=== PATIENT | male | born 1935 | race Caucasian/White ===

== ENCOUNTER 2017-11-13 18:32 | Inpatient (IN) | payer OTHER ==
--- NOTE | 2017-11-13 19:05 | PDOC ---
Rapid Medical Evaluation Time Seen by Provider: 11/13/17 18:46 Medical Evaluation: Allergies Allergy/AdvReac Type Severity Reaction Status Date / Time No Known Allergies Allergy Verified 11/13/17 18:46 11/13/17 18:46 Pt c/o: rt toe cellulitis. sent by pcp for iv abx, hx diabetes Pt on brief exam: + erythema to rt 2nd toe Pt ordered for : iv, septic w/u Pt to proceed to the ED Discharge Disposition - Diagnosis Cellulitis - Referrals - Patient Instructions - Post Discharge Activity
[2017-11-13 20:05] LABS: BASO % 0.9 % (0-2.0); EOS % 2.3 % (0-4.5); HEMATOCRIT 35.2 % (35.4-49); HEMOGLOBIN 12.1 GM/dL (11.7-16.9); LYMPH % 24.5 % (8-40); MCHC 34.3 g/dl (32.0-35.9); MEAN CELL VOLUME 87.4 fl (80-96); MEAN PLT VOLUME 8.4 fl (7.5-11.1); MONO % 10.5 % (3.8-10.2); NEUT % 61.8 % (42.8-82.8); PLATELET COUNT 215 K/MM3 (134-434); RBC 4.03 M/mm3 (4.00-5.60); RDW 14.1 % (11.9-15.9); WHITE BLOOD COUNT 5.9 K/mm3 (4.0-10.0)
[2017-11-13 20:28] LABS: INR 1.43 (0.82-1.09); PROTHROMBIN TIME (PATIENT) 16.2 SEC (9.98-11.88)
--- NOTE | 2017-11-13 20:30 | PDOC ---
History of Present Illness - General Chief Complaint: Wound Infection Stated Complaint: PCP ADMIT/CELLULITIS Time Seen by Provider: 11/13/17 18:46 History Source: Patient, Family, Primary Care Provider Exam Limitations: No Limitations - History of Present Illness Initial Comments: 11/13/17 20:21 Patient is an 20-year-old male with history of left knee replacement, diabetes, hypertension, BPH, cellulitis, CAD, status post CABG, referred here for treatment of cellulitis to the right second toe by Dr. Zepeda, podiatry. Patient was sent for admission for IV antibiotics. He has had this redness on his second left toe and has been treated with antibiotics for 1 month with no improvement. She has no complaints of nausea, vomiting, fever, chills, diarrhea. PMD: Dr. Dowling PMHX: as above PSHX: left knee replacement PSOCHX: Negative cig, drugs, EtOH ALL: NKDA GENERAL/CONSTITUTIONAL: [No fever or chills. No weakness. No weight change.] HEAD, EYES, EARS, NOSE AND THROAT: [No change in vision. No ear pain or discharge. No sore throat.] CARDIOVASCULAR: [No chest pain or shortness of breath.] RESPIRATORY: [No cough, wheezing, or hemoptysis.] GASTROINTESTINAL: [No nausea, vomiting, diarrhea or constipation. No rectal bleeding.] GENITOURINARY: [No dysuria, frequency, or change in urination.] MUSCULOSKELETAL: [No joint or muscle swelling or pain. No neck or back pain.] SKIN AND BREASTS: (+) cellulitis, (-) easy bruising.] NEUROLOGIC: [No headache, vertigo, loss of consciousness, or loss of sensation.] PSYCHIATRIC: [No depression or anxiety.] ENDOCRINE: [No increased thirst. No abnormal weight change.] HEMATOLOGIC/LYMPHATIC: [No anemia, easy bleeding, or history of blood clots.] ALLERGIC/IMMUNOLOGIC: [No hives or skin allergy. No latex allergy.] GENERAL: [The patient is awake, alert, and fully oriented, in no acute distress. ] HEAD: [Normal with no signs of trauma.] EYES: [Pupils equal, round and reactive to light, extraocular movements intact, sclera anicteric, conjunctiva clear.] ENT: [Ears normal, nares patent, oropharynx clear without exudates. Moist mucous membranes.] NECK: [Normal range of motion, supple without lymphadenopathy, JVD, or masses.] LUNGS: [Breath sounds equal, clear to auscultation bilaterally. No wheezes, and no crackles.] HEART: [Regular rate and rhythm, normal S1 and S2 without murmur, rub.] ABDOMEN: [Soft, nontender, normoactive bowel sounds. No guarding, no rebound. No masses.] EXTREMITIES: [Normal range of motion, no edema. No clubbing or cyanosis. No cords, erythema, or tenderness.] NEUROLOGICAL: [Cranial nerves II through XII grossly intact. Normal speech, normal gait.] PSYCH: [Normal mood, normal affect.] SKIN: [Warm, Dry, normal turgor, (+) tenderness, erythema to the left 2nd toe Past History - Past Medical History Allergies/Adverse Reactions: Allergies Allergy/AdvReac Type Severity Reaction Status Date / Time No Known Allergies Allergy Verified 11/13/17 18:46 Home Medications: Ambulatory Orders Furosemide [Lasix -] 100 mg PO DAILY 12/28/14 Metoprolol Succinate [Toprol Xl -] 25 mg PO DAILY 12/28/14 Potassium Chloride 20 meq PO DAILY 12/28/14 Tamsulosin HCl 0.4 mg PO DAILY 12/28/14 Aspirin 81 mg PO DAILY 11/13/17 Atorvastatin Ca [Lipitor] 60 mg PO DAILY 11/13/17 Carbidopa/Levodopa *Cr* 50/200 [Sinemet *Cr* 50/200 -] 1 tab PO DAILY 11/13/17 Cyanocobalamin (Vitamin B-12) [Vitamin B-12] 1,000 mcg PO DAILY 11/13/17 Metformin HCl 500 mg PO TID 11/13/17 Torsemide 60 mg PO DAILY 11/13/17 Anemia: No Asthma: No Cancer: No Cardiac Disorders: Yes (CAD) CVA: No COPD: No CHF: No Dementia: No Diabetes: No GI Disorders: No Disorders: Yes (BPH) HTN: Yes Hypercholesterolemia: Yes Liver Disease: No Seizures: No Thyroid Disease: No - Surgical History Cardiac Surgery: Yes (CABG 01/2010) - Immunization History Immunization Up to Date: Yes - Suicide/Smoking/Psychosocial Hx Smoking History: Never smoked Hx Alcohol Use: No Drug/Substance Use Hx: No Substance Use Type: None Hx Substance Use Treatment: No *Physical Exam - Vital Signs Last Vital Signs Temp Pulse Resp BP Pulse Ox 97.5 F L 95 H 18 120/65 98 11/13/17 18:46 11/13/17 18:46 11/13/17 18:46 11/13/17 18:46 11/13/17 18:46 ED Treatment Course - LABORATORY CBC & Chemistry Diagram: 11/13/17 15:45 11/13/17 15:45 - ADDITIONAL ORDERS Additional order review: 11/13/17 15:45 RBC 4.03 MCV 87.4 MCHC 34.3 RDW 14.1 MPV 8.4 Neutrophils % 61.8 Lymphocytes % 24.5 Monocytes % 10.5 H Eosinophils % 2.3 Basophils % 0.9 - RADIOLOGY Radiology Studies Ordered: Category Date Time Status FOOT-RIGHT [RAD] Stat Radiology 11/13/17 19:57 Ordered Medical Decision Making - Medical Decision Making 11/13/17 20:31 Patient is an 20-year-old male with history of left knee replacement, diabetes, hypertension, BPH, cellulitis, CAD, status post CABG, referred here for treatment of cellulitis to the right second toe by Dr. Zepeda, podiatry after treatment with antibx for 1 month. Patient has failed po antibx labs, xray toe IV antibx admit 11/13/17 23:24 xray foot left 2nd toe neg for osteo cxr cardiomegaly, sternotomy wire labs reviewed lactic 3.1 given IVF 30cc/hr zosyn and Vancomycin given repeat lactic ekg SR rate 76, PVC, rbbb, d/w with hosptialist will admit *DC/Admit/Observation/Transfer Diagnosis at time of Disposition: Failure of outpatient treatment Cellulitis Qualifiers: Site of cellulitis: extremity Site of cellulitis of extremity: toe Laterality: right Qualified Code(s): L03.031 - Cellulitis of right toe - Discharge Dispostion Condition at time of disposition: Stable Decision to Admit order Date/Time: 11/13/17 23:35 to medicine - Referrals Referrals: Rafiq Edwards MD [Primary Care Provider] - - Patient Instructions - Post Discharge Activity
[2017-11-13 20:32] LABS: ALBUMIN 2.9 g/dl (3.4-5.0); ANION GAP 8 (8-16); BILIRUBIN,TOTAL 0.4 mg/dL (0.2-1.0); BLOOD UREA NITROGEN 19 mg/dL (7-18); CALCIUM 7.8 mg/dL (8.5-10.1); CHLORIDE 104 mmol/L (98-107); CO2 29 mmol/L (21-32); CREATININE 1.3 mg/dL (0.7-1.3); GLUCOSE,RANDOM 105 mg/dL (74-106); POTASSIUM 3.5 mmol/L (3.5-5.1); SGOT/AST 13 U/L (15-37); SGPT/ALT < 6 U/L (12-78); SODIUM 141 mmol/L (136-145)
[2017-11-13 20:33] LABS: ALK PHOS 61 U/L (45-117)
[2017-11-13] MEDS ORDERED: PIPERACIL/TAZOB 3.375 GM 3.375 GM/50 ML PREMIX IVPB ONE (21:09)
[2017-11-13] MEDS ORDERED: VANCOMYCIN 1,000 MG in DEXTROSE 5%-WATER - 250 ML IVPB ONE (21:09)
[2017-11-13] MEDS ORDERED: SODIUM CHLORIDE 0.9% 1000 ML INFUS.BAG IV SCH (21:15)
--- NOTE | 2017-11-13 21:21 | PDOC ---
*Physical Exam - Vital Signs Last Vital Signs Temp Pulse Resp BP Pulse Ox 97.5 F L 95 H 18 120/65 98 11/13/17 18:46 11/13/17 18:46 11/13/17 18:46 11/13/17 18:46 11/13/17 18:46 ED Treatment Course - LABORATORY CBC & Chemistry Diagram: 11/13/17 15:45 11/13/17 15:45 - ADDITIONAL ORDERS Additional order review: Laboratory Results 11/13/17 11/13/17 11/13/17 19:50 15:45 15:45 PT with INR 16.20 H INR 1.43 H Sodium 141 Potassium 3.5 D Chloride 104 Carbon Dioxide 29 Anion Gap 8 BUN 19 H D Creatinine 1.3 Creat Clearance w eGFR 53.12 Random Glucose 105 Lactic Acid 3.1 H* Calcium 7.8 L Total Bilirubin 0.4 AST 13 L D ALT < 6 L D Alkaline Phosphatase 61 Total Protein 6.0 L Albumin 2.9 L D 11/13/17 15:45 RBC 4.03 MCV 87.4 MCHC 34.3 RDW 14.1 MPV 8.4 Neutrophils % 61.8 Lymphocytes % 24.5 Monocytes % 10.5 H Eosinophils % 2.3 Basophils % 0.9 Medical Decision Making - Medical Decision Making 11/13/17 21:21 The patient was seen and evaluated in conjunction with ROBERTO Yeboah under my direct supervision, ancillary studies were reviewed. I independently interviewed and evaluated the patient and I agree with the plan as outlined by ROBERTO Fitzgerald. *DC/Admit/Observation/Transfer Diagnosis at time of Disposition: Cellulitis Qualifiers: Site of cellulitis: extremity Site of cellulitis of extremity: toe Laterality: right Qualified Code(s): L03.031 - Cellulitis of right toe - Referrals Referrals: Rafiq Edwards MD [Primary Care Provider] - - Patient Instructions - Post Discharge Activity
[2017-11-13] MEDS ORDERED: VANCOMYCIN 1 GRAM (PRE-DOCKED) 1,000 MG/250 ML BAG IVPB ONE (21:27)
[2017-11-13] MEDS ORDERED: PIPERACILLIN/TAZOB 3.375 GM 3.375 GM/50 ML BAG IVPB ONE (21:27)
[2017-11-13 21:39] LABS: URINE APPEARANCE CLEAR; URINE BILIRUBIN NEGATIVE (NEGATIVE); URINE BLOOD NEGATIVE (NEGATIVE); URINE COLOR LTYELLOW; URINE GLUCOSE (UA) NEGATIVE (NEGATIVE); URINE KETONE TRACE (NEGATIVE); URINE LEUK ESTERASE NEGATIVE (NEGATIVE); URINE NITRITE NEGATIVE (NEGATIVE); URINE PROTEIN NEGATIVE (NEGATIVE); URINE UROBILINOGEN NEGATIVE mg/dL (0.2-1.0)
--- NOTE | 2017-11-13 23:29 | PN ---
Teaching Attending Note Name of Resident: Andre Gould ATTENDING PHYSICIAN STATEMENT I saw and evaluated the patient. Chart, data, imaging reviewed. I reviewed the resident's note and discussed the case with the resident. I agree with the resident's findings and plan as documented. 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 Patient was receiving a 10 day course of unknown PO antibiotics for cellulitis of medial right foot. Left second toe erythema began about 3 days ago, associated with some pain, difficulty with ambulation. OBJECTIVE: Last Vital Signs Temp Pulse Resp BP Pulse Ox 97.2 F L 80 20 106/72 97 11/13/17 21:53 11/13/17 22:56 11/13/17 22:56 11/13/17 22:56 11/13/17 22:56 general- aaox3, comfortable, nad heent- no scleral pallor or injection neck-supple cv-s1+s2+ RRR chest- cta b/l, no rales, rhonchi, or wheezing abdomen- soft, nt, BS+ ext- left second toe erythematous, mildly warm to touch, nontender, no ulcers seen on feet. Abnormal Lab Results 11/13/17 11/13/17 11/13/17 15:45 15:45 15:45 Hct 35.2 L D Monocytes % 10.5 H PT with INR INR BUN 19 H D Lactic Acid 3.1 H* Calcium 7.8 L AST 13 L D ALT < 6 L D Total Protein 6.0 L Albumin 2.9 L D Urine Ketones 11/13/17 11/13/17 19:50 21:30 Hct Monocytes % PT with INR 16.20 H INR 1.43 H BUN Lactic Acid Calcium AST ALT Total Protein Albumin Urine Ketones Trace H ASSESSMENT AND PLAN: #Left second toe cellulitis with lactic acidosis and no systemic symptoms. Should evaluate for possible underlying OM, although less likely. Received vancomycin and pip/tazo in ER. -blood cultures x2 -IVF hydration -ESR, CRP -repeat lactate -xray of left foot to evaluate for periosteal elevation -pain control -ID evaluation -vancomycin and pip/tazo -continue home medications for chronic medical problems -heparin sc for DVT ppx
--- NOTE | 2017-11-13 23:38 | PDOC ---
*Physical Exam - Vital Signs Last Vital Signs Temp Pulse Resp BP Pulse Ox 97.2 F L 80 20 106/72 97 11/13/17 21:53 11/13/17 22:56 11/13/17 22:56 11/13/17 22:56 11/13/17 22:56 ED Treatment Course - LABORATORY CBC & Chemistry Diagram: 11/13/17 15:45 11/13/17 15:45 - ADDITIONAL ORDERS Additional order review: Laboratory Results 11/13/17 11/13/17 11/13/17 22:54 21:30 19:50 PT with INR 16.20 H INR 1.43 H Sodium Potassium Chloride Carbon Dioxide Anion Gap BUN Creatinine Creat Clearance w eGFR Random Glucose Lactic Acid 2.0 Calcium Total Bilirubin AST ALT Alkaline Phosphatase Total Protein Albumin Urine Color Ltyellow Urine Appearance Clear Urine pH 5.0 Ur Specific [place] 1.013 Urine Protein Negative Urine Glucose (UA) Negative Urine Ketones Trace H Urine Blood Negative Urine Nitrite Negative Urine Bilirubin Negative Urine Urobilinogen Negative Ur Leukocyte Esterase Negative Blood Type Antibody Screen 11/13/17 11/13/17 11/13/17 15:45 15:45 15:45 PT with INR INR Sodium 141 Potassium 3.5 D Chloride 104 Carbon Dioxide 29 Anion Gap 8 BUN 19 H D Creatinine 1.3 Creat Clearance w eGFR 53.12 Random Glucose 105 Lactic Acid 3.1 H* Calcium 7.8 L Total Bilirubin 0.4 AST 13 L D ALT < 6 L D Alkaline Phosphatase 61 Total Protein 6.0 L Albumin 2.9 L D Urine Color Urine Appearance Urine pH Ur Specific [place] Urine Protein Urine Glucose (UA) Urine Ketones Urine Blood Urine Nitrite Urine Bilirubin Urine Urobilinogen Ur Leukocyte Esterase Blood Type B POSITIVE Antibody Screen Negative 11/13/17 15:45 RBC 4.03 MCV 87.4 MCHC 34.3 RDW 14.1 MPV 8.4 Neutrophils % 61.8 Lymphocytes % 24.5 Monocytes % 10.5 H Eosinophils % 2.3 Basophils % 0.9 - RADIOLOGY Radiology Studies Ordered: Category Date Time Status FOOT-LEFT [RAD] Stat Radiology 11/13/17 22:19 Taken - Medications Given in the ED: ED Medications Discontinued Medications Generic Name Dose Route Start Last Admin Trade Name Freq PRN Reason Stop Dose Admin Vancomycin HCl 1,000 mg/ 250 mls @ 250 mls/hr 11/13/17 21:09 11/13/17 21:45 Dextrose IVPB 11/13/17 22:08 250 mls/hr ONCE ONE Administration Protocol Piperacillin/Tazobactam/Dextrose 3.375 gm 11/13/17 21:09 11/13/17 21:30 Zosyn 3.375gm Ivpb (Premix) IVPB 11/13/17 21:10 3.375 gm ONCE ONE Administration *DC/Admit/Observation/Transfer Diagnosis at time of Disposition: Failure of outpatient treatment Cellulitis Qualifiers: Site of cellulitis: extremity Site of cellulitis of extremity: toe Laterality: right Qualified Code(s): L03.031 - Cellulitis of right toe - Discharge Dispostion Condition at time of disposition: Stable Admit: Yes - Referrals Referrals: Rafiq Edwards MD [Primary Care Provider] - - Patient Instructions - Post Discharge Activity
[2017-11-13] MEDS ORDERED: POTASSIUM CHLORIDE TABS 20 MEQ TABLET.ER (FP) PO ONE (23:45)
--- NOTE | 2017-11-13 23:54 | HP ---
CHIEF COMPLAINT: Left foot swelling PCP: Dr. Mercado HISTORY OF PRESENT ILLNESS: The patient is an 82 yo m w/ PMH DM, HTN, CAD s/p CABG x5 sent by his audit analyst (Dr. Zepeda) to the ED for further evaluation of swelling in his left toe. Patient states that approx 2 weeks ago, he developed swelling and pain in his RIGHT foot. He went to his audit analyst, who prescribed him an unknown antibiotic for 10 days. The patient completed 7 days of this antibiotic with resolution of the pain and swelling. Today, the patient's audit analyst noticed swelling and erythema of his LEFT second toe and sent him to the ED for evaluation. Patient states that the swelling, erythema and pain in his LEFT 2nd toe developed suddenly approx. 3 days ago and got progressively worse, eventually interfering with his walking. Patient and patient's check his feet daily and states that there was no wounds prior to presentation. Patient denies trauma to the area. Patient denies fevers, chills, chest pain, abdominal pain. ER course was notable for: (1) Lactic acidosis 3.1 (2) potassium 3.5 (3) Recent Travel: none PAST MEDICAL HISTORY: DM HTN CAD PAST SURGICAL HISTORY: Left Total knee replacement Social History: Smoking: denies Alcohol: denies Drugs: denies Family History: non-contributory Allergies No Known Allergies Allergy (Verified 11/13/17 18:46) HOME MEDICATIONS: Home Medications Medication Instructions Recorded Furosemide [Lasix -] 100 mg PO DAILY 12/28/14 Metoprolol Succinate [Toprol Xl -] 25 mg PO DAILY 12/28/14 Potassium Chloride 20 meq PO DAILY 12/28/14 Tamsulosin HCl 0.4 mg PO DAILY 12/28/14 Aspirin 81 mg PO DAILY 11/13/17 Atorvastatin Ca [Lipitor] 60 mg PO DAILY 11/13/17 Carbidopa/Levodopa *Cr* 50/200 1 tab PO DAILY 11/13/17 [Sinemet *Cr* 50/200 -] Cyanocobalamin (Vitamin B-12) 1,000 mcg PO DAILY 11/13/17 [Vitamin B-12] Metformin HCl 500 mg PO TID 11/13/17 Torsemide 60 mg PO DAILY 11/13/17 REVIEW OF SYSTEMS CONSTITUTIONAL: Absent: fever, chills, diaphoresis, generalized weakness, malaise, loss of appetite, weight change HEENT: Absent: rhinorrhea, nasal congestion, throat pain, throat swelling, difficulty swallowing, mouth swelling, ear pain, eye pain, visual changes CARDIOVASCULAR: Absent: chest pain, syncope, palpitations, irregular heart rate, lightheadedness , peripheral edema RESPIRATORY: Absent: cough, shortness of breath, dyspnea with exertion, orthopnea, wheezing, stridor, hemoptysis GASTROINTESTINAL: Absent: abdominal pain, abdominal distension, nausea, vomiting, diarrhea, constipation, melena, hematochezia GENITOURINARY: Absent: dysuria, frequency, urgency, hesitancy, hematuria, flank pain, genital pain MUSCULOSKELETAL: Absent: myalgia, arthralgia, back pain, neck pain SKIN: Absent: rash, itching, pallor HEMATOLOGIC/IMMUNOLOGIC: Absent: easy bleeding, easy bruising, lymphadenopathy, frequent infections ENDOCRINE: Absent: unexplained weight gain, unexplained weight loss, heat intolerance, cold intolerance NEUROLOGIC: Absent: headache, focal weakness or paresthesias, dizziness, unsteady gait, seizure, mental status changes, bladder or bowel incontinence PSYCHIATRIC: Absent: anxiety, depression, suicidal or homicidal ideation, hallucinations. PHYSICAL EXAMINATION Vital Signs - 24 hr 11/13/17 11/13/17 11/13/17 18:46 21:53 22:56 Temperature 97.5 F L 97.2 F L Pulse Rate 95 H Pulse Rate [ 70 80 Apical] Respiratory 18 20 20 Rate Blood Pressure 120/65 Blood Pressure 84/57 106/72 [Right Arm] O2 Sat by Pulse 98 97 97 Oximetry (%) GENERAL: Awake, alert, and fully oriented, in no acute distress. HEAD: Normal with no signs of trauma. EYES: Pupils equal, round and reactive to light, extraocular movements intact, sclera anicteric, conjunctiva clear. No lid lag. EARS, NOSE, THROAT: Ears normal, nares patent, oropharynx clear without exudates. Moist mucous membranes. NECK: Normal range of motion, supple without lymphadenopathy, JVD, or masses. LUNGS: Breath sounds equal, clear to auscultation bilaterally. No wheezes, and no crackles. No accessory muscle use. HEART: Regular rate and rhythm, normal S1 and S2 without murmur, rub or gallop. ABDOMEN: Soft, nontender, not distended, normoactive bowel sounds, no guarding, no rebound, no masses. No hepatomegaly or splenomegaly. LOWER EXTREMITIES: 2+ pulses, warm, well-perfused. No calf tenderness. No peripheral edema. NEUROLOGICAL: Cranial nerves II-X intact. Normal speech. Normal gait. PSYCHIATRIC: Cooperative. Good eye contact. Appropriate mood and affect. SKIN: Warm, dry, normal turgor, no rashes or lesions noted, normal capillary refill. There is an area of erythema and swelling on the left second toe. area is warm and tender to palpation or manipulation of the toe. Laboratory Results - last 24 hr 11/13/17 11/13/17 11/13/17 15:45 15:45 15:45 WBC 5.9 RBC 4.03 Hgb 12.1 D Hct 35.2 L D MCV 87.4 MCH 30.0 MCHC 34.3 RDW 14.1 Plt Count 215 D MPV 8.4 Neutrophils % 61.8 Lymphocytes % 24.5 Monocytes % 10.5 H Eosinophils % 2.3 Basophils % 0.9 PT with INR INR Sodium 141 Potassium 3.5 D Chloride 104 Carbon Dioxide 29 Anion Gap 8 BUN 19 H D Creatinine 1.3 Creat Clearance w eGFR 53.12 Random Glucose 105 Lactic Acid 3.1 H* Calcium 7.8 L Total Bilirubin 0.4 AST 13 L D ALT < 6 L D Alkaline Phosphatase 61 Total Protein 6.0 L Albumin 2.9 L D Urine Color Urine Appearance Urine pH Ur Specific [place] Urine Protein Urine Glucose (UA) Urine Ketones Urine Blood Urine Nitrite Urine Bilirubin Urine Urobilinogen Ur Leukocyte Esterase Blood Type Antibody Screen 11/13/17 11/13/17 11/13/17 15:45 19:50 21:30 WBC RBC Hgb Hct MCV MCH MCHC RDW Plt Count MPV Neutrophils % Lymphocytes % Monocytes % Eosinophils % Basophils % PT with INR 16.20 H INR 1.43 H Sodium Potassium Chloride Carbon Dioxide Anion Gap BUN Creatinine Creat Clearance w eGFR Random Glucose Lactic Acid Calcium Total Bilirubin AST ALT Alkaline Phosphatase Total Protein Albumin Urine Color Ltyellow Urine Appearance Clear Urine pH 5.0 Ur Specific [place] 1.013 Urine Protein Negative Urine Glucose (UA) Negative Urine Ketones Trace H Urine Blood Negative Urine Nitrite Negative Urine Bilirubin Negative Urine Urobilinogen Negative Ur Leukocyte Esterase Negative Blood Type B POSITIVE Antibody Screen Negative 11/13/17 22:54 WBC RBC Hgb Hct MCV MCH MCHC RDW Plt Count MPV Neutrophils % Lymphocytes % Monocytes % Eosinophils % Basophils % PT with INR INR Sodium Potassium Chloride Carbon Dioxide Anion Gap BUN Creatinine Creat Clearance w eGFR Random Glucose Lactic Acid 2.0 Calcium Total Bilirubin AST ALT Alkaline Phosphatase Total Protein Albumin Urine Color Urine Appearance Urine pH Ur Specific [place] Urine Protein Urine Glucose (UA) Urine Ketones Urine Blood Urine Nitrite Urine Bilirubin Urine Urobilinogen Ur Leukocyte Esterase Blood Type Antibody Screen ASSESSMENT/PLAN: The patient is an 82 yo m w/ PMH DM , HTN who is being admitted for evaluation of left second toe cellulitis. #Left second toe cellulitis r/o osteomyelitis -s/p vanc/zosyn in ED, will continue -ID consult -f/u XR of left foot -ESR, CRP w/ AM labs -lactic acidosis to 3.1, resolved on repeat -blood and urine culture pending #Mild hypokalemia -3.5 -patient on supplementation as outpatient -40meq now -resume home replacement -trend in AM #diabetes -BGM ACHS -ISS ACHS -HbA1C #HTN -resume home meds #FEN -no fluids indicated -monitor lytes -diabetic diet #Prophylaxis -Hep SQ TID #dispo -admit to med surg Visit type - Emergency Visit Emergency Visit: Yes ED Registration Date: 11/14/17 Care time: The patient presented to the Emergency Department on the above date and was hospitalized for further evaluation of their emergent condition. - New Patient This patient is new to me today: Yes Date on this admission: 11/14/17 - Critical Care Critical Care patient: No Hospitalist Screening - Colonoscopy Questionnaire Colonoscopy Questionnaire: Colonoscopy Questionnaire - Patient: 50 - 75 years old and never had a screening colonoscopy: Unknown History of colon or rectal polyps, or CA: Unknown History of IBD, Crohn's disease or UC: Unknown History of abdominal radiation therapy as a child: Unknown - Relative: 1 with colon or rectal CA, or polyps at age 60 or younger: Unknown Colon or rectal CA diagnosed at age 45 or younger: Unknown Multiple relatives with colon or rectal CA: Unknown - Outcome: Screening Result: Negative Screen
[2017-11-14] MEDS ORDERED: POTASSIUM CHLORIDE TABS 20 MEQ TABLET.ER (FP) PO ONE (00:40)
[2017-11-14 01:45] VITALS: BMI 40.5
[2017-11-14] MEDS ORDERED: PIPERACILLIN/TAZOB 3.375 GM/50 ML PRE-DOCKED IVPB ONE (05:00)
[2017-11-14] MEDS: HEPARIN NA (PORCINE) 5,000 UNITS/ML 1ML VIAL SQ SCH ×3 (05:30→22:10)
[2017-11-14] MEDS: INSULIN SLIDING SCALE (NOVOLOG) 1 VIAL SQ SCH ×4 (06:07→22:10)
[2017-11-14 07:36] LABS: BASO % 0.7 % (0-2.0); EOS % 2.5 % (0-4.5); HEMATOCRIT 34.1 % (35.4-49); HEMOGLOBIN 11.7 GM/dL (11.7-16.9); LYMPH % 23.9 % (8-40); MCH 29.9 pg (25.7-33.7); MCHC 34.3 g/dl (32.0-35.9); MEAN CELL VOLUME 87.2 fl (80-96); MONO % 9.5 % (3.8-10.2); NEUT % 63.4 % (42.8-82.8); PLATELET COUNT 187 K/MM3 (134-434); RBC 3.91 M/mm3 (4.00-5.60); RDW 13.9 % (11.9-15.9); WHITE BLOOD COUNT 6.3 K/mm3 (4.0-10.0)
[2017-11-14 07:46] LABS: INR 1.49 (0.82-1.09); PROTHROMBIN TIME (PATIENT) 16.8 SEC (9.98-11.88)
[2017-11-14 08:15] LABS: CHLORIDE 107 mmol/L (98-107); POTASSIUM 3.6 mmol/L (3.5-5.1); SODIUM 142 mmol/L (136-145)
[2017-11-14 08:21] LABS: ALBUMIN 2.7 g/dl (3.4-5.0); ALK PHOS 47 U/L (45-117); ANION GAP 6 (8-16); BILIRUBIN,TOTAL 0.6 mg/dL (0.2-1.0); BLOOD UREA NITROGEN 14 mg/dL (7-18); CALCIUM 7.5 mg/dL (8.5-10.1); CO2 29 mmol/L (21-32); CREATININE 0.9 mg/dL (0.7-1.3); GLUCOSE,RANDOM 90 mg/dL (74-106); MAGNESIUM 1.8 mg/dL (1.8-2.4); PHOSPHOROUS 2.2 mg/dL (2.5-4.9); SGOT/AST 12 U/L (15-37); SGPT/ALT 10 U/L (12-78); TOT PROT 5.3 g/dl (6.4-8.2)
[2017-11-14] MEDS ORDERED: POTASSIUM PHOSPHATE 30 MM in SODIUM CHLORIDE 500 ML IVPB ONE (08:45)
[2017-11-14] MEDS ORDERED: PT OWN MED DRAWER 7, Y5N ONE ×4 (09:49→23:08)
[2017-11-14] MEDS: TAMSULOSIN HCL 0.4 MG CAP.ER.24H (FP) PO SCH (09:58)
[2017-11-14] MEDS: ASPIRIN 81 MG CHEWABLE TABLETS PO SCH (09:58)
[2017-11-14] MEDS: POTASSIUM CHLORIDE TABS 20 MEQ TABLET.ER (FP) PO SCH (09:59)
[2017-11-14] MEDS: metoPROLOL SUCCINATE 25 MG TAB.SR.24H (FP) PO SCH (10:00)
[2017-11-14] MEDS ORDERED: TORSEMIDE 20 MG TABLET (FP) PO SCH (10:00)
[2017-11-14] MEDS ORDERED: PIPERACILLIN/TAZOB 3.375 GM 3.375 GM in DEXTROSE 5%-WATER - 50 ML IVPB SCH (10:00)
--- NOTE | 2017-11-14 10:03 | EKG ---
Test Reason : Blood Pressure : / mmHG Vent. 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
--- NOTE | 2017-11-14 13:22 | PN ---
Progress Note (short form) - Note Progress Note: ID Consult dictated Cellulitis L 2nd toe ? Soft tissue abscess, dorsum 2nd toe Diabetes mellitus Await c/s Surgical evaluation Empiric vancomycin/ zosyn
--- NOTE | 2017-11-14 14:44 | PN ---
Teaching Attending Note Name of Resident: Lorene Larson ATTENDING PHYSICIAN STATEMENT Time of evaluation: 10:20 AM I saw and evaluated the patient. I reviewed the resident's note and discussed the case with the resident. I agree with the resident's findings and plan as documented. SUBJECTIVE: Patient seen and examined. still with left toe and foot pain, no other complaints, no new fevers, chills. OBJECTIVE: Vital Signs Period Temp Pulse Resp BP Sys/Franco Pulse Ox Last 24 Hr 97.2 F-98.0 F 70-95 18-20 84-120/55-74 97-99 Intake & Output 11/11/17 11/12/17 11/13/17 11/14/17 23:59 23:59 23:59 23:59 Intake Total 2300 700 Output Total 300 250 Balance 2000 450 Weight 237 lb 243 lb 8 oz General: sitting in bed in no acute distress Extremiteis: left second toe 1 cm circular red warm tendern swelling over dorsum , Also 2 cm circular swelling with tenderness but no warmth or erythema over dorsum left foot, positive DP plulses. No swelling or erythema RLE Home Medication List Medication Instructions Recorded Confirmed Type Furosemide [Lasix -] 100 mg PO DAILY 12/28/14 11/13/17 History Metoprolol Succinate [Toprol Xl -] 25 mg PO DAILY 12/28/14 11/13/17 History Potassium Chloride 20 meq PO DAILY 12/28/14 11/13/17 History Tamsulosin HCl 0.4 mg PO DAILY 12/28/14 11/13/17 History Aspirin 81 mg PO DAILY 11/13/17 11/13/17 History Atorvastatin Ca [Lipitor] 60 mg PO DAILY 11/13/17 11/13/17 History Carbidopa/Levodopa *Cr* 50/200 1 tab PO DAILY 11/13/17 11/13/17 History [Sinemet *Cr* 50/200 -] Cyanocobalamin (Vitamin B-12) 1,000 mcg PO DAILY 11/13/17 11/13/17 History [Vitamin B-12] Metformin HCl 500 mg PO TID 11/13/17 11/13/17 History Torsemide 60 mg PO DAILY 11/13/17 11/13/17 History Active Medications Generic Name Dose Route Start Last Admin Trade Name Freq PRN Reason Stop Dose Admin Aspirin 81 mg 11/14/17 10:00 11/14/17 09:58 Asa - PO 81 mg DAILY JESS Administration Atorvastatin Calcium 60 mg 11/14/17 22:00 Lipitor - PO HS JESS Carbidopa/Levodopa 1 combo 11/14/17 10:00 11/14/17 11:44 Sinemet *Cr* 50/200 - PO 1 combo DAILY JESS Administration Heparin Sodium (Porcine) 5,000 unit 11/14/17 06:00 11/14/17 13:47 Heparin - SQ 5,000 unit TID JESS Administration Potassium Phosphate 30 mm/ 510 mls @ 62.5 mls/hr 11/14/17 08:45 11/14/17 10: 01 Sodium Chloride IVPB 11/14/17 16:54 62.5 mls/hr ONCE ONE Administration Vancomycin HCl 1,000 mg/ 250 mls @ 250 mls/hr 11/14/17 14:30 Dextrose IVPB Q12H [facility] Protocol Piperacillin Sod/Tazobactam 50 mls @ 100 mls/hr 11/14/17 18:00 Sod 3.375 gm/ Dextrose IVPB Q8H-IV [facility] Protocol Insulin Aspart 1 vial 11/14/17 07:00 11/14/17 11:38 Novolog Vial Sliding Scale - SQ Not Given ACHS [facility] Protocol Metoprolol Succinate 25 mg 11/14/17 10:00 11/14/17 10:00 Toprol Xl - PO 25 mg DAILY JESS Administration Potassium Chloride 20 meq 11/14/17 10:00 11/14/17 09:59 K-Dur - PO 20 meq DAILY JESS Administration Tamsulosin HCl 0.4 mg 11/14/17 08:30 11/14/17 09:58 Flomax - PO 0.4 mg DAILY@0830 JESS Administration Torsemide 60 mg 11/14/17 10:00 11/14/17 09:58 Demadex - PO 60 mg DAILY JESS Administration Laboratory Results - last 24 hr 11/13/17 11/13/17 11/13/17 15:45 15:45 15:45 WBC 5.9 RBC 4.03 Hgb 12.1 D Hct 35.2 L D MCV 87.4 MCH 30.0 MCHC 34.3 RDW 14.1 Plt Count 215 D MPV 8.4 Neutrophils % 61.8 Lymphocytes % 24.5 Monocytes % 10.5 H Eosinophils % 2.3 Basophils % 0.9 ESR PT with INR INR Sodium 141 Potassium 3.5 D Chloride 104 Carbon Dioxide 29 Anion Gap 8 BUN 19 H D Creatinine 1.3 Creat Clearance w eGFR 53.12 POC Glucometer Random Glucose 105 Hemoglobin A1c % Lactic Acid 3.1 H* Calcium 7.8 L Phosphorus Magnesium Total Bilirubin 0.4 AST 13 L D ALT < 6 L D Alkaline Phosphatase 61 C-Reactive Protein Total Protein 6.0 L Albumin 2.9 L D Urine Color Urine Appearance Urine pH Ur Specific [place] Urine Protein Urine Glucose (UA) Urine Ketones Urine Blood Urine Nitrite Urine Bilirubin Urine Urobilinogen Ur Leukocyte Esterase Blood Type Antibody Screen 11/13/17 11/13/17 11/13/17 15:45 19:50 21:30 WBC RBC Hgb Hct MCV MCH MCHC RDW Plt Count MPV Neutrophils % Lymphocytes % Monocytes % Eosinophils % Basophils % ESR PT with INR 16.20 H INR 1.43 H Sodium Potassium Chloride Carbon Dioxide Anion Gap BUN Creatinine Creat Clearance w eGFR POC Glucometer Random Glucose Hemoglobin A1c % Lactic Acid Calcium Phosphorus Magnesium Total Bilirubin AST ALT Alkaline Phosphatase C-Reactive Protein Total Protein Albumin Urine Color Ltyellow Urine Appearance Clear Urine pH 5.0 Ur Specific [place] 1.013 Urine Protein Negative Urine Glucose (UA) Negative Urine Ketones Trace H Urine Blood Negative Urine Nitrite Negative Urine Bilirubin Negative Urine Urobilinogen Negative Ur Leukocyte Esterase Negative Blood Type B POSITIVE Antibody Screen Negative 11/13/17 11/14/17 11/14/17 22:54 05:25 06:40 WBC RBC Hgb Hct MCV MCH MCHC RDW Plt Count MPV Neutrophils % Lymphocytes % Monocytes % Eosinophils % Basophils % ESR PT with INR INR Sodium 142 Potassium 3.6 Chloride 107 Carbon Dioxide 29 Anion Gap 6 L BUN 14 D Creatinine 0.9 D Creat Clearance w eGFR > 60 POC Glucometer 90 Random Glucose 90 Hemoglobin A1c % Lactic Acid 2.0 Calcium 7.5 L Phosphorus 2.2 L Magnesium 1.8 Total Bilirubin 0.6 D AST 12 L ALT 10 L D Alkaline Phosphatase 47 D C-Reactive Protein 0.9 H Total Protein 5.3 L Albumin 2.7 L Urine Color Urine Appearance Urine pH Ur Specific [place] Urine Protein Urine Glucose (UA) Urine Ketones Urine Blood Urine Nitrite Urine Bilirubin Urine Urobilinogen Ur Leukocyte Esterase Blood Type Antibody Screen 03/02/18 03/02/18 03/02/18 06:40 06:40 06:40 WBC 6.3 RBC 3.91 L Hgb 11.7 Hct 34.1 L MCV 87.2 MCH 29.9 MCHC 34.3 RDW 13.9 Plt Count 187 MPV 8.0 Neutrophils % 63.4 Lymphocytes % 23.9 Monocytes % 9.5 Eosinophils % 2.5 Basophils % 0.7 ESR 24 H PT with INR INR Sodium Potassium Chloride Carbon Dioxide Anion Gap BUN Creatinine Creat Clearance w eGFR POC Glucometer Random Glucose Hemoglobin A1c % 6.2 H Lactic Acid Calcium Phosphorus Magnesium Total Bilirubin AST ALT Alkaline Phosphatase C-Reactive Protein Total Protein Albumin Urine Color Urine Appearance Urine pH Ur Specific [place] Urine Protein Urine Glucose (UA) Urine Ketones Urine Blood Urine Nitrite Urine Bilirubin Urine Urobilinogen Ur Leukocyte Esterase Blood Type Antibody Screen 18 11/14/17 06:40 11:37 WBC RBC Hgb Hct MCV MCH MCHC RDW Plt Count MPV Neutrophils % Lymphocytes % Monocytes % Eosinophils % Basophils % ESR PT with INR 16.80 H INR 1.49 H Sodium Potassium Chloride Carbon Dioxide Anion Gap BUN Creatinine Creat Clearance w eGFR POC Glucometer 107 Random Glucose Hemoglobin A1c % Lactic Acid Calcium Phosphorus Magnesium Total Bilirubin AST ALT Alkaline Phosphatase C-Reactive Protein Total Protein Albumin Urine Color Urine Appearance Urine pH Ur Specific [place] Urine Protein Urine Glucose (UA) Urine Ketones Urine Blood Urine Nitrite Urine Bilirubin Urine Urobilinogen Ur Leukocyte Esterase Blood Type Antibody Screen ASSESSMENT AND PLAN: 82 yom with HTN, DM, CAD s/p CABG/5 stents, ?CHF admitted with left diabetic foot -Left diabetic foot with left second toe cellulitis+/- abscess and ?abscess of dorsum left foot -Lactic acidosis, resolved -CAD s/p CABG/PCI, ?CHF -HTN -NIDDM Plan: Zosyn/vancomycin. ID input appreciated. ?abscess left second toe/dorsum left foot Podiatry consult. Hold off additional IVF for now. lactic acidosis resolved. Torsemide, K, phos supplementation. Hold metformin, ISS, diabetic diet. Continue ASA/statin/metoprolol. DVTPPx dispo pending surgical plans and antibiotic needs. Plan discussed with patient in detail, all questions answered.
--- NOTE | 2017-11-14 15:42 | PN ---
Physical Exam: SUBJECTIVE: Patient seen and examined. Pt c/o pain to dorsum of Left foot. Otherwise, pt has no c/o. Pt denies chest pain, sob, abdominal pain, fever, chills, nausea, vomiting, constipation, diarrhea. OBJECTIVE: Vital Signs Period Temp Pulse Resp BP Sys/Franco Pulse Ox Last 24 Hr 97.2 F-98.0 F 70-95 18-20 84-120/55-74 97-99 GENERAL: The patient is awake, alert, and fully oriented, in no acute distress. LUNGS: Breath sounds equal, clear to auscultation bilaterally, no wheezes, no crackles, no accessory muscle use. HEART: Regular rate and rhythm, S1, S2 without murmur, rub or gallop. ABDOMEN: Soft, nontender, nondistended, normoactive bowel sounds, no guarding. EXTREMITIES: 1+ nelli pulses, warm, well-perfused, no edema. Left 2nd toe erythematous and swollen at Proximal Interphalangeal joint. Dorsum of Left foot quite tender to palpation with 3cm possible abscess/circular swelling. PSYCH: Normal mood, normal affect. Laboratory Results - last 24 hr 11/13/17 11/13/17 11/13/17 15:45 15:45 15:45 WBC 5.9 RBC 4.03 Hgb 12.1 D Hct 35.2 L D MCV 87.4 MCH 30.0 MCHC 34.3 RDW 14.1 Plt Count 215 D MPV 8.4 Neutrophils % 61.8 Lymphocytes % 24.5 Monocytes % 10.5 H Eosinophils % 2.3 Basophils % 0.9 ESR PT with INR INR Sodium 141 Potassium 3.5 D Chloride 104 Carbon Dioxide 29 Anion Gap 8 BUN 19 H D Creatinine 1.3 Creat Clearance w eGFR 53.12 POC Glucometer Random Glucose 105 Hemoglobin A1c % Lactic Acid 3.1 H* Calcium 7.8 L Phosphorus Magnesium Total Bilirubin 0.4 AST 13 L D ALT < 6 L D Alkaline Phosphatase 61 C-Reactive Protein Total Protein 6.0 L Albumin 2.9 L D Urine Color Urine Appearance Urine pH Ur Specific [place] Urine Protein Urine Glucose (UA) Urine Ketones Urine Blood Urine Nitrite Urine Bilirubin Urine Urobilinogen Ur Leukocyte Esterase Blood Type Antibody Screen 11/13/17 11/13/17 11/13/17 15:45 19:50 21:30 WBC RBC Hgb Hct MCV MCH MCHC RDW Plt Count MPV Neutrophils % Lymphocytes % Monocytes % Eosinophils % Basophils % ESR PT with INR 16.20 H INR 1.43 H Sodium Potassium Chloride Carbon Dioxide Anion Gap BUN Creatinine Creat Clearance w eGFR POC Glucometer Random Glucose Hemoglobin A1c % Lactic Acid Calcium Phosphorus Magnesium Total Bilirubin AST ALT Alkaline Phosphatase C-Reactive Protein Total Protein Albumin Urine Color Ltyellow Urine Appearance Clear Urine pH 5.0 Ur Specific [place] 1.013 Urine Protein Negative Urine Glucose (UA) Negative Urine Ketones Trace H Urine Blood Negative Urine Nitrite Negative Urine Bilirubin Negative Urine Urobilinogen Negative Ur Leukocyte Esterase Negative Blood Type B POSITIVE Antibody Screen Negative 11/13/17 11/14/17 11/14/17 22:54 05:25 06:40 WBC RBC Hgb Hct MCV MCH MCHC RDW Plt Count MPV Neutrophils % Lymphocytes % Monocytes % Eosinophils % Basophils % ESR PT with INR INR Sodium 142 Potassium 3.6 Chloride 107 Carbon Dioxide 29 Anion Gap 6 L BUN 14 D Creatinine 0.9 D Creat Clearance w eGFR > 60 POC Glucometer 90 Random Glucose 90 Hemoglobin A1c % Lactic Acid 2.0 Calcium 7.5 L Phosphorus 2.2 L Magnesium 1.8 Total Bilirubin 0.6 D AST 12 L ALT 10 L D Alkaline Phosphatase 47 D C-Reactive Protein 0.9 H Total Protein 5.3 L Albumin 2.7 L Urine Color Urine Appearance Urine pH Ur Specific [place] Urine Protein Urine Glucose (UA) Urine Ketones Urine Blood Urine Nitrite Urine Bilirubin Urine Urobilinogen Ur Leukocyte Esterase Blood Type Antibody Screen 11/14/17 11/14/17 11/14/17 06:40 06:40 06:40 WBC 6.3 RBC 3.91 L Hgb 11.7 Hct 34.1 L MCV 87.2 MCH 29.9 MCHC 34.3 RDW 13.9 Plt Count 187 MPV 8.0 Neutrophils % 63.4 Lymphocytes % 23.9 Monocytes % 9.5 Eosinophils % 2.5 Basophils % 0.7 ESR 24 H PT with INR INR Sodium Potassium Chloride Carbon Dioxide Anion Gap BUN Creatinine Creat Clearance w eGFR POC Glucometer Random Glucose Hemoglobin A1c % 6.2 H Lactic Acid Calcium Phosphorus Magnesium Total Bilirubin AST ALT Alkaline Phosphatase C-Reactive Protein Total Protein Albumin Urine Color Urine Appearance Urine pH Ur Specific [place] Urine Protein Urine Glucose (UA) Urine Ketones Urine Blood Urine Nitrite Urine Bilirubin Urine Urobilinogen Ur Leukocyte Esterase Blood Type Antibody Screen 11/14/17 11/14/17 06:40 11:37 WBC RBC Hgb Hct MCV MCH MCHC RDW Plt Count MPV Neutrophils % Lymphocytes % Monocytes % Eosinophils % Basophils % ESR PT with INR 16.80 H INR 1.49 H Sodium Potassium Chloride Carbon Dioxide Anion Gap BUN Creatinine Creat Clearance w eGFR POC Glucometer 107 Random Glucose Hemoglobin A1c % Lactic Acid Calcium Phosphorus Magnesium Total Bilirubin AST ALT Alkaline Phosphatase C-Reactive Protein Total Protein Albumin Urine Color Urine Appearance Urine pH Ur Specific [place] Urine Protein Urine Glucose (UA) Urine Ketones Urine Blood Urine Nitrite Urine Bilirubin Urine Urobilinogen Ur Leukocyte Esterase Blood Type Antibody Screen Active Medications Generic Name Dose Route Start Last Admin Trade Name Freq PRN Reason Stop Dose Admin Aspirin 81 mg 11/14/17 10:00 11/14/17 09:58 Asa - PO 81 mg DAILY JESS Administration Atorvastatin Calcium 60 mg 11/14/17 22:00 Lipitor - PO HS JESS Carbidopa/Levodopa 1 combo 11/14/17 10:00 11/14/17 11:44 Sinemet *Cr* 50/200 - PO 1 combo DAILY JESS Administration Heparin Sodium (Porcine) 5,000 unit 11/14/17 06:00 11/14/17 13:47 Heparin - SQ 5,000 unit TID JESS Administration Potassium Phosphate 30 mm/ 510 mls @ 62.5 mls/hr 11/14/17 08:45 11/14/17 10: 01 Sodium Chloride IVPB 11/14/17 16:54 62.5 mls/hr ONCE ONE Administration Vancomycin HCl 1,000 mg/ 250 mls @ 250 mls/hr 11/14/17 14:30 Dextrose IVPB Q12H JESS Protocol Piperacillin Sod/Tazobactam 50 mls @ 100 mls/hr 11/14/17 18:00 Sod 3.375 gm/ Dextrose IVPB Q8H-IV [facility] Protocol Insulin Aspart 1 vial 11/14/17 07:00 11/14/17 11:38 Novolog Vial Sliding Scale - SQ Not Given ACHS JESS Protocol Metoprolol Succinate 25 mg 11/14/17 10:00 11/14/17 10:00 Toprol Xl - PO 25 mg DAILY JESS Administration Potassium Chloride 20 meq 11/14/17 10:00 11/14/17 09:59 K-Dur - PO 20 meq DAILY JESS Administration Tamsulosin HCl 0.4 mg 11/14/17 08:30 11/14/17 09:58 Flomax - PO 0.4 mg DAILY@0830 JESS Administration Torsemide 60 mg 11/14/17 10:00 11/14/17 09:58 Demadex - PO 60 mg DAILY JESS Administration IMAGIN11/13/17 CXR -> no acute chest pathology 11/13/17 Left foot xray -> arthritic changes, no acute fracture or destructive bony process noted. ASSESSMENT/PLAN: 82M with PMH of DM, htn, CAD, presents with swelling in dorsum of Left foot and to Left 2nd toe, admitted for Left diabetic foot. # Left diabetic foot with Left 2nd toe cellulitis - ?abscess to Left 2nd toe and /or to dorsum of Left foot - Podiatry Consult - Surgery Consult - ID (Dr. Nguyen) recs appreciated: empiric IV Vancomycin and IV Zosyn Day 2 - f/u blood and urine cultures # NIDDM - BGMs - SSI - hgba1c 6.2, suggesting DM is well controlled - hold home med of Metformin # CAD - continue home meds of ASA and Lipitor # htn - continue home meds of Toprol XL and Torsemide # hypophosphatemia - repleted with KPhos IVPB 30 mm # FEN - Fluids: po - Electrolytes: hypophosphatemia noted, continue to monitor - Nutrition: diabetic diet # Prophylaxis - DVT ppx with Heparin TID - deconditioning ppx with PT Visit type - Emergency Visit Emergency Visit: Yes ED Registration Date: 11/14/17 Care time: The patient presented to the Emergency Department on the above date and was hospitalized for further evaluation of their emergent condition. - New Patient This patient is new to me today: Yes Date on this admission: 11/14/17 - Critical Care Critical Care patient: No
[2017-11-14] MEDS: PIPERACILLIN/TAZOB 3.375 GM 3.375 GM in DEXTROSE 5%-WATER - 50 ML IVPB SCH (17:52)
[2017-11-14] MEDS: DONEPEZIL HCL 10 MG TABLET (FP) PO SCH (17:53)
[2017-11-14] MEDS ORDERED: VANCOMYCIN 1,000 MG in DEXTROSE 5%-WATER - 250 ML IVPB ONE (18:00)
[2017-11-14] MEDS ORDERED: ATORVASTATIN CA 20 MG TABLET (FP) PO SCH (22:00)
[2017-11-14] MEDS: ATORVASTATIN CA 40 MG TABLET (FP) PO SCH (22:10)
--- NOTE | 2017-11-15 00:43 | CONS ---
DATE OF CONSULTATION: DATE OF DICTATION: 11/14/2017 INFECTIOUS DISEASE CONSULTATION HISTORY OF PRESENT ILLNESS : An 82-year-old diabetic male evaluated for cellulitis of the left foot. The patient reports he had developed redness along the medial aspect of the right foot about 10 days prior to admission. 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 He was prescribed an oral antibiotic which he took for 7 days. Over the past 3 days he developed worsening erythema, warmth, and swelling of the left 2nd toe. He denies any traumatic injury to his foot. He denies prior history of serious soft tissue infection requiring hospitalization or history of MRSA. He denies any associated fever or chills. No reports of purulent drainage from the toe. PAST MEDICAL HISTORY: Positive for diabetes mellitus, hypertension, BPH, coronary artery disease, COPD, obstructive sleep apnea, congestive heart failure, osteoarthritis. PAST SURGICAL HISTORY: Status post left total knee replacement, coronary artery bypass . ALLERGIES: No known allergies. MEDICATION: Lasix, Toprol, tamsulosin, aspirin, Lipitor, Sinemet, metformin. SOCIAL HISTORY: Lives at home with his . Nonsmoker. Nondrinker. SYSTEMS REVIEW: Neurologic: No loss of consciousness, seizure activity, or focal weakness. Cardiac: Negative chest pain or palpitations. Respiratory: Negative cough or sputum production. Gastrointestinal: Negative vomiting or diarrhea. Genitourinary: Negative for urinary tract infection. LABORATORY DATA: White count 6.3, hematocrit 34.1, platelet count 187, BUN 14, creatinine 0.9, lactic acid 3.1, ESR 24, C-reactive protein 0.9. Urine leukocyte esterase negative. Chest x-ray negative for fracture or dislocation. PHYSICAL EXAMINATION: General: He is awake and alert, in no acute distress. Vital signs: Temperature 98.0, blood pressure 106/55, pulse 77 regular, respirations 20 per minute. HEENT: Sclerae anicteric. Cardiovascular: Heart sounds S1, S2. Respiratory: Lungs clear. Abdomen: Obese. Soft. Nontender. Extremities: Negative for edema. Right foot, no evidence of erythema, warmth, or swelling. Left foot, there is diffuse swelling of the left 2nd toe with a fluctuant area of the mid dorsal aspect of the toe. No expressible pus is attended to palpation. IMPRESSION: 1. Cellulitis of the left second toe. 2. Possible soft tissue abscess left second toe. 3. Diabetes mellitus. Await cultures. Obtain surgical evaluation. Empiric antibiotic coverage with vancomycin and Zosyn. Local wound care. Will follow. Thank you for the kind referral. EM KNAPP M.D. [id number]
[2017-11-15] MEDS: PIPERACILLIN/TAZOB 3.375 GM 3.375 GM in DEXTROSE 5%-WATER - 50 ML IVPB SCH ×3 (01:45→17:39)
[2017-11-15] MEDS: VANCOMYCIN 1,000 MG in DEXTROSE 5%-WATER - 250 ML IVPB SCH ×2 (02:41→14:03)
[2017-11-15] MEDS: INSULIN SLIDING SCALE (NOVOLOG) 1 VIAL SQ SCH ×4 (06:32→21:55)
[2017-11-15] MEDS: HEPARIN NA (PORCINE) 5,000 UNITS/ML 1ML VIAL SQ SCH ×3 (06:37→21:54)
--- NOTE | 2017-11-15 08:00 | CONSULT ---
Consult - text type - Consultation Consultation Note: Podiatry Consultation: Pleasant 82 year old DM M presents to ED, sent by assistant family teacher, for swelling/ redness/pain L 2nd digit. Patient states he has never had this problem before. Denies F/V/N/C/SOB/CP. Denies injury to the area. Denies any open sores, drainage to the area. Afebrile, VSS. PMHx: DM, HTN, CAD s/p CABG x 5 Meds: noted ALL: NKMA ADELFO: L foot: pedal pulses 1/4, TG wnl, CFT brisk to all toes. There is a rigid contracted 2nd hammer toe deformity with localized erythema and some fluctuance dorsal PIPJ. There is tenderness on palpation and range of motion. There is no open ulcer, no drainage, no streaking cellulitis, no signs of acute infection. Epicritic sensation grossly intact. WBC: 6.3 ESR: 23 Blood Cx: no growth L foot XR: contracture 2nd digit, no evidence of osteomyelitis; exostosis dorsal midfoot Imp: 82 year old DM M with likely L 2nd digit bursitis 1. IV abx per ID 2. Due to biomechanics of foot, often patients with contracted 2nd digit develop bursitis secondary to shoegear irritation which is likely the cause of the localized redness to the toe. If there is concern, further imaging may be warranted, i.e. MRI. Discussed with medical care team. 3. No acute intervention at this time. Thanks for the consult. Joanna Haider DPM
[2017-11-15] MEDS: TAMSULOSIN HCL 0.4 MG CAP.ER.24H (FP) PO SCH (08:15)
[2017-11-15 08:29] LABS: ANION GAP 13 (8-16); BLOOD UREA NITROGEN 9 mg/dL (7-18); CALCIUM 8.9 mg/dL (8.5-10.1); CHLORIDE 104 mmol/L (98-107); CO2 26 mmol/L (21-32); CREATININE 0.9 mg/dL (0.7-1.3); GLUCOSE,RANDOM 111 mg/dL (74-106); MAGNESIUM 2.3 mg/dL (1.8-2.4); PHOSPHOROUS 3.3 mg/dL (2.5-4.9); POTASSIUM 3.7 mmol/L (3.5-5.1); SODIUM 143 mmol/L (136-145)
[2017-11-15 08:31] LABS: HEMATOCRIT 36.8 % (35.4-49); HEMOGLOBIN 12.6 GM/dL (11.7-16.9); MCH 29.9 pg (25.7-33.7); MCHC 34.3 g/dl (32.0-35.9); MEAN PLT VOLUME 8.1 fl (7.5-11.1); PLATELET COUNT 205 K/MM3 (134-434); RBC 4.23 M/mm3 (4.00-5.60); RDW 13.9 % (11.9-15.9); WHITE BLOOD COUNT 5.4 K/mm3 (4.0-10.0)
[2017-11-15] MEDS ORDERED: PT OWN MED DRAWER 7, Y5N ONE ×2 (09:22→17:11)
--- NOTE | 2017-11-15 09:41 | PN ---
Teaching Attending Note Name of Resident: Ton Nuñez ATTENDING PHYSICIAN STATEMENT I saw and evaluated the patient. I reviewed the resident's note and discussed the case with the resident. I agree with the resident's findings and plan as documented. SUBJECTIVE: Patient seen and examined, left foot pain with some improvement, no fevers/ chills or new concerns. OBJECTIVE: Vital Signs Period Temp Pulse Resp BP Sys/Franco Pulse Ox Last 24 Hr 97.7 F-98.4 F 70-80 20-20 115-131/58-70 98 Intake & Output 11/12/17 11/13/17 11/14/17 11/15/17 23:59 23:59 23:59 23:59 Intake Total 2300 1000 Output Total 300 250 Balance 2000 750 Weight 237 lb 243 lb 8 oz 238 lb 5 oz General: sitting in bed in no acute distress Extremities: left foot dorsum swelling with improved tenderness, left second toe with improved erythema, persistent swelling Home Medication List Medication Instructions Recorded Confirmed Type Metoprolol Succinate [Toprol Xl -] 25 mg PO DAILY 12/28/14 11/13/17 History Potassium Chloride 20 meq PO DAILY 12/28/14 11/13/17 History Tamsulosin HCl 0.4 mg PO DAILY 12/28/14 11/13/17 History Aspirin 81 mg PO DAILY 11/13/17 11/13/17 History Atorvastatin Ca [Lipitor] 40 mg PO DAILY 11/13/17 11/14/17 History Carbidopa/Levodopa *Cr* 50/200 1 tab PO TID 11/13/17 11/14/17 History [Sinemet *Cr* 50/200 -] Metformin HCl 500 mg PO TID 11/13/17 11/13/17 History Torsemide 20 mg PO DAILY 11/13/17 11/14/17 History Donepezil HCl [Aricept] 10 mg PO DAILY 11/14/17 11/14/17 History Active Medications Generic Name Dose Route Start Last Admin Trade Name Freq PRN Reason Stop Dose Admin Acetaminophen 650 mg 11/14/17 17:12 Tylenol - PO Q4H PRN PAIN LEVEL 6-10 Aspirin 81 mg 11/14/17 10:00 11/14/17 09:58 Asa - PO 81 mg DAILY JESS Administration Atorvastatin Calcium 40 mg 11/14/17 22:00 11/14/17 22:10 Lipitor - PO 40 mg HS JESS Administration Carbidopa/Levodopa 1 combo 11/14/17 22:00 11/15/17 06:37 Sinemet *Cr* 50/200 - PO 1 combo TID JESS Administration Donepezil HCl 10 mg 11/14/17 15:45 11/14/17 17:53 Aricept - PO 10 mg DAILY JESS Administration Heparin Sodium (Porcine) 5,000 unit 11/14/17 06:00 11/15/17 06:37 Heparin - SQ 5,000 unit TID JESS Administration Vancomycin HCl 1,000 mg/ 250 mls @ 250 mls/hr 11/14/17 14:30 11/15/17 02:41 Dextrose IVPB 250 mls/hr Q12H JESS Administration Protocol Piperacillin Sod/Tazobactam 50 mls @ 100 mls/hr 11/14/17 18:00 11/15/17 01:45 Sod 3.375 gm/ Dextrose IVPB 100 mls/hr Q8H-IV JESS Administration Protocol Insulin Aspart 1 vial 11/14/17 07:00 11/15/17 06:32 Novolog Vial Sliding Scale - SQ Not Given ACHS [facility] Protocol Metoprolol Succinate 25 mg 11/14/17 10:00 11/14/17 10:00 Toprol Xl - PO 25 mg DAILY JESS Administration Potassium Chloride 20 meq 11/14/17 10:00 11/14/17 09:59 K-Dur - PO 20 meq DAILY JESS Administration Tamsulosin HCl 0.4 mg 11/14/17 08:30 11/15/17 08:15 Flomax - PO 0.4 mg DAILY@0830 JESS Administration Torsemide 20 mg 11/14/17 15:34 Demadex - PO DAILY [facility] Laboratory Results - last 24 hr 11/14/17 11/14/17 11/14/17 06:40 06:40 11:37 WBC RBC Hgb Hct MCV MCH MCHC RDW Plt Count MPV Sodium Potassium Chloride Carbon Dioxide Anion Gap BUN Creatinine POC Glucometer 107 Random Glucose Hemoglobin A1c % 6.2 H Uric Acid Calcium Phosphorus Magnesium C-Reactive Protein 0.9 H 11/14/17 11/14/17 11/15/17 17:16 22:09 06:31 WBC RBC Hgb Hct MCV MCH MCHC RDW Plt Count MPV Sodium Potassium Chloride Carbon Dioxide Anion Gap BUN Creatinine POC Glucometer 125 110 115 Random Glucose Hemoglobin A1c % Uric Acid Calcium Phosphorus Magnesium C-Reactive Protein 11/15/17 11/15/17 07:00 07:00 WBC 5.4 RBC 4.23 Hgb 12.6 Hct 36.8 MCV 87.0 MCH 29.9 MCHC 34.3 RDW 13.9 Plt Count 205 MPV 8.1 Sodium 143 Potassium 3.7 Chloride 104 Carbon Dioxide 26 Anion Gap 13 BUN 9 D Creatinine 0.9 POC Glucometer Random Glucose 111 H D Hemoglobin A1c % Uric Acid 6.0 Calcium 8.9 Phosphorus 3.3 D Magnesium 2.3 D C-Reactive Protein Microbiology 11/13/17 21:30 Urine - Urine Clean Catch Urine Culture - Final 11/13/17 15:45 Blood - Peripheral Venous Blood Culture - Preliminary NO GROWTH OBTAINED AFTER 24 HOURS, INCUBATION TO CONTINUE FOR 4 DAYS. 11/13/17 15:45 Blood - Peripheral Venous Blood Culture - Preliminary NO GROWTH OBTAINED AFTER 24 HOURS, INCUBATION TO CONTINUE FOR 4 DAYS. ASSESSMENT AND PLAN: 82 yom with HTN, DM, CAD s/p CABG/5 stents, ?CHF admitted with left diabetic foot -Left diabetic foot with left second toe cellulitis+/- abscess and ?abscess of dorsum left foot -Lactic acidosis, resolved -CAD s/p CABG/PCI, ?CHF -HTN -NIDDM Plan: Zosyn/vancomycin. ID input appreciated. Discussed with Dr. Haider, so plans for surgical intervention now. Left dorsum symptoms suspects from bony spur. Follow up MRI. Hold off additional IVF for now. lactic acidosis resolved. Torsemide, K, phos supplementation. Hold metformin, ISS, diabetic diet. Continue ASA/statin/metoprolol. DVTPPx dispo pending surgical plans and antibiotic needs. Plan discussed with patient in detail, all questions answered.
[2017-11-15] MEDS: TORSEMIDE 20 MG TABLET (FP) PO SCH (09:44)
[2017-11-15] MEDS: POTASSIUM CHLORIDE TABS 20 MEQ TABLET.ER (FP) PO SCH (09:44)
[2017-11-15] MEDS: DONEPEZIL HCL 10 MG TABLET (FP) PO SCH (09:44)
[2017-11-15] MEDS: metoPROLOL SUCCINATE 25 MG TAB.SR.24H (FP) PO SCH (09:44)
[2017-11-15] MEDS: ASPIRIN 81 MG CHEWABLE TABLETS PO SCH (09:44)
--- NOTE | 2017-11-15 10:48 | PN ---
Physical Exam: SUBJECTIVE: Patient seen and examined still complains of pain in his foot. states nothing change since yesterday OBJECTIVE: Vital Signs Period Temp Pulse Resp BP Sys/Franco Pulse Ox Last 24 Hr 97.7 F-98.4 F 70-80 20-20 115-131/58-70 98 GENERAL: The patient is awake, alert, and fully oriented, in no acute distress. LUNGS: Breath sounds equal, clear to auscultation bilaterally, no wheezes, no crackles, no accessory muscle use. HEART: Regular rate and rhythm, S1, S2 without murmur, rub or gallop. ABDOMEN: Soft, nontender, nondistended, normoactive bowel sounds, no guarding. EXTREMITIES: 1+ nelli pulses, warm, well-perfused, no edema. Left 2nd toe erythematous. Dorsum of Left foot quite tender to palpation. PSYCH: Normal mood, normal affect Laboratory Results - last 24 hr 11/14/17 11/14/17 11/14/17 06:40 11:37 17:16 WBC RBC Hgb Hct MCV MCH MCHC RDW Plt Count MPV Sodium Potassium Chloride Carbon Dioxide Anion Gap BUN Creatinine POC Glucometer 107 125 Random Glucose Uric Acid Calcium Phosphorus Magnesium C-Reactive Protein 0.9 H 11/14/17 11/15/17 11/15/17 22:09 06:31 07:00 WBC 5.4 RBC 4.23 Hgb 12.6 Hct 36.8 MCV 87.0 MCH 29.9 MCHC 34.3 RDW 13.9 Plt Count 205 MPV 8.1 Sodium Potassium Chloride Carbon Dioxide Anion Gap BUN Creatinine POC Glucometer 110 115 Random Glucose Uric Acid Calcium Phosphorus Magnesium C-Reactive Protein 11/15/17 07:00 WBC RBC Hgb Hct MCV MCH MCHC RDW Plt Count MPV Sodium 143 Potassium 3.7 Chloride 104 Carbon Dioxide 26 Anion Gap 13 BUN 9 D Creatinine 0.9 POC Glucometer Random Glucose 111 H D Uric Acid 6.0 Calcium 8.9 Phosphorus 3.3 D Magnesium 2.3 D C-Reactive Protein Active Medications Generic Name Dose Route Start Last Admin Trade Name Freq PRN Reason Stop Dose Admin Acetaminophen 650 mg 11/14/17 17:12 Tylenol - PO Q4H PRN PAIN LEVEL 6-10 Aspirin 81 mg 11/14/17 10:00 11/15/17 09:44 Asa - PO 81 mg DAILY JESS Administration Atorvastatin Calcium 40 mg 03/02/18 22:00 11/14/17 22:10 Lipitor - PO 40 mg HS JESS Administration Carbidopa/Levodopa 1 combo 11/14/17 22:00 11/15/17 06:37 Sinemet *Cr* 50/200 - PO 1 combo TID JESS Administration Donepezil HCl 10 mg 11/14/17 15:45 11/15/17 09:44 Aricept - PO 10 mg DAILY JESS Administration Heparin Sodium (Porcine) 5,000 unit 11/14/17 06:00 11/15/17 06:37 Heparin - SQ 5,000 unit TID JESS Administration Vancomycin HCl 1,000 mg/ 250 mls @ 250 mls/hr 11/14/17 14:30 11/15/17 02:41 Dextrose IVPB 250 mls/hr Q12H JESS Administration Protocol Piperacillin Sod/Tazobactam 50 mls @ 100 mls/hr 11/14/17 18:00 11/15/17 09:44 Sod 3.375 gm/ Dextrose IVPB 100 mls/hr Q8H-IV JESS Administration Protocol Insulin Aspart 1 vial 11/14/17 07:00 11/15/17 06:32 Novolog Vial Sliding Scale - SQ Not Given ACHS JESS Protocol Metoprolol Succinate 25 mg 11/14/17 10:00 11/15/17 09:44 Toprol Xl - PO 25 mg DAILY JESS Administration Potassium Chloride 20 meq 11/14/17 10:00 11/15/17 09:44 K-Dur - PO 20 meq DAILY JESS Administration Tamsulosin HCl 0.4 mg 11/14/17 08:30 11/15/17 08:15 Flomax - PO 0.4 mg DAILY@0830 JESS Administration Torsemide 20 mg 11/14/17 15:34 11/15/17 09:44 Demadex - PO 20 mg DAILY JESS Administration ASSESSMENT/PLAN: 82M with PMH of DM, htn, CAD, presents with swelling in dorsum of Left foot and to Left 2nd toe, admitted for Left diabetic foot. # Left diabetic foot with Left 2nd toe cellulitis - continue antibiotics as per ID Podiatry consult appreciated: pain and erythema can be due to bursitis and on dorsum of foot is bony spur MRI pending. # NIDDM - BGMs - hgba1c 6.2, - on insulin sliding scale. - metformin on hold. # CAD - continue home meds of ASA and Lipitor # htn - continue home meds of Toprol XL and Torsemide # hypophosphatemia - improved phos 3.3 # FEN - Fluids: po - Electrolytes: repeat tomorrow - Nutrition: diabetic diet # Prophylaxis - DVT ppx with Heparin TID dispo : med surg Visit type - Emergency Visit Emergency Visit: Yes ED Registration Date: 11/14/17 Care time: The patient presented to the Emergency Department on the above date and was hospitalized for further evaluation of their emergent condition. - New Patient This patient is new to me today: No - Critical Care Critical Care patient: No
[2017-11-15] MEDS: ACETAMINOPHEN 325 MG TABLET (FP) PO PRN ×2 (14:06→22:33)
[2017-11-15] MEDS: ATORVASTATIN CA 40 MG TABLET (FP) PO SCH (21:54)
[2017-11-16] MEDS: PIPERACILLIN/TAZOB 3.375 GM 3.375 GM in DEXTROSE 5%-WATER - 50 ML IVPB SCH ×3 (01:35→17:03)
[2017-11-16] MEDS ORDERED: PT OWN MED DRAWER 7, Y5N ONE ×3 (02:31→21:16)
[2017-11-16] MEDS: VANCOMYCIN 1,000 MG in DEXTROSE 5%-WATER - 250 ML IVPB SCH ×2 (02:35→16:01)
[2017-11-16] MEDS: INSULIN SLIDING SCALE (NOVOLOG) 1 VIAL SQ SCH ×4 (06:11→21:22)
[2017-11-16] MEDS: HEPARIN NA (PORCINE) 5,000 UNITS/ML 1ML VIAL SQ SCH ×3 (06:11→21:21)
[2017-11-16] MEDS: TAMSULOSIN HCL 0.4 MG CAP.ER.24H (FP) PO SCH (08:03)
[2017-11-16] MEDS: ASPIRIN 81 MG CHEWABLE TABLETS PO SCH (09:20)
[2017-11-16] MEDS: TORSEMIDE 20 MG TABLET (FP) PO SCH (09:20)
[2017-11-16] MEDS: metoPROLOL SUCCINATE 25 MG TAB.SR.24H (FP) PO SCH (09:20)
[2017-11-16] MEDS: DONEPEZIL HCL 10 MG TABLET (FP) PO SCH (09:20)
[2017-11-16] MEDS: POTASSIUM CHLORIDE TABS 20 MEQ TABLET.ER (FP) PO SCH (09:20)
--- NOTE | 2017-11-16 13:45 | PN ---
Progress Note, Physician History of Present Illness: C/O pain L great toe No c/o pain L 2nd toe No fever/ chills MRI done , results pending - Current Medication List Current Medications: Active Medications Acetaminophen (Tylenol -) 650 mg PO Q4H PRN PRN Reason: PAIN LEVEL 6-10 Last Admin: 11/15/17 22:33 Dose: 650 mg Aspirin (Asa -) 81 mg PO DAILY [facility] Last Admin: 11/16/17 09:20 Dose: 81 mg Atorvastatin Calcium (Lipitor -) 40 mg PO HS [facility] Last Admin: 11/15/17 21:54 Dose: 40 mg Carbidopa/Levodopa (Sinemet *Cr* 50/200 -) 1 combo PO TID [facility] Last Admin: 11/16/17 06:11 Dose: 1 combo Donepezil HCl (Aricept -) 10 mg PO DAILY [facility] Last Admin: 11/16/17 09:20 Dose: 10 mg Heparin Sodium (Porcine) (Heparin -) 5,000 unit SQ TID [facility] Last Admin: 11/16/17 06:11 Dose: 5,000 unit Vancomycin HCl 1,000 mg/ (Dextrose) 250 mls @ 250 mls/hr IVPB Q12H JESS PRN Reason: Protocol Last Admin: 11/16/17 02:35 Dose: 250 mls/hr Piperacillin Sod/Tazobactam (Sod 3.375 gm/ Dextrose) 50 mls @ 100 mls/hr IVPB Q8H-IV JESS PRN Reason: Protocol Last Admin: 11/16/17 09:20 Dose: 100 mls/hr Insulin Aspart (Novolog Vial Sliding Scale -) 1 vial SQ ACHS JESS PRN Reason: Protocol Last Admin: 11/16/17 10:47 Dose: Not Given Metoprolol Succinate (Toprol Xl -) 25 mg PO DAILY [facility] Last Admin: 11/16/17 09:20 Dose: 25 mg Potassium Chloride (K-Dur -) 20 meq PO DAILY [facility] Last Admin: 11/16/17 09:20 Dose: 20 meq Tamsulosin HCl (Flomax -) 0.4 mg PO DAILY@0830 [facility] Last Admin: 11/16/17 08:03 Dose: 0.4 mg Torsemide (Demadex -) 20 mg PO DAILY [facility] Last Admin: 11/16/17 09:20 Dose: 20 mg - Objective Vital Signs: Vital Signs Temperature 98 F 11/16/17 08:50 Pulse Rate 86 11/16/17 08:50 Respiratory Rate 19 11/16/17 08:50 Blood Pressure 107/59 11/16/17 08:50 O2 Sat by Pulse Oximetry (%) 96 11/16/17 08:50 Constitutional: Yes: No Distress Eyes: Yes: Conjunctiva Clear Cardiovascular: Yes: Regular Rate and Rhythm, S1, S2 Respiratory: Yes: CTA Bilaterally Gastrointestinal: Yes: Normal Bowel Sounds, Soft. No: Tenderness Extremities: Yes: Other (decreased swelling/ erythema L 2nd toe. Small area erythema L 1st MTH) Labs: CBC, BMP 11/15/17 07:00 11/15/17 07:00 INR, PTT INR 1.49 (0.82-1.09) H 11/14/17 06:40 Assessment/Plan Cellulitis L 2nd toe- improved ? Gouty arthritis Diabetes mellitus Await MRI report Continue vanco/ zosyn Check uric acid
--- NOTE | 2017-11-16 15:29 | PN ---
Teaching Attending Note Name of Resident: Zandra Mendiola Time of evaluation: 9:30 AM SUBJECTIVE: Patient seen and examined, left foot symptoms with some improvement, still with pain. no new complaints. OBJECTIVE: Vital Signs Period Temp Pulse Resp BP Sys/Franco Pulse Ox Last 24 Hr 97.8 F-98.8 F 55-86 19-21 107-115/55-70 96-97 Intake & Output 11/13/17 11/14/17 11/15/17 11/16/17 23:59 23:59 23:59 23:59 Intake Total 2300 1000 800 300 Output Total 300 250 Balance 2000 750 800 300 Weight 237 lb 243 lb 8 oz 238 lb 5 oz 234 lb general: sitting in bed in no acute distress Extremities: left second toe persistent swelling with tenderness but resolved erythema, tenderness overal swelling/bony spur dorsum left foot but improved swelling, no overlying erythema noted Abdomen: soft, obese,NT chest: no rales or wheezing Home Medication List Medication Instructions Recorded Confirmed Type Metoprolol Succinate [Toprol Xl -] 25 mg PO DAILY 12/28/14 11/13/17 History Potassium Chloride 20 meq PO DAILY 12/28/14 11/13/17 History Tamsulosin HCl 0.4 mg PO DAILY 12/28/14 11/13/17 History Aspirin 81 mg PO DAILY 11/13/17 11/13/17 History Atorvastatin Ca [Lipitor] 40 mg PO DAILY 11/13/17 11/14/17 History Carbidopa/Levodopa *Cr* 50/200 1 tab PO TID 11/13/17 11/14/17 History [Sinemet *Cr* 50/200 -] Metformin HCl 500 mg PO TID 11/13/17 11/13/17 History Torsemide 20 mg PO DAILY 11/13/17 11/14/17 History Donepezil HCl [Aricept] 10 mg PO DAILY 11/14/17 11/14/17 History Active Medications Generic Name Dose Route Start Last Admin Trade Name Freq PRN Reason Stop Dose Admin Acetaminophen 650 mg 11/14/17 17:12 11/15/17 22:33 Tylenol - PO 650 mg Q4H PRN Administration PAIN LEVEL 6-10 Aspirin 81 mg 11/14/17 10:00 11/16/17 09:20 Asa - PO 81 mg DAILY JESS Administration Atorvastatin Calcium 40 mg 11/14/17 22:00 11/15/17 21:54 Lipitor - PO 40 mg HS JESS Administration Carbidopa/Levodopa 1 combo 11/14/17 22:00 11/16/17 13:56 Sinemet *Cr* 50/200 - PO 1 combo TID JESS Administration Donepezil HCl 10 mg 11/14/17 15:45 11/16/17 09:20 Aricept - PO 10 mg DAILY JESS Administration Heparin Sodium (Porcine) 5,000 unit 11/14/17 06:00 11/16/17 13:56 Heparin - SQ 5,000 unit TID JESS Administration Vancomycin HCl 1,000 mg/ 250 mls @ 250 mls/hr 11/14/17 14:30 11/16/17 02:35 Dextrose IVPB 250 mls/hr Q12H JESS Administration Protocol Piperacillin Sod/Tazobactam 50 mls @ 100 mls/hr 11/14/17 18:00 11/16/17 09:20 Sod 3.375 gm/ Dextrose IVPB 100 mls/hr Q8H-IV JESS Administration Protocol Insulin Aspart 1 vial 11/14/17 07:00 11/16/17 10:47 Novolog Vial Sliding Scale - SQ Not Given ACHS JESS Protocol Metoprolol Succinate 25 mg 11/14/17 10:00 11/16/17 09:20 Toprol Xl - PO 25 mg DAILY JESS Administration Potassium Chloride 20 meq 11/14/17 10:00 11/16/17 09:20 K-Dur - PO 20 meq DAILY JESS Administration Tamsulosin HCl 0.4 mg 11/14/17 08:30 11/16/17 08:03 Flomax - PO 0.4 mg DAILY@0830 JESS Administration Torsemide 20 mg 11/14/17 15:34 11/16/17 09:20 Demadex - PO 20 mg DAILY JESS Administration Laboratory Results - last 24 hr 11/15/17 11/15/17 11/16/17 16:54 21:53 06:10 POC Glucometer 153 108 103 11/16/17 10:46 POC Glucometer 136 Microbiology 11/13/17 15:45 Blood - Peripheral Venous Blood Culture - Preliminary NO GROWTH OBTAINED AFTER 48 HOURS, INCUBATION TO CONTINUE FOR 3 DAYS. 11/13/17 15:45 Blood - Peripheral Venous Blood Culture - Preliminary NO GROWTH OBTAINED AFTER 48 HOURS, INCUBATION TO CONTINUE FOR 3 DAYS. 11/13/17 21:30 Urine - Urine Clean Catch Urine Culture - Final ASSESSMENT AND PLAN: 82 yom with HTN, DM, CAD s/p CABG/5 stents, ?CHF admitted with left diabetic foot -Left diabetic foot with left second toe cellulitis+/- abscess and ?abscess of dorsum left foot -Lactic acidosis, resolved -CAD s/p CABG/PCI, ?CHF -HTN -NIDDM Plan: Zosyn/vancomycin. ID input appreciated. Monitor vanco levels, Check uric acid Discussed with Dr. Haider, so plans for surgical intervention now. Left dorsum symptoms suspects from bony spur. Follow up MRI foot results. Hold off additional IVF for now. lactic acidosis resolved. Torsemide, K, phos supplementation. Hold metformin, ISS, diabetic diet. Continue ASA/statin/metoprolol. DVTPPx dispo pending surgical plans and antibiotic needs. Plan discussed with patient in detail, all questions answered.
[2017-11-16] MEDS: ACETAMINOPHEN 325 MG TABLET (FP) PO PRN (18:38)
[2017-11-16] MEDS: ATORVASTATIN CA 40 MG TABLET (FP) PO SCH (21:21)
[2017-11-17] MEDS ORDERED: PT OWN MED DRAWER 7, Y5N ONE ×4 (01:01→18:06)
[2017-11-17] MEDS: PIPERACILLIN/TAZOB 3.375 GM 3.375 GM in DEXTROSE 5%-WATER - 50 ML IVPB SCH ×3 (01:31→18:18)
[2017-11-17] MEDS: VANCOMYCIN 1,000 MG in DEXTROSE 5%-WATER - 250 ML IVPB SCH ×2 (02:07→15:27)
[2017-11-17] MEDS: HEPARIN NA (PORCINE) 5,000 UNITS/ML 1ML VIAL SQ SCH ×3 (06:13→21:42)
[2017-11-17] MEDS: INSULIN SLIDING SCALE (NOVOLOG) 1 VIAL SQ SCH ×4 (06:14→21:20)
[2017-11-17] MEDS: ACETAMINOPHEN 325 MG TABLET (FP) PO PRN ×2 (06:14→14:30)
[2017-11-17 07:28] LABS: BASO % 0.7 % (0-2.0); EOS % 3.5 % (0-4.5); HEMATOCRIT 37.7 % (35.4-49); HEMOGLOBIN 12.9 GM/dL (11.7-16.9); LYMPH % 25.8 % (8-40); MCH 29.8 pg (25.7-33.7); MCHC 34.1 g/dl (32.0-35.9); MEAN CELL VOLUME 87.2 fl (80-96); MEAN PLT VOLUME 8.5 fl (7.5-11.1); MONO % 10.4 % (3.8-10.2); NEUT % 59.6 % (42.8-82.8); PLATELET COUNT 204 K/MM3 (134-434); RBC 4.32 M/mm3 (4.00-5.60); RDW 13.8 % (11.9-15.9)
[2017-11-17 07:43] LABS: CHLORIDE 105 mmol/L (98-107); POTASSIUM 3.8 mmol/L (3.5-5.1); SODIUM 139 mmol/L (136-145)
[2017-11-17 07:48] LABS: ANION GAP 6 (8-16); BLOOD UREA NITROGEN 11 mg/dL (7-18); CALCIUM 8.1 mg/dL (8.5-10.1); CO2 28 mmol/L (21-32); GLUCOSE,RANDOM 92 mg/dL (74-106); MAGNESIUM 2.3 mg/dL (1.8-2.4); URIC ACID 4.9 mg/dL (2.6-7.2)
[2017-11-17] MEDS: TAMSULOSIN HCL 0.4 MG CAP.ER.24H (FP) PO SCH (09:46)
[2017-11-17] MEDS: DONEPEZIL HCL 10 MG TABLET (FP) PO SCH (09:47)
[2017-11-17] MEDS: metoPROLOL SUCCINATE 25 MG TAB.SR.24H (FP) PO SCH (09:47)
[2017-11-17] MEDS: TORSEMIDE 20 MG TABLET (FP) PO SCH (09:47)
[2017-11-17] MEDS: ASPIRIN 81 MG CHEWABLE TABLETS PO SCH (09:47)
[2017-11-17] MEDS: POTASSIUM CHLORIDE TABS 20 MEQ TABLET.ER (FP) PO SCH (09:47)
--- NOTE | 2017-11-17 14:36 | PN ---
Teaching Attending Note Name of Resident: Lorene Larson ATTENDING PHYSICIAN STATEMENT Time of evaluation: 10:20 AM I saw and evaluated the patient. I reviewed the resident's note and discussed the case with the resident. I agree with the resident's findings and plan as documented. SUBJECTIVE: Patient seen and examined. left foot symptoms overall unchanged, no fevers or chills. OBJECTIVE: Vital Signs Period Temp Pulse Resp BP Sys/Franco Pulse Ox Last 24 Hr 98.1 F-98.5 F 74-95 18-21 106-125/56-59 95-96 Intake & Output 11/14/17 11/15/17 11/16/17 11/17/17 23:59 23:59 23:59 23:59 Intake Total 0355 089 0881 875 Output Total 250 Balance 476 784 2303 875 Weight 243 lb 8 oz 238 lb 5 oz 234 lb 235 lb 12.8 oz general; ambulating in room in no acute distress Extremities: left second toe swelling with tenderness unchanged, improved erythema, left foot dorsum swelling less focal but with more generalized swelling over dorsum, pos DP pulses LLE Home Medication List Medication Instructions Recorded Confirmed Type Metoprolol Succinate [Toprol Xl -] 25 mg PO DAILY 12/28/14 11/13/17 History Potassium Chloride 20 meq PO DAILY 12/28/14 11/13/17 History Tamsulosin HCl 0.4 mg PO DAILY 12/28/14 11/13/17 History Aspirin 81 mg PO DAILY 11/13/17 11/13/17 History Atorvastatin Ca [Lipitor] 40 mg PO DAILY 11/13/17 11/14/17 History Carbidopa/Levodopa *Cr* 50/200 1 tab PO TID 11/13/17 11/14/17 History [Sinemet *Cr* 50/200 -] Metformin HCl 500 mg PO TID 11/13/17 11/13/17 History Torsemide 20 mg PO DAILY 11/13/17 11/14/17 History Donepezil HCl [Aricept] 10 mg PO DAILY 11/14/17 11/14/17 History Active Medications Generic Name Dose Route Start Last Admin Trade Name Freq PRN Reason Stop Dose Admin Acetaminophen 650 mg 11/14/17 17:12 11/17/17 14:30 Tylenol - PO 650 mg Q4H PRN Administration PAIN LEVEL 6-10 Aspirin 81 mg 11/14/17 10:00 11/17/17 09:47 Asa - PO 81 mg DAILY JESS Administration Atorvastatin Calcium 40 mg 11/14/17 22:00 11/16/17 21:21 Lipitor - PO 40 mg HS JESS Administration Carbidopa/Levodopa 1 combo 11/14/17 22:00 11/17/17 14:31 Sinemet *Cr* 50/200 - PO 1 combo TID JESS Administration Donepezil HCl 10 mg 11/14/17 15:45 11/17/17 09:47 Aricept - PO 10 mg DAILY JESS Administration Heparin Sodium (Porcine) 5,000 unit 11/14/17 06:00 11/17/17 14:30 Heparin - SQ 5,000 unit TID JESS Administration Vancomycin HCl 1,000 mg/ 250 mls @ 250 mls/hr 11/14/17 14:30 11/17/17 02:07 Dextrose IVPB 250 mls/hr Q12H JESS Administration Protocol Piperacillin Sod/Tazobactam 50 mls @ 100 mls/hr 11/14/17 18:00 11/17/17 09:47 Sod 3.375 gm/ Dextrose IVPB 100 mls/hr Q8H-IV JESS Administration Protocol Insulin Aspart 1 vial 11/14/17 07:00 11/17/17 11:49 Novolog Vial Sliding Scale - SQ Not Given ACHS JESS Protocol Metoprolol Succinate 25 mg 11/14/17 10:00 11/17/17 09:47 Toprol Xl - PO 25 mg DAILY JESS Administration Potassium Chloride 20 meq 11/14/17 10:00 11/17/17 09:47 K-Dur - PO 20 meq DAILY JESS Administration Tamsulosin HCl 0.4 mg 11/14/17 08:30 11/17/17 09:46 Flomax - PO 0.4 mg DAILY@0830 JESS Administration Torsemide 20 mg 11/14/17 15:34 11/17/17 09:47 Demadex - PO 20 mg DAILY JESS Administration Laboratory Results - last 24 hr 11/16/17 11/16/17 11/16/17 15:00 16:41 21:21 WBC RBC Hgb Hct MCV MCH MCHC RDW Plt Count MPV Neutrophils % Lymphocytes % Monocytes % Eosinophils % Basophils % Sodium Potassium Chloride Carbon Dioxide Anion Gap BUN Creatinine POC Glucometer 116 94 Random Glucose Uric Acid Calcium Phosphorus Magnesium Vancomycin Pre-Dose 15.5 H* 11/17/17 11/17/17 11/17/17 06:13 06:35 06:35 WBC 6.0 RBC 4.32 Hgb 12.9 Hct 37.7 MCV 87.2 MCH 29.8 MCHC 34.1 RDW 13.8 Plt Count 204 MPV 8.5 Neutrophils % 59.6 Lymphocytes % 25.8 Monocytes % 10.4 H Eosinophils % 3.5 Basophils % 0.7 Sodium 139 Potassium 3.8 Chloride 105 Carbon Dioxide 28 Anion Gap 6 L BUN 11 D Creatinine 1.0 POC Glucometer 89 Random Glucose 92 Uric Acid 4.9 Calcium 8.1 L Phosphorus 3.0 Magnesium 2.3 Vancomycin Pre-Dose 11/17/17 11:49 WBC RBC Hgb Hct MCV MCH MCHC RDW Plt Count MPV Neutrophils % Lymphocytes % Monocytes % Eosinophils % Basophils % Sodium Potassium Chloride Carbon Dioxide Anion Gap BUN Creatinine POC Glucometer 123 Random Glucose Uric Acid Calcium Phosphorus Magnesium Vancomycin Pre-Dose Microbiology 11/13/17 15:45 Blood - Peripheral Venous Blood Culture - Preliminary NO GROWTH OBTAINED AFTER 72 HOURS, INCUBATION TO CONTINUE FOR 2 DAYS. 11/13/17 15:45 Blood - Peripheral Venous Blood Culture - Preliminary NO GROWTH OBTAINED AFTER 72 HOURS, INCUBATION TO CONTINUE FOR 2 DAYS. 11/13/17 21:30 Urine - Urine Clean Catch Urine Culture - Final ASSESSMENT AND PLAN: 82 yom with HTN, DM, CAD s/p CABG/5 stents, ?CHF admitted with left diabetic foot -Left diabetic foot with left second toe cellulitis+/- abscess and ?abscess of dorsum left foot -Lactic acidosis, resolved -CAD s/p CABG/PCI, ?CHF -HTN -NIDDM Plan: Zosyn/vancomycin day 4. ID input appreciated. Monitor vanco levels, uric acid normal. Left dorsum symptoms suspected from bony spur. MRI foot suspicious for early osteomyelitis. Follow up with ID/podiatry. Hold off additional IVF for now. lactic acidosis resolved. Torsemide, K, phos supplementation. Hold metformin, ISS, diabetic diet. Continue ASA/statin/metoprolol. DVTPPx dispo pending surgical plans and antibiotic needs. Plan discussed with patient in detail, all questions answered.
--- NOTE | 2017-11-17 17:08 | PN ---
Physical Exam: SUBJECTIVE: Patient seen and examined. Pt c/o pain to dorsum of Left foot. Otherwise, pt has no c/o. Pt denies chest pain, sob, abdominal pain, fever, chills, nausea, vomiting, constipation, diarrhea. OBJECTIVE: Vital Signs Period Temp Pulse Resp BP Sys/Franco Pulse Ox Last 24 Hr 98.1 F-98.5 F 74-95 18-21 106-125/56-59 95-96 GENERAL: The patient is awake, alert, and fully oriented, in no acute distress. LUNGS: Breath sounds equal, clear to auscultation bilaterally, no wheezes, no crackles, no accessory muscle use. HEART: Regular rate and rhythm, S1, S2 without murmur, rub or gallop. ABDOMEN: Soft, nontender, nondistended, normoactive bowel sounds, no guarding. EXTREMITIES: 1+ nelli pulses, warm, well-perfused, no edema. Left 2nd toe erythema improved, but swelling still present at Proximal Interphalangeal joint. Dorsum of Left foot quite tender to palpation with diffuse edema over dorsum. PSYCH: Normal mood, normal affect. Laboratory Results - last 24 hr 11/16/17 11/16/17 11/17/17 16:41 21:21 06:13 WBC RBC Hgb Hct MCV MCH MCHC RDW Plt Count MPV Neutrophils % Lymphocytes % Monocytes % Eosinophils % Basophils % Sodium Potassium Chloride Carbon Dioxide Anion Gap BUN Creatinine POC Glucometer 116 94 89 Random Glucose Uric Acid Calcium Phosphorus Magnesium 11/17/17 11/17/17 11/17/17 06:35 06:35 11:49 WBC 6.0 RBC 4.32 Hgb 12.9 Hct 37.7 MCV 87.2 MCH 29.8 MCHC 34.1 RDW 13.8 Plt Count 204 MPV 8.5 Neutrophils % 59.6 Lymphocytes % 25.8 Monocytes % 10.4 H Eosinophils % 3.5 Basophils % 0.7 Sodium 139 Potassium 3.8 Chloride 105 Carbon Dioxide 28 Anion Gap 6 L BUN 11 D Creatinine 1.0 POC Glucometer 123 Random Glucose 92 Uric Acid 4.9 Calcium 8.1 L Phosphorus 3.0 Magnesium 2.3 Active Medications Generic Name Dose Route Start Last Admin Trade Name Freq PRN Reason Stop Dose Admin Acetaminophen 650 mg 11/14/17 17:12 11/17/17 14:30 Tylenol - PO 650 mg Q4H PRN Administration PAIN LEVEL 6-10 Aspirin 81 mg 11/14/17 10:00 11/17/17 09:47 Asa - PO 81 mg DAILY JESS Administration Atorvastatin Calcium 40 mg 11/14/17 22:00 11/16/17 21:21 Lipitor - PO 40 mg HS JESS Administration Carbidopa/Levodopa 1 combo 11/14/17 22:00 11/17/17 14:31 Sinemet *Cr* 50/200 - PO 1 combo TID JESS Administration Donepezil HCl 10 mg 11/14/17 15:45 11/17/17 09:47 Aricept - PO 10 mg DAILY JESS Administration Heparin Sodium (Porcine) 5,000 unit 11/14/17 06:00 11/17/17 14:30 Heparin - SQ 5,000 unit TID JESS Administration Vancomycin HCl 1,000 mg/ 250 mls @ 250 mls/hr 11/14/17 14:30 11/17/17 15:27 Dextrose IVPB 250 mls/hr Q12H JESS Administration Protocol Piperacillin Sod/Tazobactam 50 mls @ 100 mls/hr 11/14/17 18:00 11/17/17 09:47 Sod 3.375 gm/ Dextrose IVPB 100 mls/hr Q8H-IV JESS Administration Protocol Insulin Aspart 1 vial 11/14/17 07:00 11/17/17 11:49 Novolog Vial Sliding Scale - SQ Not Given ACHS JESS Protocol Metoprolol Succinate 25 mg 11/14/17 10:00 11/17/17 09:47 Toprol Xl - PO 25 mg DAILY JESS Administration Potassium Chloride 20 meq 11/14/17 10:00 11/17/17 09:47 K-Dur - PO 20 meq DAILY JESS Administration Tamsulosin HCl 0.4 mg 11/14/17 08:30 11/17/17 09:46 Flomax - PO 0.4 mg DAILY@0830 JESS Administration Torsemide 20 mg 11/14/17 15:34 11/17/17 09:47 Demadex - PO 20 mg DAILY JESS Administration IMAGIN11/14/17 Left LE MRI -> soft tissue edema of Left foot extending into 2nd toe. Faint bone marrow edema of middle phalynx of 2nd toe and early osteomyelitis cannot be ruled out. ASSESSMENT/PLAN: 82M with PMH of DM, htn, CAD, presents with swelling in dorsum of Left foot and to Left 2nd toe, admitted for Left diabetic foot. # Left diabetic foot with Left 2nd toe cellulitis - possible OM of Left foot - Podiatry Consult - Day 5 of IV Vancomycin and IV Zosyn - urine culture (-) - blood culture (-) x 72 hrs # NIDDM - BGMs - SSI - hgba1c 6.2, suggesting DM is well controlled - hold home med of Metformin # CAD - continue home meds of ASA and Lipitor # htn - continue home meds of Toprol XL and Torsemide # FEN - Fluids: po - Electrolytes: wnl, continue to monitor - Nutrition: diabetic diet # Prophylaxis - DVT ppx with Heparin TID - deconditioning ppx with PT Visit type - Emergency Visit Emergency Visit: Yes ED Registration Date: 11/14/17 Care time: The patient presented to the Emergency Department on the above date and was hospitalized for further evaluation of their emergent condition. - New Patient This patient is new to me today: No - Critical Care Critical Care patient: No
[2017-11-17] MEDS ORDERED: MORPHINE SULFATE 10 MG/1 ML *VIAL IVPUSH ONE (21:26)
[2017-11-17] MEDS: ATORVASTATIN CA 40 MG TABLET (FP) PO SCH (21:42)
--- NOTE | 2017-11-17 22:48 | PN ---
Progress Note, Physician History of Present Illness: Continues to C/O pain L great toe, 2nd toe No fever/ chills - Current Medication List Current Medications: Active Medications Acetaminophen (Tylenol -) 650 mg PO Q4H PRN PRN Reason: PAIN LEVEL 6-10 Last Admin: 11/17/17 14:30 Dose: 650 mg Aspirin (Asa -) 81 mg PO DAILY [facility] Last Admin: 11/17/17 09:47 Dose: 81 mg Atorvastatin Calcium (Lipitor -) 40 mg PO HS [facility] Last Admin: 11/17/17 21:42 Dose: 40 mg Carbidopa/Levodopa (Sinemet *Cr* 50/200 -) 1 combo PO TID [facility] Last Admin: 11/17/17 21:42 Dose: 1 combo Donepezil HCl (Aricept -) 10 mg PO DAILY [facility] Last Admin: 11/17/17 09:47 Dose: 10 mg Heparin Sodium (Porcine) (Heparin -) 5,000 unit SQ TID [facility] Last Admin: 11/17/17 21:42 Dose: 5,000 unit Vancomycin HCl 1,000 mg/ (Dextrose) 250 mls @ 250 mls/hr IVPB Q12H JESS PRN Reason: Protocol Last Admin: 11/17/17 15:27 Dose: 250 mls/hr Piperacillin Sod/Tazobactam (Sod 3.375 gm/ Dextrose) 50 mls @ 100 mls/hr IVPB Q8H-IV JESS PRN Reason: Protocol Last Admin: 11/17/17 18:18 Dose: 100 mls/hr Insulin Aspart (Novolog Vial Sliding Scale -) 1 vial SQ ACHS JESS PRN Reason: Protocol Last Admin: 11/17/17 21:20 Dose: Not Given Metoprolol Succinate (Toprol Xl -) 25 mg PO DAILY [facility] Last Admin: 11/17/17 09:47 Dose: 25 mg Potassium Chloride (K-Dur -) 20 meq PO DAILY [facility] Last Admin: 11/17/17 09:47 Dose: 20 meq Tamsulosin HCl (Flomax -) 0.4 mg PO DAILY@0830 [facility] Last Admin: 11/17/17 09:46 Dose: 0.4 mg Torsemide (Demadex -) 20 mg PO DAILY [facility] Last Admin: 11/17/17 09:47 Dose: 20 mg - Objective Vital Signs: Vital Signs Temperature 97.8 F 11/17/17 22:35 Pulse Rate 70 11/17/17 22:35 Respiratory Rate 19 11/17/17 22:35 Blood Pressure 99/55 11/17/17 22:35 O2 Sat by Pulse Oximetry (%) 94 L 11/17/17 20:10 Constitutional: Yes: No Distress Eyes: Yes: Conjunctiva Clear Cardiovascular: Yes: Regular Rate and Rhythm, S1, S2 Respiratory: Yes: CTA Bilaterally Gastrointestinal: Yes: Normal Bowel Sounds, Soft Extremities: Yes: Other (decreased erythema/ swelling 2nd toe) Labs: CBC, BMP 11/17/17 06:35 11/17/17 06:35 INR, PTT INR 1.49 (0.82-1.09) H 11/14/17 06:40 Assessment/Plan Cellulitis L 2nd toe- improved Diabetes mellitus Continue vanco/ zosyn Check uric acid
[2017-11-18] MEDS: PIPERACILLIN/TAZOB 3.375 GM 3.375 GM in DEXTROSE 5%-WATER - 50 ML IVPB SCH ×2 (01:19→09:21)
[2017-11-18] MEDS: VANCOMYCIN 1,000 MG in DEXTROSE 5%-WATER - 250 ML IVPB SCH (02:14)
[2017-11-18] MEDS: HEPARIN NA (PORCINE) 5,000 UNITS/ML 1ML VIAL SQ SCH (06:00)
[2017-11-18] MEDS: INSULIN SLIDING SCALE (NOVOLOG) 1 VIAL SQ SCH ×2 (06:01→11:36)
[2017-11-18] MEDS: TAMSULOSIN HCL 0.4 MG CAP.ER.24H (FP) PO SCH (08:30)
[2017-11-18] MEDS ORDERED: DOCUSATE SODIUM 100 MG CAPSULE (FP) PO ONE (08:45)
[2017-11-18] MEDS ORDERED: PT OWN MED DRAWER 7, Y5N ONE (09:12)
[2017-11-18] MEDS: metoPROLOL SUCCINATE 25 MG TAB.SR.24H (FP) PO SCH (09:20)
[2017-11-18] MEDS: TORSEMIDE 20 MG TABLET (FP) PO SCH (09:20)
[2017-11-18] MEDS: DONEPEZIL HCL 10 MG TABLET (FP) PO SCH (09:20)
[2017-11-18] MEDS: ASPIRIN 81 MG CHEWABLE TABLETS PO SCH (09:20)
[2017-11-18] MEDS: POTASSIUM CHLORIDE TABS 20 MEQ TABLET.ER (FP) PO SCH (09:20)
[2017-11-18 10:12] VITALS: BP 128/66
[2017-11-18] MEDS ORDERED: POLYETHYLENE GLYCOL 3350 119 GM BTL PO ONE (11:30)
--- NOTE | 2017-11-18 12:58 | PN ---
Progress Note, Physician History of Present Illness: Reports ledd foot pain No fever/ chills MRI findings reviewed ESR 24 CRP 0.9 - Current Medication List Current Medications: Active Medications Acetaminophen (Tylenol -) 650 mg PO Q4H PRN PRN Reason: PAIN LEVEL 6-10 Last Admin: 11/17/17 14:30 Dose: 650 mg Aspirin (Asa -) 81 mg PO DAILY [facility] Last Admin: 11/18/17 09:20 Dose: 81 mg Atorvastatin Calcium (Lipitor -) 40 mg PO HS [facility] Last Admin: 11/17/17 21:42 Dose: 40 mg Carbidopa/Levodopa (Sinemet *Cr* 50/200 -) 1 combo PO TID [facility] Last Admin: 11/18/17 06:00 Dose: 1 combo Donepezil HCl (Aricept -) 10 mg PO DAILY [facility] Last Admin: 11/18/17 09:20 Dose: 10 mg Heparin Sodium (Porcine) (Heparin -) 5,000 unit SQ TID [facility] Last Admin: 11/18/17 06:00 Dose: 5,000 unit Vancomycin HCl 1,000 mg/ (Dextrose) 250 mls @ 250 mls/hr IVPB Q12H JESS PRN Reason: Protocol Last Admin: 11/18/17 02:14 Dose: 250 mls/hr Piperacillin Sod/Tazobactam (Sod 3.375 gm/ Dextrose) 50 mls @ 100 mls/hr IVPB Q8H-IV JESS PRN Reason: Protocol Last Admin: 11/18/17 09:21 Dose: 100 mls/hr Insulin Aspart (Novolog Vial Sliding Scale -) 1 vial SQ ACHS [facility] PRN Reason: Protocol Last Admin: 11/18/17 11:36 Dose: Not Given Metoprolol Succinate (Toprol Xl -) 25 mg PO DAILY [facility] Last Admin: 11/18/17 09:20 Dose: 25 mg Potassium Chloride (K-Dur -) 20 meq PO DAILY [facility] Last Admin: 11/18/17 09:20 Dose: 20 meq Tamsulosin HCl (Flomax -) 0.4 mg PO DAILY@0830 [facility] Last Admin: 11/18/17 08:30 Dose: 0.4 mg Torsemide (Demadex -) 20 mg PO DAILY [facility] Last Admin: 11/18/17 09:20 Dose: 20 mg - Objective Vital Signs: Vital Signs Temperature 99 F 11/18/17 09:00 Pulse Rate 78 11/18/17 09:00 Respiratory Rate 18 11/18/17 09:00 Blood Pressure 128/66 11/18/17 09:00 O2 Sat by Pulse Oximetry (%) 94 L 11/17/17 20:10 Constitutional: Yes: No Distress Eyes: Yes: Conjunctiva Clear Cardiovascular: Yes: Regular Rate and Rhythm, S1, S2 Respiratory: Yes: CTA Bilaterally Gastrointestinal: Yes: Normal Bowel Sounds, Soft. No: Tenderness Extremities: Yes: Other (L 2nd to erythema/ swelling nearly all resolved) Labs: CBC, BMP 11/17/17 06:35 11/17/17 06:35 INR, PTT INR 1.49 (0.82-1.09) H 11/14/17 06:40 Assessment/Plan Cellulitis L 2nd toe- improved Diabetes mellitus MRI findings equivocal No clinical evidence for osteomyelitis ESR 24 CRP 0.9 Substitute po Augmentin 875mg bid x 7d Outpatient podiatry follow up
--- NOTE | 2017-11-18 14:05 | DS ---
Physical Exam: SUBJECTIVE: Patient seen and examined. Pt c/o pain to dorsum of Left foot. Otherwise, pt has no c/o. Pt denies chest pain, sob, abdominal pain, fever, chills, nausea, vomiting, constipation, diarrhea. OBJECTIVE: Vital Signs Period Temp Pulse Resp BP Sys/Franco Pulse Ox Last 24 Hr 97.5 F-99 F 70-101 18-19 99-128/55-76 94-94 PHYSICAL EXAM GENERAL: The patient is awake, alert, and fully oriented, in no acute distress. LUNGS: Breath sounds equal, clear to auscultation bilaterally, no wheezes, no crackles, no accessory muscle use. HEART: Regular rate and rhythm, S1, S2 without murmur, rub or gallop. ABDOMEN: Soft, nontender, nondistended, normoactive bowel sounds, no guarding. EXTREMITIES: 1+ nelli pulses, warm, well-perfused, no edema. Left 2nd toe erythema improved, but swelling still present at Proximal Interphalangeal joint. Dorsum of Left glass cut off tender to palpation with diffuse edema over dorsum. PSYCH: Normal mood, normal affect. LABS Laboratory Results - last 24 hr 11/17/17 11/17/17 11/18/17 17:23 21:19 05:58 POC Glucometer 166 98 103 11/18/17 11:33 POC Glucometer 127 HOSPITAL COURSE: Date of Admission:11/14/17 Date of Discharge: 11/18/17 82M with PMH of DM, htn, CAD, presents with swelling in dorsum of Left foot and to Left 2nd toe, admitted for Left diabetic foot. Not likely osteomyelitis per MRI. Pt seen by Dr. Haider (Podiatry) and will be given either a surgical boot or a walker for ambulation. Pt seen by Dr. Nguyen (Infectious Disease) and will go home with Augmentin for 7 days more. Pt's NIDDM is well controlled. 11/13/17 CXR -> no acute chest pathology 11/13/17 Left foot xray -> arthritic changes, no acute fracture or destructive bony process noted. 11/14/17 Left LE MRI -> soft tissue edema of Left foot extending into 2nd toe. Faint bone marrow edema of middle phalynx of 2nd toe and early osteomyelitis cannot be ruled out. Microbiology 11/13/17 15:45 Blood - Peripheral Venous Blood Culture - Preliminary NO GROWTH OBTAINED AFTER 96 HOURS, INCUBATION TO CONTINUE FOR 1 DAYS. 11/13/17 15:45 Blood - Peripheral Venous Blood Culture - Preliminary NO GROWTH OBTAINED AFTER 96 HOURS, INCUBATION TO CONTINUE FOR 1 DAYS. 11/13/17 21:30 Urine - Urine Clean Catch Urine Culture - Final Pt stable for discharge home. Minutes to complete discharge: 35 Discharge Summary Reason For Visit: CELLULITIS Current Active Problems Cellulitis (Acute) Failure of outpatient treatment (Acute) CAD (coronary artery disease) (Chronic) Diabetes (Chronic) HTN (hypertension) (Chronic) Condition: Stable - Instructions Diet, Activity, Other Instructions: You were treated for cellulitis to the Left 2nd toe. Use the surgical boot and/ or other equipment Dr. Haider (Podiatry) provided for you and instructed. Changes to your Medications: - Take Augmentin (antibiotic) twice daily for 7 days more. - Take Motrin/Ibuprofen or Tylenol for foot pain. - Continue your other home medications as prescribed. Continue to eat a diabetic diet. Increase physical activity as tolerated. Follow-ups: - schedule an appointment with your Primary Care Physician (Dr. Edwards) in 1 week. You may need repeat imaging in your feet in a few weeks. - schedule an appointment with your [facility] (Dr. Haider) in 1 week Please return to the hospital immediately if you experience persistent or increased foot pain, foot swelling, fever, chills, chest pain, difficulty breathing, or for any medical emergency. Referrals: Jose Haider MD [Staff Physician] - 1 Week Rafiq Edwards MD [Primary Care Provider] - 1 Week Disposition: HOME - Home Medications Comprehensive Discharge Medication List: Ambulatory Orders Metoprolol Succinate [Toprol XL -] 25 mg PO DAILY 12/28/14 Potassium Chloride 20 meq PO DAILY 12/28/14 Tamsulosin HCl 0.4 mg PO DAILY 12/28/14 Aspirin 81 mg PO DAILY 11/13/17 Atorvastatin Ca [Lipitor] 40 mg PO DAILY 11/13/17 Carbidopa/Levodopa *Cr* 50/200 [Sinemet *Cr* 50/200 -] 1 tab PO TID 11/13/17 Metformin HCl 500 mg PO TID 11/13/17 Torsemide 20 mg PO DAILY 11/13/17 Donepezil HCl [Aricept] 10 mg PO DAILY 11/14/17 Amox-Tr/K Cl [Augmentin 875-125mg Tablet -] 1 tab PO BID@0800,1730 #14 tablet This patient is new to me today: No Emergency Visit: Yes ED Registration Date: 11/14/17 Care time: The patient presented to the Emergency Department on the above date and was hospitalized for further evaluation of their emergent condition. Critical Care patient: No - Discharge Referral Referred to [facility] Yes Physician Referral: Rafiq Mercado MD ([facility])
--- NOTE | 2017-11-18 14:08 | PN ---
Teaching Attending Note Name of Resident: Lorene Larson ATTENDING PHYSICIAN STATEMENT I saw and evaluated the patient. I reviewed the resident's note and discussed the case with the resident. I agree with the resident's findings and plan as documented. SUBJECTIVE:continues to have intermittent pain on walking. denies CP, SOB, fever , chills, N/V/C/D OBJECTIVE: Last Vital Signs Temp Pulse Resp BP Pulse Ox 99 F 78 18 128/66 94 L 11/18/17 09:00 11/18/17 09:00 11/18/17 09:00 11/18/17 09:00 11/17/17 20:10 General NAD CV S1 S2 RRR no murmur/rub/gallop Lungs CTA B/L No wheezing/rales/rhonchi Extremities L foot 2nd digit is slightly erythematous, no tender on palpation. no skin breakage or oozing. pulse intact ASSESSMENT AND PLAN: 82 yo M with HTN, DM, CAD s/p CABG/5 stents, ?CHF admitted with left diabetic foot 1. Left diabetic foot with left second toe cellulitis- MRI negative for OM. clinically improved. states he has has pain but no pain on exam. On Vanco/Zosyn x5days can transition to augmetin po for 7 additional days. surgical shoe. can f/u with podiatry as outpatient. Cx negative 2. Lactic acidosis- resolved 3. CAD s/p CABG/PCI,- 4. HTN 5. NIDDM- can discharge on po. 6. d/c home on po augmentin. can f/u with podiatry as outpatient for repeat imaging.
--- NOTE | 2017-11-18 14:13 | PN ---
Progress Note (short form) - Note Progress Note: Podiatry: Seen/evaluated at bedside, NAD. Pain to L foot persistent. Denies F/V/N/C/SOB/ CP. Afebrile, VSS. ADELFO: L foot: dorsal 2nd PIPJ swelling with no fluctuance, minimal edema, digital erythema improved, no open wound, no drainage, no cellulitis, no signs of active infection. Mild tenderness to palpation. Moderate tenderness to palpation of dorsal midfoot. Tenderness along course of anterior tibial tendon. MRI L foot: diffuse swelling, faint BME base of middle phalanx, anterior tibial strain Imp: 82 year old DM M with L 2nd digit hammer toe, anterior tibial tendon strain , osteoarthritis 1. Patient can be discharged with surgical offloading shoe. Attempting to obtain CAM walker for patient for protective weightbearing. 2. Glycemic control. 3. Pain control. 4. Upon discharge, will f/u with me in wound healing center, . Joanna Haider DPM
[2017-11-18 14:36] VITALS: PULSE 83; TEMP 98
[2017-11-18] MEDS ORDERED: AMOX TR/POT CLAV 875MG/125MG TABLETS (FP) PO SCH (17:30)
== END 2017-11-18 15:20 | disposition home or self-care (01) | DRG 638 ==
LOC: JER 18:32 → JERBED 11-14 00:05 → J6S 11-14 01:15
PROVIDERS: ADMIT Internal Medicine; ATTEND Internal Medicine
DX: E11.628 Type 2 diabetes mellitus with other skin complications (principal); E87.2 Acidosis; I10 Essential (primary) hypertension; N40.0 Benign prostatic hyperplasia without lower urinary tract symptoms; I25.10 Atherosclerotic heart disease of native coronary artery without angina pectoris; M77.52 Other enthesopathy of left foot and ankle; L03.032 Cellulitis of left toe; E87.6 Hypokalemia; E83.39 Other disorders of phosphorus metabolism; M19.072 Primary osteoarthritis, left ankle and foot; Z95.5 Presence of coronary angioplasty implant and graft; Z95.1 Presence of aortocoronary bypass graft; Z96.652 Presence of left artificial knee joint
CPT/HCPCS: 36415; 71045-TC-FY; 73630-TC-LT; 73721-LT-TC; 80048; 80053; 81003; 82962; 83036; 83605; 83735; 84100; 84550; 85025; 85027; 85610; 85651; 86140; 86850; 86900; 86901; 87040; 87086; 93005; 93010; 97116-GP; 97161-GP; 99284-25; G0480; J1644

== ENCOUNTER 2017-12-27 11:13 | Inpatient (IN) | payer OTHER ==
--- NOTE | 2017-12-27 11:28 | PDOC ---
History of Present Illness - General Chief Complaint: Pain, Acute Stated Complaint: LEG PAIN Time Seen by Provider: 12/27/17 11:27 History Source: Patient, Spouse Exam Limitations: No Limitations - History of Present Illness Initial Comments: Pt is an 82 yo M with PMHx of DM, HTN, CAD s/p CABG (2007), recent hospital discharge 11/18/17 for cellulitis of L 2nd toe with augmentin x 7 days now presenting with one week hx of bilateral leg swelling and inability to bear weight on legs. The patient describes an 8/10 constant dull pain, worse on bearing weight, severe enough to keep him awake at night. They have used tylenol and motrin with limited improvement. At baseline, pt walks with a walker , but has been unable to bear any weight at all over the past week. No SOB, no worsening orthopnea, no cough, no increase in weight, no early satiety, no fevers. No hematuria, hematochezia, or palpitations. Pt's said they were scheduled for US of the lower limbs today, but since he was unable to walk, they came into the emergency room. 12/27/17 12:02 12/27/17 12:04 Timing/Duration: getting worse Severity: moderate Modifying Factors: improves with: rest Associated Symptoms: denies: chest pain, cough, fever/chills, loss of appetite, nausea/vomiting, shortness of breath, syncope, weakness Past History - Travel Traveled outside of the country in the last 30 days: No Close contact w/someone who was outside of country & ill: No - Past Medical History Allergies/Adverse Reactions: Allergies Allergy/AdvReac Type Severity Reaction Status Date / Time No Known Allergies Allergy Verified 12/27/17 11:21 Home Medications: Ambulatory Orders Metoprolol Succinate [Toprol XL -] 25 mg PO DAILY 12/28/14 Potassium Chloride 20 meq PO DAILY 12/28/14 Tamsulosin HCl 0.4 mg PO DAILY 12/28/14 Aspirin 81 mg PO DAILY 11/13/17 Atorvastatin Ca [Lipitor] 40 mg PO DAILY 11/13/17 Carbidopa/Levodopa *Cr* 50/200 [Sinemet *Cr* 50/200 -] 1 tab PO TID 11/13/17 Metformin HCl 500 mg PO TID 11/13/17 Torsemide 100 mg PO DAILY 11/13/17 Donepezil HCl [Aricept] 10 mg PO DAILY 11/14/17 Amox-Tr/K Cl [Augmentin 875-125mg Tablet -] 1 tab PO BID@0800,1730 #14 tablet Anemia: No Asthma: No Cancer: No Cardiac Disorders: Yes (CAD) CVA: No COPD: No CHF: No Dementia: No Diabetes: No GI Disorders: No Disorders: Yes (BPH) HTN: Yes Hypercholesterolemia: Yes Liver Disease: No Seizures: No Thyroid Disease: No - Surgical History Cardiac Surgery: Yes (CABG 01/2010) - Immunization History Immunization Up to Date: Yes - Suicide/Smoking/Psychosocial Hx Smoking History: Never smoked Have you smoked in the past 12 months: No Hx Alcohol Use: No Drug/Substance Use Hx: No Substance Use Type: None Hx Substance Use Treatment: No Review of Systems - Review of Systems Able to Perform ROS?: Yes Is the patient limited Romanian proficient: No Constitutional: No: Chills, Fever HEENTM: No: Nose Congestion Respiratory: No: Cough, Shortness of Breath, SOB with Exertion, Wheezing Cardiac (ROS): Yes: Edema (bilateral leg swelling). No: Chest Pain ABD/GI: No: Abdominal Distended, Blood Streaked Bowels, Nausea, Vomiting : No: Burning Musculoskeletal: Yes: Other (painful r ankle, painful L 2nd toe, ). No: Back Pain Integumentary: No: Bruising Neurological: No: Headache, Numbness, Seizure *Physical Exam - Physical Exam General Appearance: Yes: Appropriately Dressed, Mild Distress HEENT: negative: Pale Conjunctivae, Pharyngeal Erythema Neck: positive: Supple Respiratory/Chest: positive: Lungs Clear, Normal Breath Sounds. negative: Chest Tender, Respiratory Distress, Labored Respiration, Stridor, Wheezing Cardiovascular: positive: Regular Rate, S1, S2. negative: Murmur Gastrointestinal/Abdominal: positive: Normal Bowel Sounds, Soft Musculoskeletal: positive: Other (Tender R ankle, tender L 2nd toe). negative: Vertebral Tenderness Extremity: positive: Tender (warm feet bilaterally, palpable dorsalis pedis 1+ bilaterally, 0.5cm hard elevation over L 2nd toe ), Pedal Edema (bilateral , above ankles), Erythema. negative: Coldness, Calf Tenderness Integumentary: positive: Warm Neurologic: positive: Fully Oriented, Alert, Motor Strength 5/5 (Upper limbs blaterally, hip/knee joints bilateral), Sensory Deficit (reduced touch sensation , medially both lower limbs). negative: EOM Palsy, Facial Droop Heart Score/ECG Review - Electrocardiogram EKG: Non specific repolarization disturbance (mutiple PVCs previously documented ) - Age Age: >/= 65 - Risk Factors Risk Factors Heart Score: Yes Hx Hypertension, Yes Hx Diabetes, Yes Hx Obesity - ECG Intrepretation Rhythm: PVC(s) (previously documented) - [place]: Normal - P and MO Delta Wave(s) Present: No WPW: No - QRS Widened: RBBB (previously documented) Poor R Wave Progression: Yes Q Wave Present: No - ST and T Non Specific ST-T Wave changes: Yes Prolonged Q-T Interval: No - ECG Impressions Normal ECG: Yes Non-specific ST Elevation: Yes Ischemic Changes: No Bradycardia: No Torsades jaxon Pointes: No WPW: No Comment:: ventricular rate 94/min QT/QTc- 446/557 ( probably incorporating the PVCs) Sinus rythm with frequent PVCs, RBBB, inferior infarct undetermined (previously documented RBBB and PVCs) Pt had [id number] ago, no chest pain or SOB symptoms 12/27/17 12:44 ED Treatment Course - LABORATORY CBC & Chemistry Diagram: 12/27/17 12:32 12/27/17 12:32 Medical Decision Making - Medical Decision Making 12/27/17 12:48 Patient has bilateral leg swelling and reduced mobility for the past week with tenderness bilaterally Will do duplex of both LE MRI done during admission 11/18/17 could not R/O osteomyelitis of L 2nd toe, will do Xray of L foot Will Do sepsis screen since patient may have osteomyelitis, although no fever, chills - blood culture, CBC, lactate, trops, PT/PTT, urinalysis, EKG 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 Pt denies, but spouse describes SOB After morphine 2mg, Pt was still unable to bear weight on the R foot With the bilateral pedal edema, we need to R/O CHF Pt will benefit from an ECHO No cardiology note noted in chart but pt says Dr Garcia is weather analyst. Call was made to Dr Garcia, sustainable design consultant Dr Casanova to call back Plan is to discuss likelihood of CHF, since pt is on torsemide at home, although BMP is over 800 and what the latest ECHO showed 12/27/17 16:[address] Casanova who does not know the patient, he is open to lasix iv 12/27/17 16:42 D/W Dr Morales- Pt is hypertensive and unable to ambulate independently at this time. Needs to be further investigated and managed. Will admit to hospitalist service. We provided the patient with a walker and he had significant L foot pain while attempting to bear weight. 12/27/17 18:12 12/27/17 18:14 No evidence of cellulitis Xray of LLE- showed no osteomyelitis. *DC/Admit/Observation/Transfer Diagnosis at time of Disposition: Localized swelling of both lower legs - Discharge Dispostion Admit: Yes Decision to Admit order Date/Time: Patient is unable to ambulate. He is unable to put pressure on the L foot due to pain but is currently not short of breath. There is a lot of discrepancy between the patient's history and that of the . She insists he is SOB but no clinical evidence of acute exacerbation of CHF at the moment except for bilateral pedal edema. Will go ahead and admit to hospitalist team for further evaluation. 12/27/17 18:05 - Referrals Referrals: Rafiq Edwards MD [Primary Care Provider] - - Patient Instructions - Post Discharge Activity - Attestations Physician Attestion: 12/27/17 18:15 Nayana Porter MD
[2017-12-27 11:30] VITALS: BMI 27.4
[2017-12-27] MEDS ORDERED: morphine CARPU-JECT 2 MG/1 ML DISP.SYRIN IVPUSH ONE (11:55)
--- NOTE | 2017-12-27 12:08 | PDOC ---
Attending Attestation - HPI HPI: The patient is an 82 year old male accompanied with his , with a significant PMH of DM, HTN, BPH, CAD s/p CABG (2009), and recent hospital discharge on 11/18/17 for cellulitis of left 2nd toe with augmentin for 7 days, presents to the ED for evaluation of bilateral leg swelling, leg weakness, and leg pain beginning one week ago. The patient reports not being able to bear weight with his legs and describes the pain as a constant dull pain, ranked 8/ 10 in severity. He describes the pain is severe enough to prevent him from sleeping. He admits taking tylenol and motrin, but denies any alleviation in pain. Of note, the patient uses a walker at baseline, but has not been able to stand or walk at any point this week, which prompted his visit to the emergency department. The patient denies chest pain, dyspnea, orthopnea, headache, and dizziness. Denies fevers, chills, nausea, vomiting, diarrhea, and constipation. Denies dysuria, frequency, urgency, and hematuria. Allergies: NKA Past surgical history: CABG (2009) Social history: No reported cigarette, alcohol, or drug use. PCP: Dr. Rafiq Edwards ([phone]) <Alan Dempsey - Last Filed: 12/27/17 12:25> - Resident Resident Name: Nayana Porter I - ED Attending Attestation I have performed the following: I have examined & evaluated the patient, The case was reviewed & discussed with the resident, I agree w/resident's findings & plan, Exceptions are as noted - Physicial Exam PE: GENERAL: Awake, alert, and fully oriented, in no acute distress HEAD: No signs of trauma EYES: PERRLA, EOMI, sclera anicteric, conjunctiva clear ENT: Auricles normal inspection, hearing grossly normal, nares patent, oropharynx clear without exudates. Moist mucosa NECK: Normal ROM, supple, no lymphadenopathy, JVD, or masses LUNGS: Breath sounds equal, clear to auscultation bilaterally. No wheezes, and no crackles HEART: Regular rate and rhythm, normal S1 and S2, no murmurs, rubs or gallops ABDOMEN: Soft, nontender, normoactive bowel sounds. No guarding, no rebound. No masses EXTREMITIES: Normal range of motion, 4+ pitting edema to BLE. No clubbing or cyanosis. No cords, erythema, or tenderness NEUROLOGICAL: Cranial nerves II through XII grossly intact. Normal speech. Motor and sensation intact. Unable to ambulate due to B/L foot/leg pain. SKIN: Warm, Dry, normal turgor, no rashes or lesions noted. - Medical Decision Making Pt did not initially state he had history of CHF, however, he is on torsemide. No recent med changes. He is significantly uncomfortable with his legs, they are severely edematous. Unable to ambulate. Will give lasix in ED and reassess. If he is still unable to ambulate will admit. <Nicki Morales - Last Filed: 12/27/17 16:42> Heart Score/ECG Review - ECG Impressions Comment:: EKG read 12:09- Sinus rhythm 94 bpm with PVCs in 3:1 pattern. +RBBB. Similar to prior EKG. <Nicki Morales - Last Filed: 12/27/17 16:42> Attestations - Attestations Documentation prepared by Alan Dempsey, acting as medical apparatus model maker for Nicki Morales MD. <Alan Dempsey - Last Filed: 12/27/17 12:25>
[2017-12-27 12:59] LABS: BASO % 0.3 % (0-2.0); EOS % 0.3 % (0-4.5); HEMOGLOBIN 12.6 GM/dL (11.7-16.9); LYMPH % 17.9 % (8-40); MCH 29.1 pg (25.7-33.7); MCHC 33.2 g/dl (32.0-35.9); MEAN CELL VOLUME 87.8 fl (80-96); MEAN PLT VOLUME 8.4 fl (7.5-11.1); MONO % 11.5 % (3.8-10.2); PLATELET COUNT 168 K/MM3 (134-434); RBC 4.32 M/mm3 (4.00-5.60); RDW 14.5 % (11.9-15.9); WHITE BLOOD COUNT 6.4 K/mm3 (4.0-10.0)
[2017-12-27] MEDS ORDERED: morphine SULFATE 4 MG/ML VIAL ONE (13:06)
[2017-12-27 13:10] LABS: URINE APPEARANCE CLEAR; URINE BILIRUBIN NEGATIVE (<2.0 mg/dL); URINE COLOR STRAW; URINE GLUCOSE (UA) NEGATIVE (NEGATIVE); URINE KETONE NEGATIVE (NEGATIVE); URINE LEUK ESTERASE NEGATIVE (NEGATIVE); URINE NITRITE NEGATIVE (NEGATIVE); URINE PROTEIN NEGATIVE (NEGATIVE); URINE UROBILINOGEN NEGATIVE mg/dL (0.2-1.0)
[2017-12-27 13:17] LABS: ALBUMIN 3.4 g/dl (3.4-5.0); ALK PHOS 55 U/L (45-117); ANION GAP 5 (8-16); BLOOD UREA NITROGEN 18 mg/dL (7-18); CALCIUM 8.5 mg/dL (8.5-10.1); CHLORIDE 104 mmol/L (98-107); CO2 31 mmol/L (21-32); GLUCOSE,RANDOM 121 mg/dL (74-106); INR 1.28 (0.82-1.09); POTASSIUM 3.6 mmol/L (3.5-5.1); PROTHROMBIN TIME (PATIENT) 14.5 SEC (9.98-11.88); SGOT/AST 17 U/L (15-37); SGPT/ALT < 6 U/L (12-78); SODIUM 140 mmol/L (136-145); TOT PROT 6.7 g/dl (6.4-8.2)
[2017-12-27 13:23] LABS: BILIRUBIN,TOTAL 0.9 mg/dL (0.2-1.0)
[2017-12-27 14:26] LABS: N-TERMINAL BNP 877.54 pg/ml (5-450)
[2017-12-27] MEDS ORDERED: FUROSEMIDE 40 MG/4 ML INJECTABLE VIAL IVPUSH ONE (16:04)
[2017-12-27] MEDS ORDERED: FUROSEMIDE 40 MG/4 ML INJECTABLE VIAL ONE (16:11)
--- NOTE | 2017-12-27 18:12 | HP ---
CHIEF COMPLAINT: Bilateral leg pain and swelling PCP: Dr. Edwards Cardiology: Dr. María Garcia HISTORY OF PRESENT ILLNESS: 82 year-old male with a PMH significant for HTN, CAD s/p CABG x 5, NIDDM, possible osteomyelitis of left foot, Parkinson's disease and dementia. Patient presented today with a complaint of bilateral leg pain and swelling and inability to walk or weight bear. Patient states he has had these symptoms for two months, his says one week. He is on high-dose diuretics at home although he does not appear to have a previous history of heart failure. Patient was hospitalized from 11/13-11/18 for cellulitis and an MRI on 11/14 showed possible osteo of left foot. Patient has been followed by Dr. Haider with whom patient has an appointment on 12/30. ER course was notable for: (1) US BLE: negative for DVT Recent Travel: No PAST MEDICAL HISTORY: Hypertension Coronary artery disease NIDDM Possible osteomyelitis left foot PAST SURGICAL HISTORY: CABG x 5v Left total knee replacement Social History: Smoking: no Alcohol: no Drugs: no Family History: non-contributory Allergies No Known Allergies Allergy (Verified 12/27/17 11:21) HOME MEDICATIONS: Home Medications Medication Instructions Recorded Metoprolol Succinate [Toprol XL -] 25 mg PO DAILY 12/28/14 Potassium Chloride 20 meq PO DAILY 12/28/14 Tamsulosin HCl 0.4 mg PO DAILY 12/28/14 Aspirin 81 mg PO DAILY 11/13/17 Atorvastatin Ca [Lipitor] 40 mg PO DAILY 11/13/17 Carbidopa/Levodopa *Cr* 50/200 1 tab PO TID 11/13/17 [Sinemet *Cr* 50/200 -] Metformin HCl 500 mg PO TID 11/13/17 Torsemide 100 mg PO DAILY 11/13/17 Donepezil HCl [Aricept] 10 mg PO DAILY 11/14/17 Amox-Tr/K Cl [Augmentin 875-125mg 1 tab PO BID@0800,1730 #14 tablet 11/18/17 Tablet -] REVIEW OF SYSTEMS CONSTITUTIONAL: Absent: fever, chills, diaphoresis, generalized weakness, malaise, loss of appetite, weight change HEENT: Absent: rhinorrhea, nasal congestion, throat pain, throat swelling, difficulty swallowing, mouth swelling, ear pain, eye pain, visual changes CARDIOVASCULAR: +bilateral lower extremity pain and swelling Absent: chest pain, syncope, palpitations, irregular heart rate, lightheadedness , peripheral edema RESPIRATORY: Absent: cough, shortness of breath, dyspnea with exertion, orthopnea, wheezing, stridor, hemoptysis GASTROINTESTINAL: Absent: abdominal pain, abdominal distension, nausea, vomiting, diarrhea, constipation, melena, hematochezia GENITOURINARY: Absent: dysuria, frequency, urgency, hesitancy, hematuria, flank pain, genital pain MUSCULOSKELETAL: +left foot pain Absent: myalgia, arthralgia, joint swelling, back pain, neck pain SKIN: Absent: rash, itching, pallor HEMATOLOGIC/IMMUNOLOGIC: Absent: easy bleeding, easy bruising, lymphadenopathy, frequent infections ENDOCRINE: Absent: unexplained weight gain, unexplained weight loss, heat intolerance, cold intolerance NEUROLOGIC: Absent: headache, focal weakness or paresthesias, dizziness, unsteady gait, seizure, mental status changes, bladder or bowel incontinence PSYCHIATRIC: Absent: anxiety, depression, suicidal or homicidal ideation, hallucinations. PHYSICAL EXAMINATION Vital Signs - 24 hr 12/27/17 12/27/17 12/27/17 11:25 11:51 15:31 Temperature 97.3 F L 97.9 F Pulse Rate 93 H 78 Pulse Rate [ 85 Left Apical] Respiratory 18 16 Rate Blood Pressure 126/92 Blood Pressure 110/52 [Left Arm] O2 Sat by Pulse 97 96 96 Oximetry (%) 12/27/17 16:16 Temperature Pulse Rate Pulse Rate [ 85 Left Apical] Respiratory 16 Rate Blood Pressure Blood Pressure 101/51 [Left Arm] O2 Sat by Pulse 97 Oximetry (%) GENERAL: Awake, alert, and fully oriented, in no acute distress. HEAD: Normal with no signs of trauma. EYES: Pupils equal, round and reactive to light, extraocular movements intact, sclera anicteric, conjunctiva clear. No lid lag. EARS, NOSE, THROAT: Ears normal, nares patent, oropharynx clear without exudates. Moist mucous membranes. NECK: Normal range of motion, supple without lymphadenopathy, JVD, or masses. LUNGS: Breath sounds equal, clear to auscultation bilaterally. No wheezes, and no crackles. No accessory muscle use. HEART: Regular rate and rhythm, normal S1 and S2 ABDOMEN: Soft, nontender, not distended, normoactive bowel sounds, no guarding, no rebound, no masses. MUSCULOSKELETAL: Normal range of motion at all joints. No bony deformities or tenderness. No CVA tenderness. UPPER EXTREMITIES: 2+ pulses, warm, well-perfused. No cyanosis. No clubbing. No peripheral edema. LOWER EXTREMITIES: 3+ bilateral edema extending from knees to toes, venous stasis changes; no erythema; no apparent break in skin; no calf-tenderness NEUROLOGICAL: Cranial nerves II-XII intact. Normal speech. Laboratory Results - last 24 hr 12/27/17 12/27/17 12/27/17 12:32 12:32 12:32 WBC 6.4 RBC 4.32 Hgb 12.6 Hct 38.0 MCV 87.8 MCH 29.1 MCHC 33.2 RDW 14.5 Plt Count 168 MPV 8.4 Neutrophils % 70.0 Lymphocytes % 17.9 D Monocytes % 11.5 H Eosinophils % 0.3 D Basophils % 0.3 PT with INR INR PTT (Actin FS) 28.2 Sodium 140 Potassium 3.6 Chloride 104 Carbon Dioxide 31 Anion Gap 5 L BUN 18 D Creatinine 1.0 Creat Clearance w eGFR > 60 Random Glucose 121 H D Lactic Acid Calcium 8.5 Total Bilirubin 0.9 D AST 17 D ALT < 6 L D Alkaline Phosphatase 55 Troponin I B-Natriuretic Peptide Total Protein 6.7 D Albumin 3.4 D Urine Color Urine Appearance Urine pH Ur Specific Becker Urine Protein Urine Glucose (UA) Urine Ketones Urine Blood Urine Nitrite Urine Bilirubin Urine Urobilinogen Ur Leukocyte Esterase 12/27/17 12/27/17 12/27/17 12:32 12:32 12:32 WBC RBC Hgb Hct MCV MCH MCHC RDW Plt Count MPV Neutrophils % Lymphocytes % Monocytes % Eosinophils % Basophils % PT with INR 14.50 H INR 1.28 H PTT (Actin FS) Sodium Potassium Chloride Carbon Dioxide Anion Gap BUN Creatinine Creat Clearance w eGFR Random Glucose Lactic Acid 1.3 Calcium Total Bilirubin AST ALT Alkaline Phosphatase Troponin I B-Natriuretic Peptide Total Protein Albumin Urine Color Straw Urine Appearance Clear Urine pH 7.0 D Ur Specific Becker 1.006 Urine Protein Negative Urine Glucose (UA) Negative Urine Ketones Negative Urine Blood Negative Urine Nitrite Negative Urine Bilirubin Negative Urine Urobilinogen Negative Ur Leukocyte Esterase Negative 12/27/17 12:32 WBC RBC Hgb Hct MCV MCH MCHC RDW Plt Count MPV Neutrophils % Lymphocytes % Monocytes % Eosinophils % Basophils % PT with INR INR PTT (Actin FS) Sodium Potassium Chloride Carbon Dioxide Anion Gap BUN Creatinine Creat Clearance w eGFR Random Glucose Lactic Acid Calcium Total Bilirubin AST ALT Alkaline Phosphatase Troponin I < 0.02 B-Natriuretic Peptide 877.54 H Total Protein Albumin Urine Color Urine Appearance Urine pH Ur Specific Becker Urine Protein Urine Glucose (UA) Urine Ketones Urine Blood Urine Nitrite Urine Bilirubin Urine Urobilinogen Ur Leukocyte Esterase ASSESSMENT/PLAN 82 year-old man with a PMH significant for HTN, CAD s/p CABG x 5v, NIDDM, and possible osteomyelitis of left foot. Placed on observation for bilateral lower extremity edema, pain, and inability to weight bear. r/o CHF --bilateral lower extremity edema, BNP mildly elevated --lower extremity edema was noted during previous hospitalization in November 2017 but it does not appear there was a cardiac workup --echo ordered --continue home dose torsemide 100mg for now --strict I&Os, daily weights Hypertension --BP stable --continue Toprol XL, Torsemide Coronary artery disease --continue Toprol XL, Lipitor, ASA NIDDM --Novolog sliding scale coverage Possible osteomyelitis left foot --presently off antibiotics --request Dr. Haider consult FEN Fluids: PO intake adequate Electrolytes: replete as indicated Nutrition: low sodium diabetic DVT prophylaxis: subq heparin Physical therapy Dispo: continues to require observation. Full code. Visit type - Emergency Visit Emergency Visit: Yes ED Registration Date: 12/27/17 Care time: The patient presented to the Emergency Department on the above date and was hospitalized for further evaluation of their emergent condition. - New Patient This patient is new to me today: Yes Date on this admission: 12/28/17 - Critical Care Critical Care patient: No Hospitalist Screening - Colonoscopy Questionnaire Colonoscopy Questionnaire: Colonoscopy Questionnaire - Patient: 50 - 75 years old and never had a screening colonoscopy: Unknown History of colon or rectal polyps, or CA: Unknown History of IBD, Crohn's disease or UC: Unknown History of abdominal radiation therapy as a child: Unknown - Relative: 1 with colon or rectal CA, or polyps at age 60 or younger: Unknown Colon or rectal CA diagnosed at age 45 or younger: Unknown Multiple relatives with colon or rectal CA: Unknown - Outcome: Screening Result: Negative Screen
[2017-12-27] MEDS ORDERED: metFORMIN HCL 500 MG TABLET (FP) PO SCH (18:15)
[2017-12-27] MEDS ORDERED: metFORMIN HCL 500 MG TABLET (FP) ONE (18:41)
[2017-12-28] MEDS: HEPARIN NA (PORCINE) 5,000 UNITS/ML 1ML VIAL SQ SCH ×4 (00:48→22:34)
[2017-12-28] MEDS: INSULIN SLIDING SCALE (NOVOLOG) 1 VIAL SQ SCH ×5 (00:49→22:34)
[2017-12-28 07:12] LABS: BASO % 0.5 % (0-2.0); EOS % 0.7 % (0-4.5); HEMATOCRIT 35.1 % (35.4-49); HEMOGLOBIN 12.1 GM/dL (11.7-16.9); LYMPH % 24.7 % (8-40); MCH 30.2 pg (25.7-33.7); MCHC 34.5 g/dl (32.0-35.9); MEAN CELL VOLUME 87.4 fl (80-96); MEAN PLT VOLUME 8.2 fl (7.5-11.1); MONO % 11.8 % (3.8-10.2); NEUT % 62.3 % (42.8-82.8); PLATELET COUNT 164 K/MM3 (134-434); RBC 4.02 M/mm3 (4.00-5.60); RDW 14.5 % (11.9-15.9); WHITE BLOOD COUNT 6.1 K/mm3 (4.0-10.0)
[2017-12-28 07:41] LABS: ALBUMIN 2.7 g/dl (3.4-5.0); ANION GAP 4 (8-16); BLOOD UREA NITROGEN 17 mg/dL (7-18); CALCIUM 8.1 mg/dL (8.5-10.1); CHLORIDE 106 mmol/L (98-107); CO2 31 mmol/L (21-32); GLUCOSE,RANDOM 110 mg/dL (74-106); MAGNESIUM 2.2 mg/dL (1.8-2.4); POTASSIUM 3.6 mmol/L (3.5-5.1); SODIUM 141 mmol/L (136-145)
[2017-12-28 07:46] LABS: ALK PHOS 41 U/L (45-117); BILIRUBIN,TOTAL 1.1 mg/dL (0.2-1.0); CREATININE 0.9 mg/dL (0.7-1.3); SGOT/AST 17 U/L (15-37); SGPT/ALT < 6 U/L (12-78); TOT PROT 5.7 g/dl (6.4-8.2)
[2017-12-28] MEDS ORDERED: PT OWN MED DRAWER 7, Y5N ONE ×3 (09:40→21:10)
[2017-12-28] MEDS: POTASSIUM CHLORIDE TABS 20 MEQ TABLET.ER (FP) PO SCH (09:49)
[2017-12-28] MEDS: TAMSULOSIN HCL 0.4 MG CAP.ER.24H (FP) PO SCH (09:49)
[2017-12-28] MEDS: ASPIRIN 81 MG CHEWABLE TABLETS PO SCH (09:49)
[2017-12-28] MEDS: TORSEMIDE 100 MG TABLET PO SCH (09:54)
[2017-12-28] MEDS: metoPROLOL SUCCINATE 25 MG TAB.SR.24H (FP) PO SCH (09:55)
--- NOTE | 2017-12-28 10:42 | CONSULT ---
Consult Consult Specialty:: Cardiology (Dr. Casanova for Dr. Hernandez) Referred by:: Medicine Reason for Consultation:: Lower extremity edema, ?CHF - History of Present Illness Chief Complaint: Foot pain (Bilateral) History of Present Illness: 82 year old male Known to Dr. 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: Parkinson's Cardio/Vascular: Yes: CAD - Alcohol/Substance Use Hx Alcohol Use: No - Smoking History Smoking history: Never smoked Have you smoked in the past 12 months: No Home Medications - Allergies Allergies/Adverse Reactions: Allergies Allergy/AdvReac Type Severity Reaction Status Date / Time No Known Allergies Allergy Verified 12/27/17 11:21 - Home Medications Home Medications: Ambulatory Orders Metoprolol Succinate [Toprol XL -] 25 mg PO DAILY 12/28/14 Potassium Chloride 20 meq PO DAILY 12/28/14 Tamsulosin HCl 0.4 mg PO DAILY 12/28/14 Aspirin 81 mg PO DAILY 11/13/17 Atorvastatin Ca [Lipitor] 40 mg PO DAILY 11/13/17 Carbidopa/Levodopa *Cr* 50/200 [Sinemet *Cr* 50/200 -] 1 tab PO TID 11/13/17 Metformin HCl 500 mg PO TID 11/13/17 Torsemide 100 mg PO DAILY 11/13/17 Donepezil HCl [Aricept] 10 mg PO DAILY 11/14/17 Amox-Tr/K Cl [Augmentin 875-125mg Tablet -] 1 tab PO BID@0800,1730 #14 tablet Review of Systems - Review of Systems Constitutional: reports: No Symptoms Eyes: reports: No Symptoms HENT: reports: No Symptoms Neck: reports: No Symptoms Cardiovascular: reports: Shortness of Breath Respiratory: reports: SOB Gastrointestinal: reports: No Symptoms Musculoskeletal: reports: Extremity Pain Neurological: reports: No Symptoms Physical Exam Vital Signs: Vital Signs Temperature 98 F 12/28/17 09:00 Pulse Rate 79 12/28/17 09:00 Respiratory Rate 20 12/28/17 09:00 Blood Pressure 108/52 12/28/17 09:00 O2 Sat by Pulse Oximetry (%) 98 12/28/17 03:36 Constitutional: Yes: No Distress, Calm Eyes: Yes: WNL, Conjunctiva Clear HENT: Yes: WNL Neck: Yes: WNL Cardiovascular: Yes: Regular Rate and Rhythm Respiratory: Yes: CTA Bilaterally Gastrointestinal: Yes: Normal Bowel Sounds Extremities: Yes: WNL Edema: Yes Edema: LLE: 1+, RLE: 1+ Labs: CBC, BMP 12/28/17 06:48 12/28/17 06:48 Imaging - Results EKG: Image Reviewed (Done at 12/27/2017 at 19:19 NSR at 89/min with RBBB and lateral T-wave inversions) Assessment/Plan 82 yo male with HTN, CAD s/p CABG, NIDDM osteo of left foot now with bilateral leg pain and elevated BNP 1) Elevated BNP -Edema and CXR with pulmonary venous congestion -Would continue Torsemide 100mg daily and reassess (is on Torsemide 100mg at home ? if taking) -Trop negative and no DVT on duplex -Will get echo to assess LV/RV 2) CAD -S/p CABG -Stable without ischemic symptoms -Echo for LV function 3) HTN -Well controlled -Continue outpatient antihypertensive regimen 4) DM -Primary team recs
--- NOTE | 2017-12-28 11:38 | PN ---
Physical Exam: SUBJECTIVE: Patient seen and examined at bedside. States his leg pain is not bad but both feet hurt him when he tries to walk. OBJECTIVE: Vital Signs Period Temp Pulse Resp BP Sys/Franco Pulse Ox Last 24 Hr 97.9 F-99.3 F 76-98 16-24 101-118/51-72 96-98 GENERAL: The patient is awake, alert, and fully oriented, in no acute distress. LUNGS: Breath sounds equal, clear to auscultation bilaterally, no wheezes, no crackles, no accessory muscle use. HEART: Regular rate and rhythm, S1, S2 ABDOMEN: Soft, nontender, nondistended, normoactive bowel sounds, no guarding, no rebound EXTREMITIES: 3+bilateral lower extremity edema; tenderness both ankles and feet NEUROLOGICAL: Cranial nerves II through XII grossly intact. Normal speech, gait not observed. Laboratory Results - last 24 hr 12/27/17 12/27/17 12/27/17 12:32 12:32 12:32 WBC 6.4 RBC 4.32 Hgb 12.6 Hct 38.0 MCV 87.8 MCH 29.1 MCHC 33.2 RDW 14.5 Plt Count 168 MPV 8.4 Neutrophils % 70.0 Lymphocytes % 17.9 D Monocytes % 11.5 H Eosinophils % 0.3 D Basophils % 0.3 PT with INR INR PTT (Actin FS) 28.2 Sodium 140 Potassium 3.6 Chloride 104 Carbon Dioxide 31 Anion Gap 5 L BUN 18 D Creatinine 1.0 Creat Clearance w eGFR > 60 POC Glucometer Random Glucose 121 H D Lactic Acid Calcium 8.5 Magnesium Total Bilirubin 0.9 D AST 17 D ALT < 6 L D Alkaline Phosphatase 55 Troponin I B-Natriuretic Peptide Total Protein 6.7 D Albumin 3.4 D Urine Color Urine Appearance Urine pH Ur Specific Ferguson Urine Protein Urine Glucose (UA) Urine Ketones Urine Blood Urine Nitrite Urine Bilirubin Urine Urobilinogen Ur Leukocyte Esterase 12/27/17 12/27/17 12/27/17 12:32 12:32 12:32 WBC RBC Hgb Hct MCV MCH MCHC RDW Plt Count MPV Neutrophils % Lymphocytes % Monocytes % Eosinophils % Basophils % PT with INR 14.50 H INR 1.28 H PTT (Actin FS) Sodium Potassium Chloride Carbon Dioxide Anion Gap BUN Creatinine Creat Clearance w eGFR POC Glucometer Random Glucose Lactic Acid 1.3 Calcium Magnesium Total Bilirubin AST ALT Alkaline Phosphatase Troponin I B-Natriuretic Peptide Total Protein Albumin Urine Color Straw Urine Appearance Clear Urine pH 7.0 D Ur Specific Ferguson 1.006 Urine Protein Negative Urine Glucose (UA) Negative Urine Ketones Negative Urine Blood Negative Urine Nitrite Negative Urine Bilirubin Negative Urine Urobilinogen Negative Ur Leukocyte Esterase Negative 12/27/17 12/28/17 12/28/17 12:32 00:18 06:48 WBC 6.1 RBC 4.02 Hgb 12.1 Hct 35.1 L MCV 87.4 MCH 30.2 MCHC 34.5 RDW 14.5 Plt Count 164 MPV 8.2 Neutrophils % 62.3 Lymphocytes % 24.7 D Monocytes % 11.8 H Eosinophils % 0.7 D Basophils % 0.5 PT with INR INR PTT (Actin FS) Sodium Potassium Chloride Carbon Dioxide Anion Gap BUN Creatinine Creat Clearance w eGFR POC Glucometer 116 Random Glucose Lactic Acid Calcium Magnesium Total Bilirubin AST ALT Alkaline Phosphatase Troponin I < 0.02 B-Natriuretic Peptide 877.54 H Total Protein Albumin Urine Color Urine Appearance Urine pH Ur Specific Ferguson Urine Protein Urine Glucose (UA) Urine Ketones Urine Blood Urine Nitrite Urine Bilirubin Urine Urobilinogen Ur Leukocyte Esterase 12/28/17 06:48 WBC RBC Hgb Hct MCV MCH MCHC RDW Plt Count MPV Neutrophils % Lymphocytes % Monocytes % Eosinophils % Basophils % PT with INR INR PTT (Actin FS) Sodium 141 Potassium 3.6 Chloride 106 Carbon Dioxide 31 Anion Gap 4 L BUN 17 Creatinine 0.9 Creat Clearance w eGFR > 60 POC Glucometer Random Glucose 110 H Lactic Acid Calcium 8.1 L Magnesium 2.2 Total Bilirubin 1.1 H D AST 17 ALT < 6 L Alkaline Phosphatase 41 L D Troponin I B-Natriuretic Peptide Total Protein 5.7 L Albumin 2.7 L D Urine Color Urine Appearance Urine pH Ur Specific Ferguson Urine Protein Urine Glucose (UA) Urine Ketones Urine Blood Urine Nitrite Urine Bilirubin Urine Urobilinogen Ur Leukocyte Esterase Active Medications Generic Name Dose Route Start Last Admin Trade Name Freq PRN Reason Stop Dose Admin Aspirin 81 mg 12/28/17 10:00 12/28/17 09:49 Asa - PO 81 mg DAILY JESS Administration Atorvastatin Calcium 40 mg 12/28/17 22:00 Lipitor - PO HS JESS Carbidopa/Levodopa 1 combo 12/27/17 22:00 12/28/17 06:13 Sinemet *Cr* 50/200 - PO 1 combo TID JESS Administration Donepezil HCl 10 mg 12/28/17 22:00 Aricept - PO HS JESS Heparin Sodium (Porcine) 5,000 unit 12/27/17 22:00 12/28/17 06:14 Heparin - SQ 5,000 unit TID JESS Administration Insulin Aspart 1 vial 12/27/17 22:00 12/28/17 06:55 Novolog Vial Sliding Scale - SQ Not Given ACHS [facility] Protocol Metoprolol Succinate 25 mg 12/28/17 10:00 12/28/17 09:55 Toprol Xl - PO Not Given DAILY JESS Potassium Chloride 20 meq 12/28/17 10:00 12/28/17 09:49 K-Dur - PO 20 meq DAILY JESS Administration Tamsulosin HCl 0.4 mg 12/28/17 08:30 12/28/17 09:49 Flomax - PO 0.4 mg DAILY@0830 JESS Administration Torsemide 100 mg 12/28/17 10:00 12/28/17 09:54 Demadex - PO Not Given DAILY JESS ASSESSMENT/PLAN 82 year-old man with a PMH significant for HTN, CAD s/p CABG x 5v, NIDDM, and possible osteomyelitis of left foot. Placed on observation for bilateral lower extremity edema, pain, and inability to weight bear. r/o CHF --bilateral lower extremity edema, BNP mildly elevated --lower extremity edema was noted during previous hospitalization in November 2017 but it does not appear there was a cardiac workup --echo ordered --continue home dose torsemide 100mg for now --strict I&Os, daily weights Hypertension --BP stable --continue Toprol XL, Torsemide Coronary artery disease --continue Toprol XL, Lipitor, ASA NIDDM --Novolog sliding scale coverage Possible osteomyelitis left foot --presently off antibiotics --request Dr. Haider consult FEN Fluids: PO intake adequate Electrolytes: replete as indicated Nutrition: low sodium diabetic DVT prophylaxis: subq heparin Physical therapy Dispo: continues to require observation. Full code. Visit type - Emergency Visit Emergency Visit: Yes ED Registration Date: 12/27/17 Care time: The patient presented to the Emergency Department on the above date and was hospitalized for further evaluation of their emergent condition. - New Patient This patient is new to me today: No - Critical Care Critical Care patient: No
--- NOTE | 2017-12-28 12:58 | CONSULT ---
Consult - text type - Consultation Consultation Note: Podiatry Consultation: 82 year old DM M well known to me from prior admission and [facility], presents with bilateral LE weakness, pain, swelling. Denies F/V/N/C/SOB/CP. Afebrile, VSS. He is having trouble walking. Sugars fairly controlled. PMHx: DM, HTN, CAD s/p CABG MEds: noted ALL: NKMA ADELFO: Pedal pulses 1/4, TG wnl, CFT brisk to all toes bilaterally. 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 There is no open wound, mild tenderness to palpation and ROM. There is significant tenderness on ROM of 1st MTPJ. There is significant tenderness on palpation of joint. There is no erythema, no cellulitis, no active SOIs. There is no fluctuance. There is also tenderness on palpation of the lower leg. Blood Cx: no growth WBC: 6.1 Foot XR: no evidence of osteomyelitis Imp: 82 year old DM M with Bilateral foot pain 1. R foot pain ?gout: uric acid 2. Physical Therapy 3. CHF workup 4. Encouraged leg elevation 5. Recommend PVRs to evaluate PVD 6. Thank you for the courtesy of this consultation. Joanna Haider DPM
[2017-12-28] MEDS: ATORVASTATIN CA 40 MG TABLET (FP) PO SCH (22:30)
[2017-12-28] MEDS: DONEPEZIL HCL 10 MG TABLET (FP) PO SCH (22:31)
[2017-12-29] MEDS: HEPARIN NA (PORCINE) 5,000 UNITS/ML 1ML VIAL SQ SCH ×3 (05:47→21:26)
[2017-12-29] MEDS: INSULIN SLIDING SCALE (NOVOLOG) 1 VIAL SQ SCH ×4 (06:16→21:31)
[2017-12-29] MEDS ORDERED: PT OWN MED DRAWER 7, Y5N ONE ×2 (11:02→19:42)
--- NOTE | 2017-12-29 12:30 | EKG ---
Test Reason : Blood Pressure : / mmHG Vent. Rate : 089 BPM Atrial Rate : 089 BPM P-R Int : 164 ms QRS Dur : 142 ms QT Int : 448 ms P-R-T Axes : 036 -14 -02 degrees QTc Int : 545 ms NORMAL SINUS RHYTHM RIGHT BUNDLE BRANCH BLOCK POSSIBLE INFERIOR INFARCT (CITED ON OR BEFORE 08-FEB-2010) T WAVE ABNORMALITY, CONSIDER LATERAL ISCHEMIA ABNORMAL ECG WHEN COMPARED WITH ECG OF 27-DEC-2017 11:28, PREMATURE VENTRICULAR COMPLEXES ARE NO LONGER PRESENT Confirmed by RAVIN VALVERDE MD ([id number]) on 12/29/2017 12:29:48 PM Referred By: Confirmed By:RAVIN VALVERDE MD
--- NOTE | 2017-12-29 12:49 | EKG ---
Test Reason : Blood Pressure : / mmHG Vent. 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
[2017-12-29] MEDS: TAMSULOSIN HCL 0.4 MG CAP.ER.24H (FP) PO SCH (14:46)
[2017-12-29] MEDS: POTASSIUM CHLORIDE TABS 20 MEQ TABLET.ER (FP) PO SCH (14:47)
[2017-12-29] MEDS: metoPROLOL SUCCINATE 25 MG TAB.SR.24H (FP) PO SCH (14:47)
[2017-12-29] MEDS: ASPIRIN 81 MG CHEWABLE TABLETS PO SCH (14:47)
[2017-12-29] MEDS: TORSEMIDE 100 MG TABLET PO SCH (14:48)
--- NOTE | 2017-12-29 15:53 | PN ---
Progress Note (short form) - Note Progress Note: CC: BLE pain S: sx's improving. no cp, palps, sob, dizziness, le edema. Current Medications Aspirin (Asa -) 81 mg PO DAILY [facility] Last Admin: 12/29/17 14:47 Dose: 81 mg Atorvastatin Calcium (Lipitor -) 40 mg PO HS [facility] Last Admin: 12/28/17 22:30 Dose: 40 mg Carbidopa/Levodopa (Sinemet *Cr* 50/200 -) 1 combo PO TID [facility] Last Admin: 12/29/17 14:47 Dose: 1 combo Donepezil HCl (Aricept -) 10 mg PO HS [facility] Last Admin: 12/28/17 22:31 Dose: 10 mg Heparin Sodium (Porcine) (Heparin -) 5,000 unit SQ TID [facility] Last Admin: 12/29/17 14:54 Dose: 5,000 unit Insulin Aspart (Novolog Vial Sliding Scale -) 1 vial SQ [facility] PRN Reason: Protocol Last Admin: 12/29/17 14:51 Dose: Not Given Metoprolol Succinate (Toprol Xl -) 25 mg PO DAILY [facility] Last Admin: 12/29/17 14:47 Dose: 25 mg Potassium Chloride (K-Dur -) 20 meq PO DAILY [facility] Last Admin: 12/29/17 14:47 Dose: 20 meq Tamsulosin HCl (Flomax -) 0.4 mg PO DAILY@0830 [facility] Last Admin: 12/29/17 14:46 Dose: 0.4 mg Torsemide (Demadex -) 100 mg PO DAILY [facility] Last Admin: 12/29/17 14:48 Dose: 100 mg Physical Exam Vital Signs: Vital Signs - 24 hr 12/28/17 12/28/17 12/28/17 18:00 19:00 22:00 Temperature 100.1 F H 99.2 F Pulse Rate 90 85 Respiratory 20 20 20 Rate Blood Pressure 120/57 127/66 O2 Sat by Pulse 98 Oximetry (%) 12/29/17 12/29/17 12/29/17 02:00 03:00 06:00 Temperature 99.0 F 98.5 F Pulse Rate 90 88 Respiratory 20 20 20 Rate Blood Pressure 132/73 132/70 O2 Sat by Pulse 98 Oximetry (%) 12/29/17 12/29/17 12/29/17 10:00 11:00 14:33 Temperature 99.1 F 97.7 F Pulse Rate 88 91 H Respiratory 16 18 Rate Blood Pressure 128/70 133/85 O2 Sat by Pulse 96 Oximetry (%) Intake & Output 12/27/17 12/28/17 12/29/17 12/30/17 07:59 07:59 07:59 07:59 Intake Total 120 1530 550 Output Total 500 1900 500 Balance -380 -370 50 Weight 165 lb 237 lb 6 oz Constitutional: Yes: No Distress, Calm Eyes: Yes: WNL, Conjunctiva Clear HENT: Yes: WNL Neck: Yes: WNL Cardiovascular: Yes: Regular Rate and Rhythm Respiratory: Yes: CTA Bilaterally Gastrointestinal: Yes: Normal Bowel Sounds Extremities: Yes: WNL Edema: Yes Edema: LLE: 1+, RLE: 1+ Labs: CBC, BMP 12/28/17 06:48 12/28/17 06:48 Imaging - Results EKG: Image Reviewed (Done at 12/27/2017 at 19:19 NSR at 89/min with RBBB and lateral T-wave inversions) Echo 08/2017 focused echo with contrast for wall motion: EF 45-50%. global HK with additional HK of basal inferior wall. can't exclude additional HK of mid- to-distal lat wall and anterior apex. paradoxical/dyssynergistic septal motion c/w post-op status. cath : LVEDP/wedge 10. RA 5, RV 25/5, PA 25-15 mpap 18. CO 3.9, PVR 2.1 dLM 50-60%, pLAD mod disease, fills via ARAUZ, D1 (small) severe diffuse disease. pLCx focal 70-80%, OM1 mod dz, fills via SVG. LPL1, mild dz. pRamus 90 -95%, fills via SVG. pRCA 30-50%, mRCA 70-80%, AV continuation 90-95%. Patent arauz to lad, [id number]. Total occlusion of svg-rca/rpda. EF 50% with mild hk of diaphragmatic and anterolateral wall. Assessment/Plan 82 yo male with HTN, CAD s/p CABG, NIDDM, osteo of left foot and Parkinson's Dementia who p/w bilateral leg pain and elevated BNP 1) Elevated BNP/known ischemic cardiomyopathy -Edema and CXR with pulmonary venous congestion -Started on Torsemide 100mg daily here, con't. Patient outpatient torsemide dose had recently been decreased to 60 mg/day. May need to uptitrate home regimen to 80 mg vs. 100 mg daily on d/c. Reassess bmp tomorrow afer getting [id number] mg daily x 2. -Trop negative and no DVT on duplex -echo pending 2) CAD -S/p CABG. recent cath in october with residual disease (medically managed). -Stable without ischemic symptoms 3) HTN -Well controlled -Continue outpatient antihypertensive regimen 4) DM -Primary team recs 5) LE pain - - MRI november couldn't exclude osteo of left toe. s/p abx course at that time. LE duplex ultrasound negative for DVT. surgery following.
--- NOTE | 2017-12-29 17:41 | PN ---
Physical Exam: SUBJECTIVE: Patient seen and examined OBJECTIVE: Vital Signs Period Temp Pulse Resp BP Sys/Franco Pulse Ox Last 24 Hr 97.7 F-100.1 F 85-91 16-20 120-133/57-85 96-98 GENERAL: The patient is awake, alert, and fully oriented, in no acute distress. LUNGS: Breath sounds equal, clear to auscultation bilaterally, no wheezes, no crackles, no accessory muscle use. HEART: Regular rate and rhythm, S1, S2 ABDOMEN: Soft, nontender, nondistended, normoactive bowel sounds, no guarding, no rebound EXTREMITIES: 3+bilateral lower extremity edema; tenderness both ankles and feet NEUROLOGICAL: Cranial nerves II through XII grossly intact. Normal speech, gait not observed. CBCD WBC 6.1 K/mm3 (4.0-10.0) 12/28/17 06:48 RBC 4.02 M/mm3 (4.00-5.60) 12/28/17 06:48 Hgb 12.1 GM/dL (11.7-16.9) 12/28/17 06:48 Hct 35.1 % (35.4-49) L 12/28/17 06:48 MCV 87.4 fl (80-96) 12/28/17 06:48 MCHC 34.5 g/dl (32.0-35.9) 12/28/17 06:48 RDW 14.5 % (11.9-15.9) 12/28/17 06:48 Plt Count 164 K/MM3 (134-434) 12/28/17 06:48 MPV 8.2 fl (7.5-11.1) 12/28/17 06:48 CMP Sodium 141 mmol/L (136-145) 12/28/17 06:48 Potassium 3.6 mmol/L (3.5-5.1) 12/28/17 06:48 Chloride 106 mmol/L (98-107) 12/28/17 06:48 Carbon Dioxide 31 mmol/L (21-32) 12/28/17 06:48 Anion Gap 4 (8-16) L 12/28/17 06:48 BUN 17 mg/dL (7-18) 12/28/17 06:48 Creatinine 0.9 mg/dL (0.7-1.3) 12/28/17 06:48 Creat Clearance w eGFR > 60 (>60) 12/28/17 06:48 Calcium 8.1 mg/dL (8.5-10.1) L 12/28/17 06:48 Total Bilirubin 1.1 mg/dL (0.2-1.0) H D 12/28/17 06:48 AST 17 U/L (15-37) 12/28/17 06:48 ALT < 6 U/L (12-78) L 12/28/17 06:48 Alkaline Phosphatase 41 U/L (45-117) L D 12/28/17 06:48 Total Protein 5.7 g/dl (6.4-8.2) L 12/28/17 06:48 Albumin 2.7 g/dl (3.4-5.0) L D 12/28/17 06:48 Active Medications Generic Name Dose Route Start Last Admin Trade Name Freq PRN Reason Stop Dose Admin Aspirin 81 mg 12/28/17 10:00 12/29/17 14:47 Asa - PO 81 mg DAILY JESS Administration Atorvastatin Calcium 40 mg 12/28/17 22:00 12/28/17 22:30 Lipitor - PO 40 mg HS JESS Administration Carbidopa/Levodopa 1 combo 12/27/17 22:00 12/29/17 14:47 Sinemet *Cr* 50/200 - PO 1 combo TID JESS Administration Donepezil HCl 10 mg 12/28/17 22:00 12/28/17 22:31 Aricept - PO 10 mg HS JESS Administration Heparin Sodium (Porcine) 5,000 unit 12/27/17 22:00 12/29/17 14:54 Heparin - SQ 5,000 unit TID JESS Administration Insulin Aspart 1 vial 12/27/17 22:00 12/29/17 14:51 Novolog Vial Sliding Scale - SQ Not Given ACHS [facility] Protocol Metoprolol Succinate 25 mg 12/28/17 10:00 12/29/17 14:47 Toprol Xl - PO 25 mg DAILY JESS Administration Potassium Chloride 20 meq 12/28/17 10:00 12/29/17 14:47 K-Dur - PO 20 meq DAILY JESS Administration Tamsulosin HCl 0.4 mg 12/28/17 08:30 12/29/17 14:46 Flomax - PO 0.4 mg DAILY@0830 JESS Administration Torsemide 100 mg 12/28/17 10:00 12/29/17 14:48 Demadex - PO 100 mg DAILY JESS Administration ASSESSMENT/PLAN 82 year-old man with a PMH significant for HTN, CAD s/p CABG x 5v, NIDDM, and possible osteomyelitis of left foot. Placed on observation for bilateral lower extremity edema, pain, and inability to weight bear. r/o CHF Elevated BNP --bilateral lower extremity edema, BNP mildly elevated --lower extremity edema was noted during previous hospitalization in November 2017 but it does not appear there was a cardiac workup --12/29: LV mild to moderately reduced, EF 40-45%, mild to moderate global hypkinesis; RV normal; mild MR; mild AI; mild PI --continue home dose torsemide 100mg for now --strict I&Os, daily weights - first weight was taken today 107.6kg Hypertension --BP stable --continue Toprol XL, Torsemide Coronary artery disease --continue Toprol XL, Lipitor, ASA NIDDM --Novolog sliding scale coverage Possible osteomyelitis left foot Bilateral foot pain --presently off antibiotics --arterial dopplers ordered by Dr. Haider Gait difficulty --patient's , nursing staff, PT staff, and ED resident all report patient is unable to take a step; it is unclear if this is totally attributable to pain --on carbidopa/levodopa --neuro consult for Dr. Alvarado who has seen patient as outpatient FEN Fluids: PO intake adequate Electrolytes: replete as indicated Nutrition: low sodium diabetic DVT prophylaxis: subq heparin Physical therapy Dispo: continues to require observation. Full code. Visit type - Emergency Visit Emergency Visit: Yes ED Registration Date: 12/28/17 Care time: The patient presented to the Emergency Department on the above date and was hospitalized for further evaluation of their emergent condition. - New Patient This patient is new to me today: No - Critical Care Critical Care patient: No
[2017-12-29] MEDS: DONEPEZIL HCL 10 MG TABLET (FP) PO SCH (21:26)
[2017-12-29] MEDS: ATORVASTATIN CA 40 MG TABLET (FP) PO SCH (21:26)
--- NOTE | 2017-12-29 21:50 | CONSULT ---
Consult - text type - Consultation Consultation Note: NEUROLOGY CONSULTATION is greatly appreciated: This 82 yo RH man with h/o HTN, DM, Chol and SHD is s/p CABG x 5. Known to have Parkinson's disease and OMS. Maintained on torsemide, metformin, metoprolol, tamsulosin, ASA, atorvastatin, Sinemet CR 50/200 TID and donepezil 10 mg. Recently admitted with pain in the feet and possible osteomyelitis. Now back with Burning pains in both feet making ambulation impossible. Also interrupting sleep. X Rays neg for osteomyelitis, fracture, etc. CARLO: Feet swollen and tender but NO erythema, wounds. No bruits. NEURO: Awake, alert, remembers me. O x November 2017, [place]. +Glabella Speech fluent. CN II-XII: Normal except intermittent, rhythmic jaw tremor. Motor: Min rest tremor. + Fine, rapid, asynchronous mov'ts of the toes (L>R). Normal strength. + Cogwheel rigidity. Decreased AJ's. Toes downgoing Coord: No FTN dystaxia Sensory: Normal vibration over the feet. Gait: refused by patient. IMP: 1. Mild-Mod OMS without focality 2. Parkinsonism, probably Parkinson's disease. 3. Possible Restless Legs (RLS) associated with PD. SUGGEST: R/O mechanical and infectious etiology Agree with uric acid, B12, ESR, CRP Continue Sinemet CR 50/200 but give TID @ 7, 12, and 5. Add pramipexole 0.125 mg PO TID with Sinemet x 3 days then .25 mg PO TID OOB to chair, elevate, legs, PT for gait with walker. Thank you very much, Abdon Alvarado MD
[2017-12-29] MEDS: PRAMIPEXOLE DIHYDROCHLORIDE 0.125 MG TABLET PO SCH (22:41)
[2017-12-30] MEDS: PRAMIPEXOLE DIHYDROCHLORIDE 0.125 MG TABLET PO SCH ×3 (06:16→16:46)
[2017-12-30] MEDS: INSULIN SLIDING SCALE (NOVOLOG) 1 VIAL SQ SCH ×3 (06:16→16:25)
[2017-12-30] MEDS: HEPARIN NA (PORCINE) 5,000 UNITS/ML 1ML VIAL SQ SCH ×3 (06:16→21:13)
[2017-12-30 08:23] LABS: ALBUMIN 2.8 g/dl (3.4-5.0); ANION GAP 10 (8-16); BLOOD UREA NITROGEN 18 mg/dL (7-18); CALCIUM 8.2 mg/dL (8.5-10.1); CHLORIDE 102 mmol/L (98-107); CO2 26 mmol/L (21-32); CREATININE 1.1 mg/dL (0.7-1.3); GLUCOSE,RANDOM 118 mg/dL (74-106); MAGNESIUM 2.5 mg/dL (1.8-2.4); POTASSIUM 3.6 mmol/L (3.5-5.1); SGOT/AST 29 U/L (15-37); SGPT/ALT < 6 U/L (12-78); SODIUM 138 mmol/L (136-145)
[2017-12-30] MEDS ORDERED: PT OWN MED DRAWER 7, Y5N ONE ×2 (08:49→20:10)
[2017-12-30 08:52] LABS: ALK PHOS 46 U/L (45-117); TOT PROT 6.2 g/dl (6.4-8.2)
[2017-12-30] MEDS: ASPIRIN 81 MG CHEWABLE TABLETS PO SCH (08:59)
[2017-12-30] MEDS: metoPROLOL SUCCINATE 25 MG TAB.SR.24H (FP) PO SCH (08:59)
[2017-12-30] MEDS: POTASSIUM CHLORIDE TABS 20 MEQ TABLET.ER (FP) PO SCH (08:59)
[2017-12-30] MEDS: TAMSULOSIN HCL 0.4 MG CAP.ER.24H (FP) PO SCH (08:59)
[2017-12-30] MEDS: TORSEMIDE 100 MG TABLET PO SCH (09:00)
[2017-12-30] MEDS ORDERED: INSULIN (NOVOLOG) ASPART 100 UNITS/ML 10ML VIAL ONE ×2 (11:12→20:10)
[2017-12-30] MEDS ORDERED: COLCHICINE 0.6 MG TABLET (FP) PO ONE ×2 (12:38→13:40)
--- NOTE | 2017-12-30 12:41 | PN ---
Physical Exam: SUBJECTIVE: Patient seen and examined OBJECTIVE: Vital Signs Period Temp Pulse Resp BP Sys/Franco Pulse Ox Last 24 Hr 97.7 F-99.0 F 70-104 18-18 103-137/43-85 98-98 GENERAL: The patient is awake, alert, and fully oriented, in no acute distress. LUNGS: Breath sounds equal, clear to auscultation bilaterally, no wheezes, no crackles, no accessory muscle use. HEART: Regular rate and rhythm, S1, S2 ABDOMEN: Soft, nontender, nondistended, normoactive bowel sounds, no guarding, no rebound EXTREMITIES: 2-3+bilateral lower extremity edema; tenderness both ankles and feet NEUROLOGICAL: Cranial nerves II through XII grossly intact. Normal speech, gait not observed. Laboratory Results - last 24 hr 12/28/17 12/28/17 12/29/17 06:53 06:58 16:36 ESR Sodium Potassium Chloride Carbon Dioxide Anion Gap BUN Creatinine Creat Clearance w eGFR POC Glucometer 107 125 116 Random Glucose Uric Acid Calcium Magnesium Total Bilirubin AST ALT Alkaline Phosphatase C-Reactive Protein Total Protein Albumin Vitamin B12 12/29/17 12/30/17 12/30/17 21:29 06:00 06:00 ESR Sodium 138 Potassium 3.6 Chloride 102 Carbon Dioxide 26 Anion Gap 10 BUN 18 Creatinine 1.1 D Creat Clearance w eGFR > 60 POC Glucometer 119 Random Glucose 118 H Uric Acid 8.0 H D Calcium 8.2 L Magnesium 2.5 H Total Bilirubin 1.0 AST 29 D ALT < 6 L Alkaline Phosphatase 46 C-Reactive Protein 19.0 H Cancelled Total Protein 6.2 L Albumin 2.8 L Vitamin B12 433 Cancelled 12/30/17 12/30/17 12/30/17 06:00 06:11 11:15 ESR 85 H Sodium Potassium Chloride Carbon Dioxide Anion Gap BUN Creatinine Creat Clearance w eGFR POC Glucometer 123 138 Random Glucose Uric Acid Calcium Magnesium Total Bilirubin AST ALT Alkaline Phosphatase C-Reactive Protein Total Protein Albumin Vitamin B12 Active Medications Generic Name Dose Route Start Last Admin Trade Name Freq PRN Reason Stop Dose Admin Aspirin 81 mg 12/28/17 10:00 12/30/17 08:59 Asa - PO 81 mg DAILY JESS Administration Atorvastatin Calcium 40 mg 12/28/17 22:00 12/29/17 21:26 Lipitor - PO 40 mg HS JESS Administration Carbidopa/Levodopa 1 combo 12/30/17 12:00 12/30/17 11:56 Sinemet *Cr* 50/200 - PO 01/02/18 12:01 1 combo 0700,1200,1700 JESS Administration Colchicine 1.2 mg 12/30/17 12:38 Colcrys - PO 12/30/17 12:39 ONCE ONE Donepezil HCl 10 mg 12/28/17 22:00 12/29/17 21:26 Aricept - PO 10 mg HS JESS Administration Heparin Sodium (Porcine) 5,000 unit 12/27/17 22:00 12/30/17 06:16 Heparin - SQ 5,000 unit TID JESS Administration Insulin Aspart 1 vial 12/27/17 22:00 12/30/17 11:28 Novolog Vial Sliding Scale - SQ Not Given ACHS [facility] Protocol Metoprolol Succinate 25 mg 12/28/17 10:00 12/30/17 08:59 Toprol Xl - PO 25 mg DAILY JESS Administration Potassium Chloride 20 meq 12/28/17 10:00 12/30/17 08:59 K-Dur - PO 20 meq DAILY JESS Administration Pramipexole Dihydrochloride 0.125 mg 12/30/17 12:00 12/30/17 11:55 Mirapex - PO 01/02/18 12:01 0.125 mg 0700,1200,1700 JESS Administration Pramipexole Dihydrochloride 0.25 mg 01/02/18 17:00 Mirapex - PO 0700,1200,1700 JESS Tamsulosin HCl 0.4 mg 12/28/17 08:30 12/30/17 08:59 Flomax - PO 0.4 mg DAILY@0830 JESS Administration Torsemide 100 mg 12/28/17 10:00 12/30/17 09:00 Demadex - PO 100 mg DAILY JESS Administration ASSESSMENT/PLAN 82 year-old man with a PMH significant for HTN, CAD s/p CABG x 5v, NIDDM, and possible osteomyelitis of left foot. Placed on observation for bilateral lower extremity edema, pain, and inability to weight bear. Systolic heart failure, newly diagnosed --12/29: LV mild to moderately reduced, EF 40-45%, mild to moderate global hypkinesis; RV normal; mild MR; mild AI; mild PI --bilateral lower extremity edema, BNP mildly elevated; CXR clear --today is second dose of torsemide 100mg, reassess dose tomorrow --strict I&Os, daily weights - first weight was taken today 107.6kg (use same lift scale every day) Hypertension --BP stable --continue Toprol XL, Torsemide Coronary artery disease --continue Toprol XL, Lipitor, ASA NIDDM --Novolog sliding scale coverage Possible osteomyelitis left foot Bilateral foot pain --presently off antibiotics --arterial dopplers ordered by Dr. 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 Alvarado --continue carbidopa/levodopa; add pramipexole 0.125mg TID for 3 days, then 0.25mg TID thereafter --all dosing to be done at 7, 12, 5 Gout flare --Colchicine 1.2mg and 0.6mg given --continue to monitor Gait Instability --patient's , nursing staff, PT staff, and ED resident all report patient is unable to take a step --likely multifactorial: Parkinsonism +/- organic brain syndrome +/- bilateral foot pain/osteo +/- lower extremity edema from CHF +/- gout flare --needs rehab placement FEN Fluids: PO intake adequate Electrolytes: replete as indicated Nutrition: low sodium diabetic DVT prophylaxis: subq heparin Physical therapy Dispo: continues to require inpatient care. SW working on SNF placement, agrees. Full code. Visit type - Emergency Visit Emergency Visit: Yes ED Registration Date: 12/28/17 Care time: The patient presented to the Emergency Department on the above date and was hospitalized for further evaluation of their emergent condition. - New Patient This patient is new to me today: No - Critical Care Critical Care patient: No
--- NOTE | 2017-12-30 13:42 | PN ---
Progress Note (short form) - Note Progress Note: CC: BLE pain S: LE pain improving. no cp, palps, sob, dizziness, le edema. Current Medications Aspirin (Asa -) 81 mg PO DAILY [facility] Last Admin: 12/30/17 08:59 Dose: 81 mg Atorvastatin Calcium (Lipitor -) 40 mg PO HS [facility] Last Admin: 12/29/17 21:26 Dose: 40 mg Carbidopa/Levodopa (Sinemet *Cr* 50/200 -) 1 combo PO 0700,1200,1700 [facility] Stop: 01/02/18 12:01 Last Admin: 12/30/17 11:56 Dose: 1 combo Donepezil HCl (Aricept -) 10 mg PO HS [facility] Last Admin: 12/29/17 21:26 Dose: 10 mg Heparin Sodium (Porcine) (Heparin -) 5,000 unit SQ TID [facility] Last Admin: 12/30/17 13:03 Dose: 5,000 unit Insulin Aspart (Novolog Vial Sliding Scale -) 1 vial SQ ACHS [facility] PRN Reason: Protocol Last Admin: 12/30/17 11:28 Dose: Not Given Metoprolol Succinate (Toprol Xl -) 25 mg PO DAILY [facility] Last Admin: 12/30/17 08:59 Dose: 25 mg Potassium Chloride (K-Dur -) 20 meq PO DAILY [facility] Last Admin: 12/30/17 08:59 Dose: 20 meq Potassium Chloride (K-Dur -) 40 meq PO ONCE ONE Stop: 12/30/17 14:01 Pramipexole Dihydrochloride (Mirapex -) 0.125 mg PO 0700,1200,1700 [facility] Stop: 01/02/18 12:01 Last Admin: 12/30/17 11:55 Dose: 0.125 mg Pramipexole Dihydrochloride (Mirapex -) 0.25 mg PO 0700,1200,1700 [facility] Tamsulosin HCl (Flomax -) 0.4 mg PO DAILY@0830 [facility] Last Admin: 12/30/17 08:59 Dose: 0.4 mg Torsemide (Demadex -) 100 mg PO DAILY [facility] Last Admin: 12/30/17 09:00 Dose: 100 mg Physical Exam Vital Signs: Vital Signs - 24 hr 12/29/17 12/29/17 12/29/17 14:33 19:00 23:00 Temperature 97.7 F 98.8 F 98.3 F Pulse Rate 91 H 96 H 104 H Respiratory 18 18 18 Rate Blood Pressure 133/85 113/61 120/68 O2 Sat by Pulse 98 Oximetry (%) 12/30/17 12/30/17 12/30/17 02:49 03:00 07:00 Temperature 99.0 F 97.9 F Pulse Rate 91 H 89 Respiratory 18 18 18 Rate Blood Pressure 103/43 109/57 O2 Sat by Pulse 98 Oximetry (%) 12/30/17 09:50 Temperature 97.9 F Pulse Rate 70 Respiratory 18 Rate Blood Pressure 137/72 O2 Sat by Pulse Oximetry (%) Intake & Output 12/28/17 12/29/17 12/30/17 12/31/17 07:59 07:59 07:59 07:59 Intake Total 120 1530 850 Output Total 500 1900 2400 Balance -380 -370 -1550 Weight 165 lb 237 lb 6 oz Constitutional: Yes: No Distress, Calm Eyes: Yes: WNL, Conjunctiva Clear HENT: Yes: WNL Neck: Yes: WNL Cardiovascular: Yes: Regular Rate and Rhythm, nl s1, s2. no mrg. JVD flat. Respiratory: Yes: CTA Bilaterally Gastrointestinal: Yes: Normal Bowel Sounds Extremities: Yes: WNL Edema: No Labs: CBC, BMP 12/28/17 06:48 12/30/17 06:00 Laboratory Tests 12/30/17 06:00 Magnesium 2.5 H Albumin 2.8 L Imaging - Results EKG: Image Reviewed (Done at 12/27/2017 at 19:19 NSR at 89/min with RBBB and lateral T-wave inversions) echo 12/2017: mild-mod dec LV fn. EF 40-45%. (global). nl rv size/fn. 1+ ar , 1+ mac/mr. Assessment/Plan 82 yo male with HTN, ischemic cardiomyopathy, CAD s/p CABG, NIDDM, osteo of left foot and Parkinson's Dementia who p/w bilateral leg pain and elevated BNP 1) Elevated BNP/known ischemic cardiomyopathy -Edema and CXR with pulmonary venous congestion -Would continue Torsemide 100mg daily and reassess. Patient torsemide dose had been decreased to 60 mg/day recently as outpatient (previously on 100 mg twice a week and 50 mg the other days). Con't to reassess volume status on torsemide 100 mg/day. currently remains euvolemic. If begins to look dry can decrease to 80 mg daily. - daily bmp, weights, i/o's. lyte repletion prn. -Trop negative and no DVT on duplex -echo as above. 2) CAD -S/p CABG. Recent cath with residual disease (medically managed). -Stable without ischemic symptoms -con't asa, statin 3) HTN -Well controlled -Continue outpatient antihypertensive regimen 4) DM -Primary team recs 5) LE pain - Per report, previous hx of osteo of left alicia. LE duplex ultrasound negative for DVT. surgery following.
[2017-12-30] MEDS ORDERED: POTASSIUM CHLORIDE TABS 10 MEQ TABLET.ER (FP) PO ONE (14:00)
--- NOTE | 2017-12-30 15:52 | PN ---
Progress Note (short form) - Note Progress Note: Podiatry F/U: Seen/evaluated at bedside with patient's , denies F/V/N/C/SOB/CP. Afebrile , VSS. Per patient's , patient is still having trouble walking. He is able to stand, however cannot take the steps to walk. THe patient was scheduled for arterial studies in the wound healing center in the winter, however the patient's was unable to get him to the appointment. His dementia and parkinson's symptoms are mostly unchanged, as per the . ADELFO: Pedal pulses 1/4, TG wnl, CFT brisk to all toes. Moderate tenderness to palpation of midfoot, ankle, 2nd digit bilateral foot. There are no open wounds , no erythema, no cellulitis, no signs of active infection. Moderate tenderness on range of motion. There is negative anterior drawer of the ankle , stress inversion is negative with guarding and restricted motion. Uric Acid: 8.0 Imp: 82 year old DM M with bilateral foot pain, weakness, gait instability 1. Uric acid is elevated, can trial with colchicine tx and see if that improves symptoms. 2. Will arrange for outpatient f/u for arterial studies. 3. Needs close follow up with Neurology. 4. Agree with rehab placement for gait training. 5. Will f/u with me in wound healing center in 1-2 weeks. Joanna Haider DPM
[2017-12-30] MEDS: DONEPEZIL HCL 10 MG TABLET (FP) PO SCH (21:13)
[2017-12-30] MEDS: ATORVASTATIN CA 40 MG TABLET (FP) PO SCH (21:13)
[2017-12-31] MEDS: INSULIN SLIDING SCALE (NOVOLOG) 1 VIAL SQ SCH ×5 (00:06→21:26)
[2017-12-31] MEDS ORDERED: PT OWN MED DRAWER 7, Y5N ONE ×2 (05:51→06:50)
[2017-12-31] MEDS: PRAMIPEXOLE DIHYDROCHLORIDE 0.125 MG TABLET PO SCH ×2 (06:39→11:27)
[2017-12-31] MEDS: HEPARIN NA (PORCINE) 5,000 UNITS/ML 1ML VIAL SQ SCH ×3 (06:39→21:26)
[2017-12-31] MEDS: TAMSULOSIN HCL 0.4 MG CAP.ER.24H (FP) PO SCH (08:10)
[2017-12-31] MEDS: ASPIRIN 81 MG CHEWABLE TABLETS PO SCH (09:19)
[2017-12-31] MEDS: metoPROLOL SUCCINATE 25 MG TAB.SR.24H (FP) PO SCH (09:19)
[2017-12-31] MEDS: POTASSIUM CHLORIDE TABS 20 MEQ TABLET.ER (FP) PO SCH (09:19)
[2017-12-31] MEDS: TORSEMIDE 100 MG TABLET PO SCH (09:19)
[2017-12-31] MEDS ORDERED: ACETAMINOPHEN 650 MG/20.3 ML ORAL SOLUTION (CUPS) PO PRN (11:05)
--- NOTE | 2017-12-31 14:48 | PN ---
Physical Exam: SUBJECTIVE: Patient seen and examined. He says his pain is worse today, he dose not want to walk with PT OBJECTIVE: Vital Signs Period Temp Pulse Resp BP Sys/Franco Pulse Ox Last 24 Hr 97.2 F-98.6 F 70-75 18-18 107-142/58-77 96-98 PE Neuro: alert, awake, cn 2-12intact Pulm: CTAB CV: s1 s2 rrr no mrg Abd: s nt nd + bs ExT: b/l lower ext tenderness, redness overlying r bunion, swelling Laboratory Results - last 24 hr 12/30/17 12/30/17 12/31/17 16:07 20:57 06:10 POC Glucometer 140 117 114 12/31/17 11:10 POC Glucometer 122 Active Medications Generic Name Dose Route Start Last Admin Trade Name Freq PRN Reason Stop Dose Admin Acetaminophen 650 mg 12/31/17 11:05 12/31/17 11:27 Tylenol Oral Solution - PO 650 mg Q4H PRN Administration PAIN LEVEL 1-5 Aspirin 81 mg 12/28/17 10:00 12/31/17 09:19 Asa - PO 81 mg DAILY JESS Administration Atorvastatin Calcium 40 mg 12/28/17 22:00 12/30/17 21:13 Lipitor - PO 40 mg HS JESS Administration Carbidopa/Levodopa 1 combo 12/30/17 12:00 12/31/17 11:26 Sinemet *Cr* 50/200 - PO 01/02/18 12:01 1 combo 0700,1200,1700 JESS Administration Donepezil HCl 10 mg 12/28/17 22:00 12/30/17 21:13 Aricept - PO 10 mg HS JESS Administration Heparin Sodium (Porcine) 5,000 unit 12/27/17 22:00 12/31/17 13:35 Heparin - SQ 5,000 unit TID JESS Administration Insulin Aspart 1 vial 12/31/17 11:06 Novolog Vial Sliding Scale - SQ ACHS [facility] Protocol Metoprolol Succinate 25 mg 12/28/17 10:00 12/31/17 09:19 Toprol Xl - PO 25 mg DAILY JESS Administration Potassium Chloride 20 meq 12/28/17 10:00 12/31/17 09:19 K-Dur - PO 20 meq DAILY JESS Administration Pramipexole Dihydrochloride 0.125 mg 12/30/17 12:00 12/31/17 11:27 Mirapex - PO 01/02/18 12:01 0.125 mg 0700,1200,1700 JESS Administration Pramipexole Dihydrochloride 0.25 mg 01/02/18 17:00 Mirapex - PO 0700,1200,1700 JESS Tamsulosin HCl 0.4 mg 12/28/17 08:30 12/31/17 08:10 Flomax - PO 0.4 mg DAILY@0830 JESS Administration Torsemide 100 mg 12/28/17 10:00 12/31/17 09:19 Demadex - PO 100 mg DAILY JESS Administration Imaging: ECHO 12/29: LV mild to moderately reduced, EF 40-45%, mild to moderate global hypkinesis; RV normal; mild MR; mild AI; mild PI Assessment: 82 year old man with a PMH significant for HTN, CAD s/p CABG x 5v, NIDDM, and possible osteomyelitis of left foot. Placed on observation for bilateral lower extremity edema, pain, and inability to weight bear. Plan: 1. Systolic heart failure, newly diagnosed - Maintain increased Torsemide 100mg daily - Daily weight, not done today 2. Hypertension - Continue Toprol XL, Torsemide 3. CAD - Continue Toprol XL, Lipitor, ASA 4. DM II - ISS, BGM ACHS 5. Bilateral foot pain/Hx osteomyelitis left foot - No acute infectious signs - Arterial dopplers ordered by Dr. 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 Acute gout - Given colchicine regimen - Consider allopurinol initiation with PCP for prevention of future flares 8. Gait Instability - Likely multifactorial: Parkinsonism +/- organic brain syndrome +/- bilateral foot pain/osteo +/- lower extremity edema from CHF +/- gout flare - Needs rehab placement 9. DVT ppx - subq heparin Dispo: continues to require inpatient care. SW working on SNF placement, agrees. Full code. Visit type - Emergency Visit Emergency Visit: Yes ED Registration Date: 12/28/17 Care time: The patient presented to the Emergency Department on the above date and was hospitalized for further evaluation of their emergent condition. - New Patient This patient is new to me today: Yes Date on this admission: 12/31/17 - Critical Care Critical Care patient: No
--- NOTE | 2017-12-31 16:10 | PN ---
Progress Note (short form) - Note Progress Note: CC: BLE pain S: LE pain improving, still with focal tenderness over right big toe and left 2nd toe. no cp, palps, sob, dizziness, le edema. Current Medications Acetaminophen (Tylenol Oral Solution -) 650 mg PO Q4H PRN PRN Reason: PAIN LEVEL 1-5 Last Admin: 12/31/17 11:27 Dose: 650 mg Aspirin (Asa -) 81 mg PO DAILY [facility] Last Admin: 12/31/17 09:19 Dose: 81 mg Atorvastatin Calcium (Lipitor -) 40 mg PO HS [facility] Last Admin: 12/30/17 21:13 Dose: 40 mg Carbidopa/Levodopa (Sinemet *Cr* 50/200 -) 1 combo PO 0700,1200,1700 [facility] Stop: 01/02/18 12:01 Last Admin: 12/31/17 11:26 Dose: 1 combo Donepezil HCl (Aricept -) 10 mg PO [facility] Last Admin: 12/30/17 21:13 Dose: 10 mg Gabapentin (Neurontin -) 100 mg PO BID JESS Gabapentin (Neurontin -) 100 mg PO HS [facility] Stop: 01/01/18 21:59 Heparin Sodium (Porcine) (Heparin -) 5,000 unit SQ TID [facility] Last Admin: 12/31/17 13:35 Dose: 5,000 unit Insulin Aspart (Novolog Vial Sliding Scale -) 1 vial SQ ACHS [facility] PRN Reason: Protocol Metoprolol Succinate (Toprol Xl -) 25 mg PO DAILY [facility] Last Admin: 12/31/17 09:19 Dose: 25 mg Potassium Chloride (K-Dur -) 20 meq PO DAILY [facility] Last Admin: 12/31/17 09:19 Dose: 20 meq Pramipexole Dihydrochloride (Mirapex -) 0.125 mg PO 0700,1200,1700 [facility] Stop: 01/02/18 12:01 Last Admin: 12/31/17 11:27 Dose: 0.125 mg Pramipexole Dihydrochloride (Mirapex -) 0.25 mg PO 0700,1200,1700 [facility] Tamsulosin HCl (Flomax -) 0.4 mg PO DAILY@0830 [facility] Last Admin: 12/31/17 08:10 Dose: 0.4 mg Torsemide (Demadex -) 100 mg PO DAILY [facility] Last Admin: 12/31/17 09:19 Dose: 100 mg Physical Exam Vital Signs: Vital Signs - 24 hr 12/30/17 12/30/17 12/30/17 15:48 18:31 21:00 Temperature 97.7 F 97.2 F L Pulse Rate 70 70 Respiratory 18 18 18 Rate Blood Pressure 116/58 107/61 O2 Sat by Pulse 98 Oximetry (%) 12/31/17 12/31/17 12/31/17 02:00 09:00 10:00 Temperature 97.7 F 98.6 F Pulse Rate 75 72 Respiratory 18 18 Rate Blood Pressure 119/61 142/77 O2 Sat by Pulse 96 Oximetry (%) 12/31/17 14:47 Temperature 97.9 F Pulse Rate 70 Respiratory 20 Rate Blood Pressure 130/68 O2 Sat by Pulse Oximetry (%) Intake & Output 12/29/17 12/30/17 12/31/17 01/01/18 07:59 07:59 07:59 07:59 Intake Total 1530 850 900 Output Total 1900 2400 2400 Balance -370 -1550 -1500 Weight 237 lb 6 oz Constitutional: Yes: No Distress, Calm Eyes: Yes: WNL, Conjunctiva Clear HENT: Yes: WNL Neck: Yes: WNL Cardiovascular: Yes: Regular Rate and Rhythm, nl s1, s2. no mrg. JVD flat. Respiratory: Yes: CTA Bilaterally Gastrointestinal: Yes: Normal Bowel Sounds Extremities: tenderness over right big toe and left 2nd toe with overlying erythema Edema: No Labs: CBC, BMP 12/28/17 06:48 12/30/17 06:00 Imaging - Results EKG: Image Reviewed (Done at 12/27/2017 at 19:19 NSR at 89/min with RBBB and lateral T-wave inversions) echo 12/2017: mild-mod dec LV fn. EF 40-45%. (global). nl rv size/fn. 1+ ar , 1+ mac/mr. Echo 08/2017 focused echo with contrast for wall motion: EF 45-50%. global HK with additional HK of basal inferior wall. can't exclude additional HK of mid- to-distal lat wall and anterior apex. paradoxical/dyssynergistic septal motion c/w post-op status. cath : LVEDP/wedge 10. RA 5, RV 25/5, PA 25-15 mpap 18. CO 3.9, PVR 2.1 dLM 50-60%, pLAD mod disease, fills via ARAUZ, D1 (small) severe diffuse disease. pLCx focal 70-80%, OM1 mod dz, fills via SVG. LPL1, mild dz. pRamus 90 -95%, fills via SVG. pRCA 30-50%, mRCA 70-80%, AV continuation 90-95%. Patent arauz to lad, [id number]-[id number]-if1. Total occlusion of svg-rca/rpda. EF 50% with mild hk of diaphragmatic and anterolateral wall. Assessment/Plan 82 yo male with HTN, ischemic cardiomyopathy, CAD s/p CABG, NIDDM, osteo of left foot and Parkinson's Dementia who p/w bilateral foot pain and elevated BNP 1) Elevated BNP/known ischemic cardiomyopathy -Edema and CXR with pulmonary venous congestion -Would continue Torsemide 100mg daily and reassess. Patient torsemide dose had been decreased to 60 mg/day recently as outpatient (previously on 100 mg twice a week and 50 mg the other days). Con't to reassess volume status on torsemide 100 mg/day. currently remains euvolemic. If begins to look dry can decrease to 80 mg daily. - daily bmp, weights, i/o's. lyte repletion prn. -Trop negative and no DVT on duplex -echo as above. 2) CAD -S/p CABG. Recent cath with residual disease (medically managed). -Stable without ischemic symptoms -con't asa, statin 3) HTN -Well controlled -Continue outpatient antihypertensive regimen 4) DM -Primary team recs 5) LE pain - MRI november couldn't exclude osteo of left toe. s/p abx course at that time. Now with elevated ESR, CRP, uric acid. ? gout. colchicine started. Gabapentin started for possible neuropathy. neuro, podiatry, following. - LE duplex ultrasound negative for DVT.
[2017-12-31] MEDS: PRAMIPEXOLE DIHYDROCHLORIDE 0.25 MG TABLET PO SCH (17:03)
[2017-12-31 19:47] LABS: ANION GAP 7 (8-16); BLOOD UREA NITROGEN 19 mg/dL (7-18); CALCIUM 8.1 mg/dL (8.5-10.1); CHLORIDE 102 mmol/L (98-107); CO2 31 mmol/L (21-32); CREATININE 0.9 mg/dL (0.7-1.3); GLUCOSE,RANDOM 108 mg/dL (74-106); POTASSIUM 3.7 mmol/L (3.5-5.1); SODIUM 140 mmol/L (136-145)
[2017-12-31] MEDS: ATORVASTATIN CA 40 MG TABLET (FP) PO SCH (21:26)
[2017-12-31] MEDS: DONEPEZIL HCL 10 MG TABLET (FP) PO SCH (21:26)
[2017-12-31] MEDS ORDERED: GABAPENTIN 100 MG CAPSULE (FP) PO SCH (22:00)
[2018-01-01] MEDS: INSULIN SLIDING SCALE (NOVOLOG) 1 VIAL SQ SCH ×3 (06:10→16:15)
[2018-01-01] MEDS: HEPARIN NA (PORCINE) 5,000 UNITS/ML 1ML VIAL SQ SCH ×2 (06:10→14:51)
[2018-01-01] MEDS: PRAMIPEXOLE DIHYDROCHLORIDE 0.25 MG TABLET PO SCH ×3 (06:13→16:17)
[2018-01-01 08:20] LABS: ANION GAP 7 (8-16); BLOOD UREA NITROGEN 19 mg/dL (7-18); CALCIUM 8.3 mg/dL (8.5-10.1); CHLORIDE 102 mmol/L (98-107); CO2 30 mmol/L (21-32); GLUCOSE,RANDOM 117 mg/dL (74-106); POTASSIUM 3.5 mmol/L (3.5-5.1); SODIUM 139 mmol/L (136-145)
[2018-01-01] MEDS: TAMSULOSIN HCL 0.4 MG CAP.ER.24H (FP) PO SCH (09:18)
[2018-01-01] MEDS: metoPROLOL SUCCINATE 25 MG TAB.SR.24H (FP) PO SCH (09:18)
[2018-01-01] MEDS: POTASSIUM CHLORIDE TABS 20 MEQ TABLET.ER (FP) PO SCH (09:18)
[2018-01-01] MEDS: ASPIRIN 81 MG CHEWABLE TABLETS PO SCH (09:18)
[2018-01-01] MEDS ORDERED: PT OWN MED DRAWER 7, Y5N ONE (09:32)
[2018-01-01] MEDS: TORSEMIDE 100 MG TABLET PO SCH (09:34)
[2018-01-01] MEDS ORDERED: GABAPENTIN 100 MG CAPSULE (FP) PO SCH (10:00)
[2018-01-01 15:09] VITALS: BP 116/64; PULSE 69; TEMP 97.4
--- NOTE | 2018-01-01 15:11 | DS ---
Physical Exam: SUBJECTIVE: Patient seen and examined. Pain is less today, he ambulated with PT. Saw patient with vascular today. OBJECTIVE: Vital Signs Period Temp Pulse Resp BP Sys/Franco Pulse Ox Last 24 Hr 97.4 F-98.8 F 64-93 18-20 104-145/59-69 94-96 PE Neuro: alert, awake, cn 2-12intact Pulm: CTAB CV: s1 s2 rrr no mrg Abd: s nt nd + bs ExT: b/l lower ext tenderness- improved, redness overlying r bunion- improved/ resolved + dp pulses b/l Laboratory Results - last 24 hr 12/31/17 12/31/17 12/31/17 16:24 17:15 21:24 Sodium 140 Potassium 3.7 Chloride 102 Carbon Dioxide 31 Anion Gap 7 L BUN 19 H Creatinine 0.9 POC Glucometer 139 97 Random Glucose 108 H Calcium 8.1 L TSH 1.95 01/01/18 01/01/18 01/01/18 06:08 06:30 11:51 Sodium 139 Potassium 3.5 Chloride 102 Carbon Dioxide 30 Anion Gap 7 L BUN 19 H Creatinine 1.0 POC Glucometer 132 106 Random Glucose 117 H Calcium 8.3 L [facility] HOSPITAL COURSE: Date of Admission:12/28/17 Date of Discharge: 01/01/18 Minutes to complete discharge: 37 Discharge Summary Reason For Visit: LOCALIZED SWELLING OF BOTH LOWER LEGS Current Active Problems Gait instability (Acute) Localized swelling of both lower legs (Acute) Hospital Course: Initial Hospital Course: This 82 year old male with a PMH significant for HTN, CAD s/p CABG x 5, NIDDM, possible osteomyelitis of left foot, Parkinson's disease and dementia, new CHF, presented with a complaint of bilateral leg pain and swelling and inability to walk or weight bear. Patient had these symptoms for two months, his says one week. Patient was hospitalized from 11/13-11/18 for cellulitis and an MRI on 11/14 showed possible osteo of left foot was sent home with PO augmentin. Patient has been followed by Dr. Haider. Imaging: ECHO 12/29: LV mild to moderately reduced, EF 40-45%, mild to moderate global hypokinesis; RV normal; mild MR; mild AI; mild PI Subsequent Hospital Course/Progress Note/DC summary: Assessment: 82 year old man with a PMH significant for HTN, CAD s/p CABG x 5v, NIDDM, and possible osteomyelitis of left foot admitted with bilateral lower extremity edema, pain, and inability to weight bear. Plan: 1. Systolic heart failure, newly diagnosed - Maintain increased Torsemide 100mg daily - Cardiology follow up 2. Hypertension - Continue Toprol XL, Torsemide 3. CAD - Continue Toprol XL, Lipitor, ASA 4. DM II - Resume levemir - Resume PO metformin 5. 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 Acute gout - Given colchicine x2 - Consider allopurinol initiation with PCP for prevention of future flares 8. Gait Instability - Likely multifactorial: Parkinsonism +/- organic brain syndrome +/- bilateral foot pain/osteo +/- lower extremity edema from CHF +/- gout flare - Rehab placement Dispo: - SNF placement - Continue meds as listed - PCP, podiatry and cardiology, neuro follow up Condition: Stable - Instructions Diet, Activity, Other Instructions: Please return to the ED for any new, persistent, or worsening symptoms. Follow up with your PCP in 2 weeks. Take home medications as directed on discharge medication list New medications have been sent to your pharmacy note new med: Miramex Follow up with Dr. Alvarado neurologist as out pt Follow up with Dr. Willoughby when discharged from rehab facility for further work up Referrals: [facility] [Outside] Jose Haider MD [Staff Physician] - María Gacria MD [Staff Physician] - Rafiq Edwards MD [Primary Care Provider] - Abdon Alvarado MD [Staff Physician] - Disposition: [facility] - Home Medications Comprehensive Discharge Medication List: Ambulatory Orders Metoprolol Succinate [Toprol XL -] 25 mg PO DAILY 12/28/14 Potassium Chloride 20 meq PO DAILY 12/28/14 Tamsulosin HCl 0.4 mg PO DAILY 12/28/14 Aspirin 81 mg PO DAILY 11/13/17 Atorvastatin Ca [Lipitor] 40 mg PO DAILY 11/13/17 Metformin HCl 500 mg PO TID 11/13/17 Donepezil HCl [Aricept] 10 mg PO DAILY 11/14/17 Carbidopa/Levodopa *Cr* 50/200 [Sinemet *Cr* 50/200 -] 1 combo PO 0700,1200, 1700 #90 tablet.er 01/01/18 Gabapentin [Neurontin -] 100 mg PO BID #30 capsule 01/01/18 Pramipexole Dihydrochloride [Mirapex -] 0.25 mg PO 0700,1200,1700 #90 tablet Torsemide [Demadex -] 100 mg PO DAILY #30 tablet 01/01/18 This patient is new to me today: No Emergency Visit: Yes ED Registration Date: 12/28/17 Care time: The patient presented to the Emergency Department on the above date and was hospitalized for further evaluation of their emergent condition. Critical Care patient: No - Discharge Referral Referred to [id number] Yes Physician Referral: Rafiq Mercado MD ([facility])
[2018-01-02] MEDS ORDERED: PRAMIPEXOLE DIHYDROCHLORIDE 0.25 MG TABLET PO SCH (17:00)
== END 2018-01-01 17:09 | DRG 57 ==
LOC: EDBD 11:13 → JER 11:13 → JERBED 18:09 → UNDOADMOB 18:25 → J5S 21:28 → OBSVTOIN 12-28 14:47
PROVIDERS: ADMIT Hospitalist; ATTEND Nurse Practitioner Acute Care
DX: G20 Parkinson's disease (principal); I50.22 Chronic systolic (congestive) heart failure; I11.0 Hypertensive heart disease with heart failure; M10.9 Gout, unspecified; F02.80 Dementia in other diseases classified elsewhere, unspecified severity, without behavioral disturbance, psychotic disturbance, mood disturbance, and anxiety; I25.10 Atherosclerotic heart disease of native coronary artery without angina pectoris; E11.9 Type 2 diabetes mellitus without complications; Z79.84 Long term (current) use of oral hypoglycemic drugs; G25.81 Restless legs syndrome; I45.10 Unspecified right bundle-branch block; N40.0 Benign prostatic hyperplasia without lower urinary tract symptoms; E78.5 Hyperlipidemia, unspecified; Z95.1 Presence of aortocoronary bypass graft; Z96.652 Presence of left artificial knee joint; F09 Unspecified mental disorder due to known physiological condition; I25.5 Ischemic cardiomyopathy; M21.611 Bunion of right foot
CPT/HCPCS: 36415; 71045-TC-FY; 73630-TC-LT; 80048; 80053; 81003; 82607; 82962; 83605; 83735; 83880; 84443; 84484; 84550; 85025; 85610; 85651; 85730; 86140; 87040; 93005; 93010; 93306-TC; 93970-TC; 97116-GP; 97161-GP; 99285-25; G0378; J1644

== ENCOUNTER 2019-04-28 12:30 | Inpatient (IN) | payer OTHER ==
[2019-04-28 12:55] VITALS: BMI 36.8
--- NOTE | 2019-04-28 13:42 | PDOC ---
Documentation entered by Taisha Mckeon SCRIBE, acting as scribe for Allyson Littlejohn MD. Allyson Littlejohn MD: This documentation has been prepared by the Linda kennedy Brenda, SCRIBE, under my direction and personally reviewed by me in its entirety. I confirm that the documentation accurately reflects all work, treatment, procedures, and medical decision making performed by me. History of Present Illness - General Chief Complaint: Shortness of Breath Stated Complaint: SOB Time Seen by Provider: 04/28/19 13:07 History Source: Patient Exam Limitations: No Limitations - History of Present Illness Initial Comments: 04/28/19 13:51 84 yo male with a significant PMH of Afib, DM, HTN, BPH, CAD s/p CABG (2009), who presents to the emergency department with shortness of breath, tachycardia and paleness that lasted 30 minutes, according to . does have exertional dyspnea, orthopnea. no f/c no cough. baseline leg edema. states his heart is racing all of the time. pt went to pcp office today, was found to be diaphoretic and sob, and the office called ambulance for transfer to ED. The also reports that he has been having a heart fast rhythm for over a month now. The patient denies chest pain, headache and dizziness. Denies fever, chills, nausea, vomiting, diarrhea and constipation. Denies any urinary symptoms. Allergies: NKA Past surgical history: Cabbage 01/2010 Social history: unknown if ever smoked. Neuro: Jenny Cardio: Mayuri PCP: Jerry 04/28/19 15:50 04/28/19 15:52 Past History - Past Medical History Allergies/Adverse Reactions: Allergies Allergy/AdvReac Type Severity Reaction Status Date / Time No Known Allergies Allergy Verified 04/28/19 12:55 Home Medications: Ambulatory Orders Potassium Chloride 20 meq PO DAILY 12/28/14 Tamsulosin HCl 0.4 mg PO DAILY 12/28/14 Aspirin 81 mg PO DAILY 11/13/17 Atorvastatin Ca [Lipitor] 20 mg PO DAILY 11/13/17 metFORMIN HCL [Metformin HCl] 500 mg PO BID 11/13/17 Donepezil HCl [Aricept] 10 mg PO DAILY 11/14/17 Carbidopa/Levodopa *Cr* 50/200 [Sinemet *Cr* 50/200 -] 1 combo PO 0700,1200, 1700 #90 tablet.er 01/01/18 Apixaban [Eliquis -] 2.5 mg PO BID 04/28/19 Cholecalciferol (Vitamin D3) [Vitamin D3 -] 50,000 unit PO WEEKLY 04/28/19 Diltiazem HCl [Cartia Xt] 120 mg PO DAILY 04/28/19 Memantine HCl [Namenda -] 5 mg PO BID 04/28/19 Quetiapine Fumarate [Seroquel -] 25 mg PO HS 04/28/19 Torsemide [Demadex -] 20 mg PO DAILY 04/28/19 Anemia: No Asthma: No Cancer: No Cardiac Disorders: Yes (CAD) CVA: No COPD: No CHF: No Dementia: No Diabetes: Yes GI Disorders: No Disorders: Yes (BPH) HTN: Yes Hypercholesterolemia: Yes Liver Disease: No Seizures: No Thyroid Disease: No - Surgical History Cardiac Surgery: Yes (CABG 01/2010) - Immunization History Immunization Up to Date: Yes - Suicide/Smoking/Psychosocial Hx Smoking History: Unknown if ever smoked Have you smoked in the past 12 months: No Hx Alcohol Use: No Drug/Substance Use Hx: No Substance Use Type: None Hx Substance Use Treatment: No Review of Systems - Review of Systems Able to Perform ROS?: Yes Comments:: 04/28/19 13:52 GENERAL/CONSTITUTIONAL: (+)Diaphoresis. No fever. No weakness. HEAD, EYES, EARS, NOSE AND THROAT: No change in vision. No ear pain or discharge. No sore throat. CARDIOVASCULAR: (+0 Shortness of breath. No chest pain. RESPIRATORY: No cough, wheezing, or hemoptysis. GASTROINTESTINAL: No nausea, vomiting, diarrhea or constipation. GENITOURINARY: No dysuria, frequency, or change in urination. MUSCULOSKELETAL: No joint or muscle swelling or pain. No neck or back pain. SKIN: No rash NEUROLOGIC: No headache, vertigo, loss of consciousness, or change in strength/ sensation. ENDOCRINE: No increased thirst. No abnormal weight change. HEMATOLOGIC/LYMPHATIC: No anemia, easy bleeding, or history of blood clots. ALLERGIC/IMMUNOLOGIC: No hives or skin allergy. *Physical Exam - Vital Signs Last Vital Signs Temp Pulse Resp BP Pulse Ox 96.3 F L 120 H 18 109/78 96 08/14/19 13:07 04/28/19 12:30 04/28/19 12:30 04/28/19 12:30 04/28/19 12:30 - Physical Exam Comments: 04/28/19 15:51 awake alert lungs with crackles at bases bilaterally heart irreg tachycardia. abd soft nt nd ext wwp bilat edema. pitting. edema. 2+ dp/ pt pulses bilat. nuero alert oriented x 3. ED Treatment Course - LABORATORY CBC & Chemistry Diagram: 04/28/19 13:44 04/28/19 13:44 - RADIOLOGY Radiology Studies Ordered: Category Date Time Status CHEST X-RAY PORTABLE* [RAD] Stat Radiology 04/28/19 13:07 Completed Medical Decision Making - Medical Decision Making 04/28/19 13:37 84 yo male h/o chf cad cabg htn hld afib here with co palpitations sob, orthopnea and exdertional dyspena. pt was sent by his injection molding engineer for high heart rate. denies cp no f/c no worsening leg edema. has chronic edema. on exam pt with fine crackles at bases, afib with rvr rapid irreg heart rate. bilat leg nonpitting edema. afib with rvr. r/o chf anemia electrolyte abnoramlity mi. plan labs ekg diltiazem for rate control. will call pt injection molding engineer. for admission to telemetry. 04/28/19 15:32 d/w dr edwards, would like admitted to hospitalist. afib with rvr. 04/28/19 15:52 pt bp improved wtih diltiazem to 100's , then returned to 120. borderline bp. 04/28/19 16:12 dW admitting team will admit to tele. *DC/Admit/Observation/Transfer Diagnosis at time of Disposition: Atrial fibrillation with RVR, CHF (congestive heart failure) - Discharge Dispostion Decision to Admit order: Yes - Referrals Referrals: Rafiq Edwards MD [Primary Care Provider] - - Patient Instructions - Post Discharge Activity
[2019-04-28] MEDS ORDERED: dilTIAZem HCL 50 MG/10 ML - 10 ML VIAL IVPUSH ONE ×2 (13:48→15:55)
[2019-04-28] MEDS ORDERED: dilTIAZem HCL 125 MG/25 ML - 25 ML VIAL ONE ×2 (14:00→16:44)
[2019-04-28 14:26] LABS: BASO % 0.8 % (0-2.0); EOS % 1.1 % (0-4.5); HEMOGLOBIN 13.5 GM/dL (11.7-16.9); LYMPH % 20.3 % (8-40); MCH 29.4 pg (25.7-33.7); MCHC 33.6 g/dl (32.0-35.9); MEAN CELL VOLUME 87.6 fl (80-96); MEAN PLT VOLUME 8.3 fl (7.5-11.1); MONO % 9.3 % (3.8-10.2); NEUT % 68.5 % (42.8-82.8); PLATELET COUNT 207 K/MM3 (134-434); RBC 4.57 M/mm3 (4.00-5.60); RDW 15.2 % (11.9-15.9); WHITE BLOOD COUNT 4.9 K/mm3 (4.0-10.0)
[2019-04-28 14:53] LABS: ALBUMIN 3.5 g/dl (3.4-5.0); BILIRUBIN,TOTAL 0.8 mg/dL (0.2-1); BLOOD UREA NITROGEN 25.3 mg/dL (7-18); CALCIUM 8.8 mg/dL (8.5-10.1); CREATININE 1.7 mg/dL (0.55-1.3); N-TERMINAL BNP 10419.8 pg/ml (5-450); POTASSIUM 4.4 mmol/L (3.5-5.1); TOT PROT 6.4 g/dl (6.4-8.2)
--- NOTE | 2019-04-28 16:35 | HP ---
Admitting History and Physical - Primary Care Physician PCP: Rafiq Edwards - Admission Chief Complaint: sent by Dr Vila after seeing in office for c/o SOB & palpitations History of Present Illness: 84 yo male with a significant PMH of AF DM, HTN, BPH, CAD s/p CABG x 5 (2009) , who presents to the ED after being seen in PCP office (Dr Vial) with shortness of breath & palpitations that lasted 30 minutes, according to . Roddy does have ISABEL & orthopnea sleeping w/ 2 pillows. Baseline leg edema that wifes states has been worse over last week. Patient went to PCP office today, and on exam was diaphoretic, pale, & tachycardic. EMS was called for transfer to ED. 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 Cardiovascular: Yes: AFIB, CAD, CHF, HTN - Past Surgical History Past Surgical History: Yes: CABG (2009 x5v), Joint Replacement (Left TKR) - Smoking History Smoking history: Never smoked Have you smoked in the past 12 months: No - Alcohol/Substance Use Hx Alcohol Use: No - Social History Usual Living Arrangement: Yes: With Spouse ADL: Family Assistance Occupation: retired History of Recent Travel: No Home Medications - Allergies Allergies/Adverse Reactions: Allergies Allergy/AdvReac Type Severity Reaction Status Date / Time No Known Allergies Allergy Verified 04/28/19 12:55 - Home Medications Home Medications: Ambulatory Orders Potassium Chloride 20 meq PO DAILY 12/28/14 Tamsulosin HCl 0.4 mg PO DAILY 12/28/14 Aspirin 81 mg PO DAILY 11/13/17 Atorvastatin Ca [Lipitor] 20 mg PO DAILY 11/13/17 metFORMIN HCL [Metformin HCl] 500 mg PO BID 11/13/17 Donepezil HCl [Aricept] 10 mg PO DAILY 11/14/17 Carbidopa/Levodopa *Cr* 50/200 [Sinemet *Cr* 50/200 -] 1 combo PO 0700,1200, 1700 #90 tablet.er 01/01/18 Apixaban [Eliquis -] 2.5 mg PO BID 04/28/19 Cholecalciferol (Vitamin D3) [Vitamin D3 -] 50,000 unit PO WEEKLY 04/28/19 Diltiazem HCl [Cartia Xt] 120 mg PO DAILY 04/28/19 Memantine HCl [Namenda -] 5 mg PO BID 04/28/19 Quetiapine Fumarate [Seroquel -] 25 mg PO HS 04/28/19 Torsemide [Demadex -] 20 mg PO DAILY 04/28/19 Family Disease History - Family Disease History Family History: Unable to Obtain (not know by ) Review of Systems - Review of Systems Constitutional: reports: No Symptoms, Diaphoresis, Lethargy Eyes: reports: No Symptoms HENT: reports: No Symptoms Neck: reports: No Symptoms Cardiovascular: reports: Chest Pain, Palpitations, Shortness of Breath Respiratory: reports: Exercise Intolerance, Orthopnea, SOB, SOB on Exertion Gastrointestinal: reports: Other (decreased appetite) Genitourinary: reports: No Symptoms Breasts: reports: No Symptoms Reported Musculoskeletal: reports: No Symptoms Integumentary: reports: No Symptoms Neurological: reports: Confusion (at baseline) Endocrine: reports: Increased Thirst Hematology/Lymphatic: reports: No Symptoms Psychiatric: reports: No Symptoms Physical Examination Vital Signs: Vital Signs Temperature 96.3 F L 04/28/19 13:07 Pulse Rate 115 H 04/28/19 15:14 Respiratory Rate 18 04/28/19 15:14 Blood Pressure 96/74 04/28/19 15:14 O2 Sat by Pulse Oximetry (%) 98 04/28/19 15:14 Constitutional: Yes: Well Nourished, No Distress, Calm Eyes: Yes: WNL, Conjunctiva Clear, EOM Intact HENT: Yes: WNL, Atraumatic, Normocephalic Neck: Yes: WNL, Supple, Trachea Midline Cardiovascular: Yes: Tachycardia, Pulse Irregular Respiratory: Yes: Regular, Diminished (at bases) Gastrointestinal: Yes: WNL, Normal Bowel Sounds, Soft ...Rectal Exam: Yes: Deferred Renal/: Yes: WNL Breast(s): Yes: WNL Musculoskeletal: Yes: WNL Extremities: Yes: WNL Edema: LLE: 2+, RLE: 2+ Peripheral Pulses WNL: Yes Integumentary: Yes: WNL Neurological: Yes: Alert, Confusion (at baseline) ...Motor Strength: WNL Psychiatric: Yes: Alert, Oriented (to person and place) Labs: CBC, BMP 04/28/19 13:44 04/28/19 13:44 Imaging - Results Chest X-ray: Image Reviewed (Increased PVC, atelectasis to left, right effusion) Problem List - Problems (1) HLD (hyperlipidemia) Assessment/Plan: low fat low cholesterol diet c/w atorvastin Code(s): E78.5 - HYPERLIPIDEMIA, UNSPECIFIED (2) Atrial fibrillation with rapid ventricular response Assessment/Plan: AF w/ RVR on CM and EKG diltaizem IV 15 mg given in ED with decreased in HR c/w IV diltiazem for rate control consider a diltiazern gtt if not controlled change diltaizem CD to ER, 30mg q6h, titrating up if not rate controlled if BP allows will send TSH level maintain K>4.0 , Mg >2,0 TTE oredered, recent 12/31 EF 40/45%, no TR, Mild MR, LV fx mildly reduced Code(s): I48.91 - UNSPECIFIED ATRIAL FIBRILLATION (3) CHF (congestive heart failure) Assessment/Plan: EF on recent TTE 40-45% c/w home dose of torsemide uptitrate as needed given BNP 10K with close attention to Cr (baseline 1.3 in 2017, now 1.7) cadiology consultation requested with Dr Meier (saw in past) Code(s): I50.9 - HEART FAILURE, UNSPECIFIED (4) Gait instability Assessment/Plan: PT request placed fall precautions Code(s): R26.81 - UNSTEADINESS ON FEET (5) Localized swelling of both lower legs Assessment/Plan: c/w torsemide uptitrating if needed elevate legs while in bed Code(s): R22.43 - LOCALIZED SWELLING, MASS AND LUMP, LOWER LIMB, BILATERAL (6) Diabetes Assessment/Plan: BGM AC/HS with novolog sliding scale hold metformin HgbA1c pending Code(s): E11.9 - TYPE 2 DIABETES MELLITUS WITHOUT COMPLICATIONS (7) HTN (hypertension) Assessment/Plan: low fat low cholesterol diet normotensive presently c/w diltiazem Code(s): I10 - ESSENTIAL (PRIMARY) HYPERTENSION (8) Parkinson disease Assessment/Plan: c/w sinemet PT requested Code(s): G20 - PARKINSON'S DISEASE (9) Dementia Assessment/Plan: c/w namenda & aricept hold quetiapine, QTc 578 daily EKG to assess QTc fall precautions frequent orientation encourage family visitation Code(s): F03.90 - UNSPECIFIED DEMENTIA WITHOUT BEHAVIORAL DISTURBANCE (10) Prophylactic measure Assessment/Plan: FEN no need for additional IVF cardiac/diabetic diet monitor electrolytes DVT heparin sq bid Dispo admit to telemetry full code discharge planning Code(s): Z29.9 - ENCOUNTER FOR PROPHYLACTIC MEASURES, UNSPECIFIED Visit type - Emergency Visit Emergency Visit: Yes ED Registration Date: 04/28/19 Care time: The patient presented to the Emergency Department on the above date and was hospitalized for further evaluation of their emergent condition. - New Patient This patient is new to me today: Yes Date on this admission: 04/28/19 - Critical Care Critical Care patient: No
[2019-04-28] MEDS ORDERED: dilTIAZem HCL 30 MG TABLET (FP) PO SCH (18:00)
--- NOTE | 2019-04-28 20:00 | PN ---
Progress Note (short form) - Note Progress Note: This is a patient of Dr. Messina w/ CAD and permanent AF who came to office today for an echo. While having echo, tech noted heart rate was persistently in 120s in AF and she brought the patient to me for follow up. He was stable and had no complaints other than mild palpitations. His BP was on the low side, as it chronically is and I ordered him Digoxin and to f/u w/ Dr. Messina as outpatient. 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 He then went to his PMD's office for his routine exam and was then found to be diaphoretic and sent to ER. REC: 1. Continue tele for rate control; add Digoxin 0.25mg for first 2-3 days, then drop to 0.125mg daily. 2. Continue Eliquis. 3. Avoid Metoprolol as he has had an adverse reaction to it and has refused it. 4. Can Resume Cardizem CD 120 as he was on as outpt. 5. Will repeat echo when rate controlled. Stress test when rate controlled. Full consult to follow in AM
[2019-04-28] MEDS ORDERED: QUEtiapine FUMARATE 25 MG TABLET (FP) PO SCH (22:00)
[2019-04-28] MEDS: MEMANTINE HCL 5 MG TABLET (UD) PO SCH (22:18)
[2019-04-28] MEDS: DIGOXIN 0.25 MG TABLET (FP) PO SCH (22:18)
[2019-04-28] MEDS: APIXABAN 2.5 MG TABLET PO SCH (22:18)
[2019-04-28] MEDS: INSULIN SLIDING SCALE (NOVOLOG) 1 VIAL SQ SCH (22:21)
[2019-04-29 01:56] LABS: MAGNESIUM 2.3 mg/dL (1.8-2.4)
[2019-04-29] MEDS: INSULIN SLIDING SCALE (NOVOLOG) 1 VIAL SQ SCH ×4 (06:36→22:22)
[2019-04-29 07:23] LABS: BASO % 0.6 % (0-2.0); EOS % 0.9 % (0-4.5); HEMATOCRIT 39.8 % (35.4-49); HEMOGLOBIN 13.4 GM/dL (11.7-16.9); LYMPH % 24.8 % (8-40); MCH 29.5 pg (25.7-33.7); MCHC 33.6 g/dl (32.0-35.9); MEAN CELL VOLUME 87.8 fl (80-96); MEAN PLT VOLUME 8.2 fl (7.5-11.1); MONO % 11.1 % (3.8-10.2); NEUT % 62.6 % (42.8-82.8); PLATELET COUNT 206 K/MM3 (134-434); RBC 4.54 M/mm3 (4.00-5.60); RDW 15.3 % (11.9-15.9); WHITE BLOOD COUNT 5.5 K/mm3 (4.0-10.0)
[2019-04-29 08:08] LABS: ALBUMIN 3.3 g/dl (3.4-5.0); BILIRUBIN,TOTAL 1.1 mg/dL (0.2-1); CALCIUM 8.9 mg/dL (8.5-10.1); CREATININE 1.5 mg/dL (0.55-1.3); MAGNESIUM 2.7 mg/dL (1.8-2.4); POTASSIUM 4.1 mmol/L (3.5-5.1); TOT PROT 6.2 g/dl (6.4-8.2)
--- NOTE | 2019-04-29 08:18 | PN ---
Progress Note, Physician Chief Complaint: Chief Complaint: sent by Dr Vila after seeing in office for c/o SOB & palpitations History of Present Illness: 84 yo male with a significant PMH of AF DM, HTN, BPH, CAD s/p CABG x 5 (2009) , who presents to the ED after being seen in PCP office (Dr Vila) with shortness of breath & palpitations that lasted 30 minutes, according to . Roddy does have ISABEL & orthopnea sleeping w/ 2 pillows. Baseline leg edema that wifes states has been worse over last week. Patient went to PCP office today, and on exam was diaphoretic, pale, & tachycardic. EMS was called for transfer to ED. - Current Medication List Current Medications: Active Medications Apixaban (Eliquis -) 2.5 mg PO BID ON LICENSE OF [facility] Last Admin: 04/28/19 22:18 Dose: 2.5 mg Aspirin (Asa -) 81 mg PO DAILY ON LICENSE OF [facility] Atorvastatin Calcium (Lipitor -) 20 mg PO HS ON LICENSE OF [facility] Carbidopa/Levodopa (Sinemet *Cr* 50/200 -) 1 combo PO 0700,1200,1700 ON LICENSE OF [facility] Last Admin: 04/29/19 06:36 Dose: 1 combo Digoxin (Lanoxin -) 0.25 mg PO DAILY ON LICENSE OF [facility] Last Admin: 04/28/19 22:18 Dose: 0.25 mg Diltiazem HCl (Cardizem Cd -) 120 mg PO DAILY ON LICENSE OF [facility] Donepezil HCl (Aricept -) 10 mg PO DAILY ON LICENSE OF [facility] Insulin Aspart (Novolog Vial Sliding Scale -) 1 vial SQ ACHS ON LICENSE OF [facility]; Protocol Last Admin: 04/29/19 06:36 Dose: Not Given Memantine (Namenda -) 5 mg PO BID ON LICENSE OF [facility] Last Admin: 04/28/19 22:18 Dose: 5 mg Tamsulosin HCl (Flomax -) 0.4 mg PO DAILY@0830 ON [facility] Torsemide (Demadex -) 20 mg PO DAILY ON LICENSE OF [facility] - Objective Vital Signs: Vital Signs Temperature 97.8 F 04/29/19 06:00 Pulse Rate 107 H 04/29/19 06:00 Respiratory Rate 20 04/29/19 06:00 Blood Pressure 121/69 04/29/19 06:00 O2 Sat by Pulse Oximetry (%) 96 04/28/19 21:00 Constitutional: Yes: Well Nourished, No Distress, Calm Eyes: Yes: WNL, Conjunctiva Clear, EOM Intact HENT: Yes: WNL, Atraumatic, Normocephalic Neck: Yes: WNL, Supple, Trachea Midline Cardiovascular: Yes: WNL, Regular Rate and Rhythm, Pulse Irregular Respiratory: Yes: WNL, Regular, CTA Bilaterally Gastrointestinal: Yes: WNL, Normal Bowel Sounds, Abdomen, Obese ...Rectal Exam: Yes: Deferred Genitourinary: Yes: WNL Breast(s): Yes: WNL Musculoskeletal: Yes: WNL, Muscle Weakness (genralized weakness) Extremities: Yes: WNL Edema: No Edema: LLE: 1+, RLE: 1+ Peripheral Pulses WNL: Yes Integumentary: Yes: WNL Neurological: Yes: Alert, Confusion (periods of confusion @ baseline) ...Motor Strength: LLE, RLE (generalized weakness) Psychiatric: Yes: Alert, Oriented (to person and place) Labs: CBC, BMP 04/29/19 06:28 04/29/19 06:28 Problem List - Problems (1) HLD (hyperlipidemia) Assessment/Plan: low fat low cholesterol diet c/w atorvastin Code(s): E78.5 - HYPERLIPIDEMIA, UNSPECIFIED (2) Atrial fibrillation with rapid ventricular response Assessment/Plan: AF w/ RVR on CM and EKG diltaizem IV 15 mg given in ED with decreased in HR c/w cardizem CD maintain K>4.0 , Mg >2,0 Digoxin 0.25 mg added yest, c/w dose today and then can decrease to 0.125mg daily will do TTE when more rate controlled, recent 12/31 EF 40/45%, no TR, Mild MR, LV fx mildly reduced Code(s): I48.91 - UNSPECIFIED ATRIAL FIBRILLATION (3) CHF (congestive heart failure) Assessment/Plan: EF on recent TTE 40-45% c/w home dose of torsemide uptitrate as needed given BNP 11K with close attention to Cr (baseline 1.3 in 2017, now 1.5) cardiology consultation appreciated Code(s): I50.9 - HEART FAILURE, UNSPECIFIED (4) Gait instability Assessment/Plan: PT request placed fall precautions Code(s): R26.81 - UNSTEADINESS ON FEET (5) Localized swelling of both lower legs Assessment/Plan: c/w torsemide uptitrating if needed elevate legs while in bed Code(s): R22.43 - LOCALIZED SWELLING, MASS AND LUMP, LOWER LIMB, BILATERAL (6) Diabetes Assessment/Plan: BGM AC/HS with novolog sliding scale hold metformin HgbA1c pending Code(s): E11.9 - TYPE 2 DIABETES MELLITUS WITHOUT COMPLICATIONS (7) HTN (hypertension) Assessment/Plan: low fat low cholesterol diet normotensive presently c/w diltiazem Code(s): I10 - ESSENTIAL (PRIMARY) HYPERTENSION (8) Parkinson disease Assessment/Plan: c/w sinemet PT requested Code(s): G20 - PARKINSON'S DISEASE (9) Dementia Assessment/Plan: c/w namenda & aricept hold quetiapine, QTc 578 daily EKG to assess QTc fall precautions frequent orientation encourage family visitation Code(s): F03.90 - UNSPECIFIED DEMENTIA WITHOUT BEHAVIORAL DISTURBANCE (10) Prophylactic measure Assessment/Plan: FEN no need for additional IVF cardiac/diabetic diet monitor electrolytes DVT heparin sq bid Dispo admit to telemetry full code discharge planning Code(s): Z29.9 - ENCOUNTER FOR PROPHYLACTIC MEASURES, UNSPECIFIED Visit type - Emergency Visit Emergency Visit: Yes ED Registration Date: 04/28/19 Care time: The patient presented to the Emergency Department on the above date and was hospitalized for further evaluation of their emergent condition. - New Patient This patient is new to me today: No - Critical Care Critical Care patient: No - Discharge Referral Referred to [facility] No
--- NOTE | 2019-04-29 08:41 | CON.CARD ---
Consult Consult Specialty:: Cardiology Referred by:: Figueroa Moncada Reason for Consultation:: AFL - History of Present Illness Chief Complaint: Sent for AFL, diaphoresis History of Present Illness: 84 M CAD s/p CABG 2009, mild to mod AR, RBBB, WILLIE, HTN, HLD, Parkinson's Dementia, DM with poor compliance came to office for echo yesterday and was in rapid atrial flutter. Meds were adjusted but later in day was in PMD office appearing diaphoretic and was sent to ER for further management. Denies CP, SOB, palps at this time. Appears comfortable. Recent Holter w/ average rate 100bpm On tele: AFL 130s, no sig pauses. 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 Cardio/Vascular: Yes: AFIB, CAD, CHF, HTN - Past Surgical History Past Surgical History: Yes: CABG (2009 x5v), Joint Replacement (Left TKR) - Alcohol/Substance Use Hx Alcohol Use: No - Smoking History Smoking history: Never smoked Have you smoked in the past 12 months: No - Social History ADL: Family Assistance Occupation: retired History of Recent Travel: No Home Medications - Allergies Allergies/Adverse Reactions: Allergies Allergy/AdvReac Type Severity Reaction Status Date / Time No Known Allergies Allergy Verified 04/28/19 12:55 - Home Medications Home Medications: Ambulatory Orders Potassium Chloride 20 meq PO DAILY 12/28/14 Tamsulosin HCl 0.4 mg PO DAILY 12/28/14 Aspirin 81 mg PO DAILY 11/13/17 Atorvastatin Ca [Lipitor] 20 mg PO DAILY 11/13/17 metFORMIN HCL [Metformin HCl] 500 mg PO BID 11/13/17 Donepezil HCl [Aricept] 10 mg PO DAILY 11/14/17 Carbidopa/Levodopa *Cr* 50/200 [Sinemet *Cr* 50/200 -] 1 combo PO 0700,1200, 1700 #90 tablet.er 01/01/18 Apixaban [Eliquis -] 2.5 mg PO BID 04/28/19 Cholecalciferol (Vitamin D3) [Vitamin D3 -] 50,000 unit PO WEEKLY 04/28/19 Diltiazem HCl [Cartia Xt] 120 mg PO DAILY 04/28/19 Memantine HCl [Namenda -] 5 mg PO BID 04/28/19 Quetiapine Fumarate [Seroquel -] 25 mg PO HS 04/28/19 Torsemide [Demadex -] 20 mg PO DAILY 04/28/19 Family Disease History - Family Disease History Family History: Unremarkable Review of Systems Findings/Remarks: see HPI - Review of Systems Constitutional: reports: No Symptoms Cardiovascular: reports: No Symptoms Respiratory: reports: No Symptoms Gastrointestinal: reports: No Symptoms Genitourinary: reports: No Symptoms Breasts: reports: No Symptoms Reported Musculoskeletal: reports: No Symptoms Integumentary: reports: No Symptoms Neurological: reports: No Symptoms Endocrine: reports: No Symptoms Hematology/Lymphatic: reports: No Symptoms Psychiatric: reports: No Symptoms - Risk Factors Known Risk Factors: Yes: Other (Known CAD) Vital Signs: Vital Signs Temperature 97.8 F 04/29/19 06:00 Pulse Rate 107 H 04/29/19 06:00 Respiratory Rate 20 04/29/19 06:00 Blood Pressure 121/69 04/29/19 06:00 O2 Sat by Pulse Oximetry (%) 96 04/28/19 21:00 Constitutional: Yes: No Distress, Calm Respiratory: Yes: CTA Bilaterally (no rales or wheezing) Cardiovascular: Yes: Pulse Irregular JVD: No Carotid Bruit: No Heart Sounds: Yes: S1, S2 (irreg) Edema: No - Other Data Labs, Other Data: CBC, BMP 04/29/19 06:28 04/29/19 06:28 Troponin, BNP 04/28/19 04/28/19 04/29/19 13:44 13:44 06:28 Troponin I 0.03 0.03 B-Natriuretic Peptide 58444.8 H 96943.0 H Troponin, BNP 04/28/19 04/28/19 04/29/19 13:44 13:44 06:28 Troponin I 0.03 0.03 B-Natriuretic Peptide 45826.8 H 74341.0 H AFL 124, RBBB Echo: Other (office echo prelim yest w/ severe LV dysfx, global. - new from prior) Imaging - Results X-ray: Image Reviewed EKG: Image Reviewed Assessment/Plan IMP: 1. 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 CAD s/p CABG (42009: ARAUZ to LAD, SVG to PDA, SVG to Ramus sequential to OM ) 3.HTN, DM w/ CKD 4. Parkinson's disease REC: 1. Add Digoxin 0.25 mg yest, today and then can decrease to 0.125mg daily Used for adjunct rate control as patient with chronic "soft" BP and prior adverse reaction to Metoprolol (dizziness) and refuses to take it. - Continue Cardizem CD; as LV dyfx is suspected to be rate related, reasonable to continue it in this setting. 2. Continue Eliquis adjusted for age, weight and renal fx 3. Repeat echo here will likely show similar findings, and should prob be repeated after period of rate control. 4. Nuclear stress to r/o ischemia (as cause of decreased EF) when rate controlled. 5. Cont. tele.
[2019-04-29] MEDS: MEMANTINE HCL 5 MG TABLET (UD) PO SCH ×2 (09:57→23:21)
[2019-04-29] MEDS: ASPIRIN 81 MG CHEWABLE TABLETS PO SCH (09:57)
[2019-04-29] MEDS: DONEPEZIL HCL 10 MG TABLET (FP) PO SCH (09:57)
[2019-04-29] MEDS: DIGOXIN 0.25 MG TABLET (FP) PO SCH (09:57)
[2019-04-29] MEDS: TAMSULOSIN HCL 0.4 MG CAP PO SCH (09:57)
[2019-04-29] MEDS: APIXABAN 2.5 MG TABLET PO SCH ×2 (09:57→23:21)
[2019-04-29] MEDS ORDERED: TORSEMIDE 20 MG TABLET (FP) PO SCH (10:00)
--- NOTE | 2019-04-29 11:12 | EKG ---
Test Reason : Blood Pressure : / mmHG Vent. Rate : 124 BPM Atrial Rate : 248 BPM P-R Int : 000 ms QRS Dur : 120 ms QT Int : 410 ms P-R-T Axes : 000 -51 -60 degrees QTc Int : 589 ms ATRIAL FLUTTER WITH 2:1 A-V CONDUCTION LEFT AXIS DEVIATION RIGHT BUNDLE BRANCH BLOCK T WAVE ABNORMALITY, CONSIDER INFERIOR ISCHEMIA ABNORMAL ECG WHEN COMPARED WITH ECG OF 22-MAR-2019 15:39, CRITERIA FOR INFERIOR INFARCT ARE NO LONGER PRESENT NONSPECIFIC T WAVE ABNORMALITY HAS REPLACED INVERTED T WAVES IN LATERAL LEADS Confirmed by EM SALGUERO MD ([id number]) on 04/29/2019 11:12:22 AM Referred By: Confirmed By:EM SALGUERO MD
[2019-04-29] MEDS: ATORVASTATIN CA 20 MG TABLET (FP) PO SCH (23:21)
[2019-04-30] MEDS: INSULIN SLIDING SCALE (NOVOLOG) 1 VIAL SQ SCH ×4 (06:15→21:30)
[2019-04-30 07:49] LABS: BASO % 0.6 % (0-2.0); EOS % 1.4 % (0-4.5); HEMATOCRIT 39.7 % (35.4-49); HEMOGLOBIN 13.6 GM/dL (11.7-16.9); LYMPH % 20.9 % (8-40); MCH 29.8 pg (25.7-33.7); MCHC 34.1 g/dl (32.0-35.9); MEAN CELL VOLUME 87.4 fl (80-96); MEAN PLT VOLUME 8.2 fl (7.5-11.1); MONO % 11.6 % (3.8-10.2); NEUT % 65.5 % (42.8-82.8); PLATELET COUNT 205 K/MM3 (134-434); RBC 4.54 M/mm3 (4.00-5.60); WHITE BLOOD COUNT 4.4 K/mm3 (4.0-10.0)
[2019-04-30 08:04] LABS: ALBUMIN 3.2 g/dl (3.4-5.0); BILIRUBIN,TOTAL 1.5 mg/dL (0.2-1); BLOOD UREA NITROGEN 20.6 mg/dL (7-18); CALCIUM 9.1 mg/dL (8.5-10.1); CREATININE 1.3 mg/dL (0.55-1.3); MAGNESIUM 2.5 mg/dL (1.8-2.4)
[2019-04-30] MEDS: TAMSULOSIN HCL 0.4 MG CAP PO SCH (08:47)
--- NOTE | 2019-04-30 09:02 | PN ---
Progress Note, Physician Chief Complaint: sitting on edge bed, no distress TELE: AF, 80s. PVC, couplets. History of Present Illness: weight stable. - Current Medication List Current Medications: Active Medications Apixaban (Eliquis -) 2.5 mg PO BID [facility] Last Admin: 04/29/19 23:21 Dose: 2.5 mg Aspirin (Asa -) 81 mg PO DAILY [facility] Last Admin: 04/29/19 09:57 Dose: 81 mg Atorvastatin Calcium (Lipitor -) 20 mg PO HS [facility] Last Admin: 04/29/19 23:21 Dose: 20 mg Carbidopa/Levodopa (Sinemet *Cr* 50/200 -) 1 combo PO 0700,1200,1700 [facility] Last Admin: 04/30/19 06:31 Dose: 1 combo Digoxin (Lanoxin -) 0.125 mg PO DAILY [facility] Diltiazem HCl (Cardizem Cd -) 120 mg PO DAILY [facility] Last Admin: 04/29/19 09:57 Dose: 120 mg Donepezil HCl (Aricept -) 10 mg PO DAILY [facility] Last Admin: 04/29/19 09:57 Dose: 10 mg Insulin Aspart (Novolog Vial Sliding Scale -) 1 vial SQ ACHS [facility]; Protocol Last Admin: 04/30/19 06:15 Dose: Not Given Memantine (Namenda -) 5 mg PO BID [facility] Last Admin: 04/29/19 23:21 Dose: 5 mg Tamsulosin HCl (Flomax -) 0.4 mg PO DAILY@0830 [facility] Last Admin: 04/30/19 08:47 Dose: 0.4 mg Torsemide (Demadex -) 20 mg PO DAILY [facility] Last Admin: 04/29/19 09:57 Dose: 20 mg - Objective Vital Signs: Vital Signs Temperature 97.8 F 04/30/19 02:00 Pulse Rate 88 04/30/19 06:00 Respiratory Rate 18 04/30/19 06:00 Blood Pressure 124/81 04/30/19 06:00 O2 Sat by Pulse Oximetry (%) 92 L 04/29/19 21:00 Constitutional: Yes: No Distress Cardiovascular: Yes: Pulse Irregular Gastrointestinal: Yes: Other (rales right base) Edema: No Neurological: Yes: Alert, Oriented Labs: CBC, BMP 04/30/19 06:28 04/30/19 06:28 - ....Imaging EKG: Image Reviewed Assessment/Plan IMP: 1. 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 CAD s/p CABG (4V 2009: ARAUZ to LAD, SVG to PDA, SVG to Ramus sequential to OM ) 3.HTN, DM w/ CKD 4. Parkinson's disease REC: 1. Rates improved with addition of Dig Used for adjunct rate control as patient with chronic "soft" BP and prior adverse reaction to Metoprolol (dizziness) and refuses to take it. - Continue Cardizem CD; as LV dyfx is suspected to be rate related, reasonable to continue it in this setting. 2. Continue Eliquis adjusted for age, weight and renal fx 3. Echo yest showed similar findings- new severe LV dysfx (suspect rate related ) and should prob be repeated after period of rate control. 4. Nuclear stress to r/o ischemia (as cause of decreased EF) when rate controlled and euvolemic, rales on exam today. Will increase Torsemide. Cont daily weights and BMP to follow renal function. 5. Cont. tele.
--- NOTE | 2019-04-30 09:24 | PN ---
Progress Note, Physician Chief Complaint: Chief Complaint: sent by Dr Vila after seeing in office for c/o SOB & palpitations History of Present Illness: 84 yo male with a significant PMH of AF DM, HTN, BPH, CAD s/p CABG x 5 (2009) , who presents to the ED after being seen in PCP office (Dr Vila) with shortness of breath & palpitations that lasted 30 minutes, according to . Roddy does have ISABEL & orthopnea sleeping w/ 2 pillows. Baseline leg edema that wifes states has been worse over last week. Patient went to PCP office today, and on exam was diaphoretic, pale, & tachycardic. EMS was called for transfer to ED. - Current Medication List Current Medications: Active Medications Apixaban (Eliquis -) 2.5 mg PO BID [facility] Last Admin: 04/29/19 23:21 Dose: 2.5 mg Aspirin (Asa -) 81 mg PO DAILY [facility] Last Admin: 04/29/19 09:57 Dose: 81 mg Atorvastatin Calcium (Lipitor -) 20 mg PO HS [facility] Last Admin: 04/29/19 23:21 Dose: 20 mg Carbidopa/Levodopa (Sinemet *Cr* 50/200 -) 1 combo PO 0700,1200,1700 [facility] Last Admin: 04/30/19 06:31 Dose: 1 combo Digoxin (Lanoxin -) 0.125 mg PO DAILY [facility] Diltiazem HCl (Cardizem Cd -) 120 mg PO DAILY [facility] Last Admin: 04/29/19 09:57 Dose: 120 mg Donepezil HCl (Aricept -) 10 mg PO DAILY [facility] Last Admin: 04/29/19 09:57 Dose: 10 mg Insulin Aspart (Novolog Vial Sliding Scale -) 1 vial SQ ACHS [facility]; Protocol Last Admin: 04/30/19 06:15 Dose: Not Given Memantine (Namenda -) 5 mg PO BID [facility] Last Admin: 04/29/19 23:21 Dose: 5 mg Tamsulosin HCl (Flomax -) 0.4 mg PO DAILY@0830 [facility] Last Admin: 04/30/19 08:47 Dose: 0.4 mg Torsemide (Demadex -) 40 mg PO DAILY [facility] - Objective Vital Signs: Vital Signs Temperature 97.8 F 04/30/19 02:00 Pulse Rate 88 04/30/19 06:00 Respiratory Rate 18 04/30/19 06:00 Blood Pressure 124/81 04/30/19 06:00 O2 Sat by Pulse Oximetry (%) 92 L 04/29/19 21:00 Constitutional: Yes: Well Nourished, No Distress, Calm Eyes: Yes: WNL, Conjunctiva Clear, EOM Intact HENT: Yes: WNL, Atraumatic, Normocephalic Neck: Yes: WNL, Supple, Trachea Midline Cardiovascular: Yes: WNL, Regular Rate and Rhythm Respiratory: Yes: Regular, Rales Gastrointestinal: Yes: WNL, Normal Bowel Sounds, Soft ...Rectal Exam: Yes: Deferred Genitourinary: Yes: WNL Breast(s): Yes: WNL Musculoskeletal: Yes: WNL Extremities: Yes: WNL Edema: Yes Edema: LLE: Trace, RLE: Trace Integumentary: Yes: WNL Neurological: Yes: WNL, Alert, Confusion ...Motor Strength: LLE, RLE (generalized) Psychiatric: Yes: WNL, Alert, Oriented Labs: CBC, BMP 04/30/19 06:28 04/30/19 06:28 Problem List - Problems (1) HLD (hyperlipidemia) Assessment/Plan: low fat low cholesterol diet c/w atorvastin Code(s): E78.5 - HYPERLIPIDEMIA, UNSPECIFIED (2) Atrial fibrillation with rapid ventricular response Assessment/Plan: AF w/ RVR on CM and EKG diltaizem IV 15 mg given in ED with decreased in HR c/w cardizem CD maintain K>4.0 , Mg >2,0 c/w Digoxin rate controlled now will do TTE when more rate controlled, recent 12/31 EF 40/45%, no TR, Mild MR, LV fx mildly reduced Code(s): I48.91 - UNSPECIFIED ATRIAL FIBRILLATION (3) CHF (congestive heart failure) Assessment/Plan: EF on recent TTE 40-45% c/w home dose of torsemide uptitrate as needed given BNP 11K with close attention to Cr (baseline 1.3 in 2017, now 1.5) cardiology consultation appreciated Code(s): I50.9 - HEART FAILURE, UNSPECIFIED (4) Gait instability Assessment/Plan: PT request placed fall precautions Code(s): R26.81 - UNSTEADINESS ON FEET (5) Localized swelling of both lower legs Assessment/Plan: c/w torsemide increased to 40mg elevate legs while in bed Code(s): R22.43 - LOCALIZED SWELLING, MASS AND LUMP, LOWER LIMB, BILATERAL (6) Diabetes Assessment/Plan: BGM AC/HS with novolog sliding scale hold metformin HgbA1c pending Code(s): E11.9 - TYPE 2 DIABETES MELLITUS WITHOUT COMPLICATIONS (7) HTN (hypertension) Assessment/Plan: low fat low cholesterol diet normotensive presently c/w diltiazem Code(s): I10 - ESSENTIAL (PRIMARY) HYPERTENSION (8) Parkinson disease Assessment/Plan: c/w sinemet PT requested Code(s): G20 - PARKINSON'S DISEASE (9) Dementia Assessment/Plan: c/w namenda & aricept hold quetiapine, QTc 578 daily EKG to assess QTc fall precautions frequent orientation encourage family visitation Code(s): F03.90 - UNSPECIFIED DEMENTIA WITHOUT BEHAVIORAL DISTURBANCE (10) Prophylactic measure Assessment/Plan: FEN no need for additional IVF cardiac/diabetic diet monitor electrolytes DVT heparin sq bid Dispo admit to telemetry full code discharge planning Code(s): Z29.9 - ENCOUNTER FOR PROPHYLACTIC MEASURES, UNSPECIFIED Visit type - Emergency Visit Emergency Visit: Yes ED Registration Date: 04/28/19 Care time: The patient presented to the Emergency Department on the above date and was hospitalized for further evaluation of their emergent condition. - New Patient This patient is new to me today: No - Critical Care Critical Care patient: No - Discharge Referral Referred to [facility] Med P.C.: No
[2019-04-30] MEDS: APIXABAN 2.5 MG TABLET PO SCH ×2 (09:33→21:29)
[2019-04-30] MEDS: MEMANTINE HCL 5 MG TABLET (UD) PO SCH ×2 (09:33→21:29)
[2019-04-30] MEDS: ASPIRIN 81 MG CHEWABLE TABLETS PO SCH (09:33)
[2019-04-30] MEDS: TORSEMIDE 20 MG TABLET (FP) PO SCH (09:34)
[2019-04-30] MEDS: DONEPEZIL HCL 10 MG TABLET (FP) PO SCH (09:39)
--- NOTE | 2019-04-30 11:49 | EKG ---
Test Reason : Blood Pressure : / mmHG Vent. Rate : 116 BPM Atrial Rate : 250 BPM P-R Int : 000 ms QRS Dur : 158 ms QT Int : 374 ms P-R-T Axes : 149 -41 -30 degrees QTc Int : 519 ms ATRIAL FLUTTER WITH VARIABLE A-V BLOCK WITH PREMATURE VENTRICULAR OR ABERRANTLY CONDUCTED COMPLEXES LEFT AXIS DEVIATION RIGHT BUNDLE BRANCH BLOCK INFERIOR INFARCT , AGE UNDETERMINED ABNORMAL ECG WHEN COMPARED WITH ECG OF 28-APR-2019 15:33, NO SIGNIFICANT CHANGE WAS FOUND Confirmed by EM SALGUERO MD ([id number]) on 04/30/2019 11:48:47 AM Referred By: Confirmed By:EM SALGUERO MD
--- NOTE | 2019-04-30 11:53 | EKG ---
Test Reason : Blood Pressure : / mmHG Vent. Rate : 123 BPM Atrial Rate : 246 BPM P-R Int : 000 ms QRS Dur : 156 ms QT Int : 362 ms P-R-T Axes : 112 -65 -41 degrees QTc Int : 518 ms ATRIAL FLUTTER WITH 2:1 A-V CONDUCTION RIGHT BUNDLE BRANCH BLOCK LEFT ANTERIOR FASCICULAR BLOCK BIFASCICULAR BLOCK ABNORMAL ECG WHEN COMPARED WITH ECG OF 28-APR-2019 13:11, NO SIGNIFICANT CHANGE WAS FOUND Confirmed by EM SALGUERO MD ([id number]) on 04/30/2019 11:52:59 AM Referred By: Confirmed By:EM SALGUERO MD
[2019-04-30] MEDS: DIGOXIN 0.125 MG TABLET (FP) PO SCH (21:29)
[2019-04-30] MEDS: ATORVASTATIN CA 20 MG TABLET (FP) PO SCH (21:29)
[2019-05-01] MEDS: INSULIN SLIDING SCALE (NOVOLOG) 1 VIAL SQ SCH ×4 (06:41→21:17)
[2019-05-01 07:13] LABS: BASO % 0.7 % (0-2.0); EOS % 1.2 % (0-4.5); HEMATOCRIT 40.6 % (35.4-49); HEMOGLOBIN 13.6 GM/dL (11.7-16.9); LYMPH % 24.8 % (8-40); MCH 29.6 pg (25.7-33.7); MCHC 33.6 g/dl (32.0-35.9); MEAN CELL VOLUME 88.3 fl (80-96); MEAN PLT VOLUME 8.1 fl (7.5-11.1); MONO % 11.5 % (3.8-10.2); NEUT % 61.8 % (42.8-82.8); PLATELET COUNT 206 K/MM3 (134-434); RDW 15.3 % (11.9-15.9); WHITE BLOOD COUNT 3.7 K/mm3 (4.0-10.0)
[2019-05-01 07:41] LABS: ALBUMIN 3.3 g/dl (3.4-5.0); BILIRUBIN,TOTAL 1.2 mg/dL (0.2-1); BLOOD UREA NITROGEN 19.6 mg/dL (7-18); CALCIUM 8.9 mg/dL (8.5-10.1); CREATININE 1.3 mg/dL (0.55-1.3); MAGNESIUM 2.4 mg/dL (1.8-2.4); TOT PROT 6.3 g/dl (6.4-8.2)
--- NOTE | 2019-05-01 07:54 | PN ---
Progress Note, Physician Chief Complaint: Sent by Dr Vila after seeing in office for c/o SOB & palpitations. No complaints offered overnight History of Present Illness: 84 yo male with a significant PMH of AF DM, HTN, BPH, CAD s/p CABG x 5 (2009) , who presents to the ED after being seen in PCP office (Dr Vila) with shortness of breath & palpitations that lasted 30 minutes, according to . Roddy does have ISABEL & orthopnea sleeping w/ 2 pillows. Baseline leg edema that wifes states has been worse over last week. Patient went to PCP office today, and on exam was diaphoretic, pale, & tachycardic. EMS was called for transfer to ED. - Current Medication List Current Medications: Active Medications Apixaban (Eliquis -) 2.5 mg PO BID [facility] Last Admin: 04/30/19 21:29 Dose: 2.5 mg Aspirin (Asa -) 81 mg PO DAILY [facility] Last Admin: 04/30/19 09:33 Dose: 81 mg Atorvastatin Calcium (Lipitor -) 20 mg PO HS [facility] Last Admin: 04/30/19 21:29 Dose: 20 mg Carbidopa/Levodopa (Sinemet *Cr* 50/200 -) 1 combo PO 0700,1200,1700 [facility] Last Admin: 05/01/19 06:43 Dose: 1 combo Digoxin (Lanoxin -) 0.125 mg PO DAILY [facility] Last Admin: 04/30/19 21:29 Dose: 0.125 mg Diltiazem HCl (Cardizem Cd -) 120 mg PO DAILY [facility] Last Admin: 04/30/19 09:33 Dose: 120 mg Donepezil HCl (Aricept -) 10 mg PO DAILY [facility] Last Admin: 04/30/19 09:39 Dose: 10 mg Insulin Aspart (Novolog Vial Sliding Scale -) 1 vial SQ [facility]; Protocol Last Admin: 05/01/19 06:41 Dose: Not Given Memantine (Namenda -) 5 mg PO BID [facility] Last Admin: 04/30/19 21:29 Dose: 5 mg Tamsulosin HCl (Flomax -) 0.4 mg PO DAILY@0830 [facility] Last Admin: 04/30/19 08:47 Dose: 0.4 mg Torsemide (Demadex -) 40 mg PO DAILY [facility] Last Admin: 04/30/19 09:34 Dose: 40 mg - Objective Vital Signs: Vital Signs Temperature 98.4 F 05/01/19 02:00 Pulse Rate 85 05/01/19 06:00 Respiratory Rate 20 05/01/19 06:00 Blood Pressure 120/73 05/01/19 06:00 O2 Sat by Pulse Oximetry (%) 93 L 04/30/19 20:15 Constitutional: Yes: Well Nourished, No Distress, Calm Eyes: Yes: WNL, Conjunctiva Clear, EOM Intact HENT: Yes: WNL, Atraumatic, Normocephalic Neck: Yes: WNL, Supple, Trachea Midline Cardiovascular: Yes: WNL, Pulse Irregular (Aflutter on cm) Respiratory: Yes: WNL, Regular, CTA Bilaterally Gastrointestinal: Yes: WNL, Normal Bowel Sounds, Soft ...Rectal Exam: Yes: Deferred Genitourinary: Yes: WNL Breast(s): Yes: WNL Musculoskeletal: Yes: WNL Extremities: Yes: WNL Edema: No Peripheral Pulses WNL: Yes Integumentary: Yes: WNL Neurological: Yes: WNL, Alert, Confusion (at times) ...Motor Strength: LLE, RLE (generalized weakness) Psychiatric: Yes: WNL, Alert, Oriented (to person and place) Labs: CBC, BMP 05/01/19 06:34 Problem List - Problems (1) HLD (hyperlipidemia) Assessment/Plan: low fat low cholesterol diet c/w atorvastin Code(s): E78.5 - HYPERLIPIDEMIA, UNSPECIFIED (2) Atrial fibrillation with rapid ventricular response Assessment/Plan: AF w/ RVR on CM and EKG on admission , now in aflutter rate controlled c/w cardizem CD c/w Digoxin rate controlled now maintain K>4.0 , Mg >2,0 TTE/ST planned for friday Code(s): I48.91 - UNSPECIFIED ATRIAL FIBRILLATION (3) CHF (congestive heart failure) Assessment/Plan: EF on recent TTE 40-45% c/w increased dose of torsemide cardiology consultation appreciated Code(s): I50.9 - HEART FAILURE, UNSPECIFIED (4) Gait instability Assessment/Plan: PT request placed fall precautions Code(s): R26.81 - UNSTEADINESS ON FEET (5) Localized swelling of both lower legs Assessment/Plan: c/w torsemide Code(s): R22.43 - LOCALIZED SWELLING, MASS AND LUMP, LOWER LIMB, BILATERAL (6) Diabetes Assessment/Plan: BGM AC/HS with novolog sliding scale hold metformin will send HgbA1c Code(s): E11.9 - TYPE 2 DIABETES MELLITUS WITHOUT COMPLICATIONS (7) HTN (hypertension) Assessment/Plan: low fat low cholesterol diet normotensive presently c/w diltiazem Code(s): I10 - ESSENTIAL (PRIMARY) HYPERTENSION (8) Parkinson disease Assessment/Plan: c/w sinemet PT requested Code(s): G20 - PARKINSON'S DISEASE (9) Dementia Assessment/Plan: c/w namenda & aricept hold quetiapine, QTc 578 daily EKG to assess QTc fall precautions frequent orientation encourage family visitation Code(s): F03.90 - UNSPECIFIED DEMENTIA WITHOUT BEHAVIORAL DISTURBANCE (10) Prophylactic measure Assessment/Plan: FEN no need for additional IVF cardiac/diabetic diet monitor electrolytes DVT heparin sq bid Dispo maintain on telemetry full code discharge planning Code(s): Z29.9 - ENCOUNTER FOR PROPHYLACTIC MEASURES, UNSPECIFIED Visit type - Emergency Visit Emergency Visit: Yes ED Registration Date: 04/28/19 Care time: The patient presented to the Emergency Department on the above date and was hospitalized for further evaluation of their emergent condition. - New Patient This patient is new to me today: No - Critical Care Critical Care patient: No - Discharge Referral Referred to [facility] Med P.C.: No
--- NOTE | 2019-05-01 08:28 | PN ---
Progress Note, Physician Chief Complaint: tachycardia History of Present Illness: denies palpitations. says he walked in halls without dizzy, sob, cp - Current Medication List Current Medications: Active Medications Apixaban (Eliquis -) 2.5 mg PO BID [facility] Last Admin: 04/30/19 21:29 Dose: 2.5 mg Aspirin (Asa -) 81 mg PO DAILY [facility] Last Admin: 04/30/19 09:33 Dose: 81 mg Atorvastatin Calcium (Lipitor -) 20 mg PO HS [facility] Last Admin: 04/30/19 21:29 Dose: 20 mg Carbidopa/Levodopa (Sinemet *Cr* 50/200 -) 1 combo PO 0700,1200,1700 [facility] Last Admin: 05/01/19 06:43 Dose: 1 combo Digoxin (Lanoxin -) 0.125 mg PO DAILY [facility] Last Admin: 04/30/19 21:29 Dose: 0.125 mg Diltiazem HCl (Cardizem Cd -) 120 mg PO DAILY [facility] Last Admin: 04/30/19 09:33 Dose: 120 mg Donepezil HCl (Aricept -) 10 mg PO DAILY [facility] Last Admin: 04/30/19 09:39 Dose: 10 mg Insulin Aspart (Novolog Vial Sliding Scale -) 1 vial SQ ACHS [facility]; Protocol Last Admin: 05/01/19 06:41 Dose: Not Given Memantine (Namenda -) 5 mg PO BID [facility] Last Admin: 04/30/19 21:29 Dose: 5 mg Tamsulosin HCl (Flomax -) 0.4 mg PO DAILY@0830 [facility] Last Admin: 04/30/19 08:47 Dose: 0.4 mg Torsemide (Demadex -) 40 mg PO DAILY [facility] Last Admin: 04/30/19 09:34 Dose: 40 mg - Objective Vital Signs: Vital Signs Temperature 98.4 F 05/01/19 02:00 Pulse Rate 85 05/01/19 06:00 Respiratory Rate 20 05/01/19 06:00 Blood Pressure 120/73 05/01/19 06:00 O2 Sat by Pulse Oximetry (%) 93 L 04/30/19 20:15 Constitutional: Yes: Well Nourished, No Distress, Calm Cardiovascular: Yes: Pulse Irregular, S1, S2. No: Gallop, Murmur Respiratory: Yes: Regular, CTA Bilaterally. No: Accessory Muscle Use, Rales, Wheezes Extremities: No: Cold Edema: No Neurological: Yes: Alert, Oriented Psychiatric: No: Agitated Labs: CBC, BMP 05/01/19 06:34 05/01/19 06:34 Assessment/Plan tele: AFL rates 80s-120-->30s-40s overnight likely asleep with hi vagal tone. at times aberrant conduction. IMP: 1. 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 severe LV systolic dysfuntion, new (on office echo 05/03) 3. CAD s/p CABG (2009: ARAUZ to LAD, SVG to PDA, SVG to Ramus sequential to OM ) 4.HTN, DM w/ CKD 5. Parkinson's disease REC: -Rates improved with addition of Dig (used for adjunct rate control as patient with chronic "soft" BP and prior adverse reaction to Metoprolol (dizziness) and refuses to take it. -Continue Cardizem CD; as LV dyfx is suspected to be rate related, should improved with rate control--reasonable to continue it in this setting. -digoxin level in AM -ambulated in halls today to assess for adequacy of rate control -if rate control cannot be obtained medically, will have to consider flutter ablation -Continue Eliquis adjusted for age, weight and renal fx -Echo in office with new severe LV dysfx (suspect rate related)--to be repeated after period of rate control. -torsemide increased 04/30 for rales on exam--lungs clear 05/01, appears euvolemic. continue same -Nuclear stress friday (as cause of decreased EF)
[2019-05-01] MEDS: ASPIRIN 81 MG CHEWABLE TABLETS PO SCH (10:11)
[2019-05-01] MEDS: TORSEMIDE 20 MG TABLET (FP) PO SCH (10:11)
[2019-05-01] MEDS: TAMSULOSIN HCL 0.4 MG CAP PO SCH (10:11)
[2019-05-01] MEDS: MEMANTINE HCL 5 MG TABLET (UD) PO SCH ×2 (10:11→21:17)
[2019-05-01] MEDS: DONEPEZIL HCL 10 MG TABLET (FP) PO SCH (10:11)
[2019-05-01] MEDS: APIXABAN 2.5 MG TABLET PO SCH ×2 (10:11→21:17)
[2019-05-01] MEDS: DIGOXIN 0.125 MG TABLET (FP) PO SCH (10:11)
[2019-05-01] MEDS: ATORVASTATIN CA 20 MG TABLET (FP) PO SCH (21:17)
[2019-05-02] MEDS: INSULIN SLIDING SCALE (NOVOLOG) 1 VIAL SQ SCH ×4 (06:23→21:28)
[2019-05-02] MEDS: MEMANTINE HCL 5 MG TABLET (UD) PO SCH ×2 (10:37→21:22)
[2019-05-02] MEDS: DIGOXIN 0.125 MG TABLET (FP) PO SCH (10:38)
[2019-05-02] MEDS: TORSEMIDE 20 MG TABLET (FP) PO SCH (10:38)
[2019-05-02] MEDS: ASPIRIN 81 MG CHEWABLE TABLETS PO SCH (10:38)
[2019-05-02] MEDS: DONEPEZIL HCL 10 MG TABLET (FP) PO SCH (10:38)
[2019-05-02] MEDS: APIXABAN 2.5 MG TABLET PO SCH ×2 (10:38→21:22)
[2019-05-02] MEDS: TAMSULOSIN HCL 0.4 MG CAP PO SCH (10:38)
--- NOTE | 2019-05-02 10:54 | PN ---
Progress Note, Physician Chief Complaint: tachycardia History of Present Illness: he denies sob or palpitations, including when walked in [place] yesterday. no cp, leg swelling - Current Medication List Current Medications: Active Medications Apixaban (Eliquis -) 2.5 mg PO BID [facility] Last Admin: 05/02/19 10:38 Dose: 2.5 mg Aspirin (Asa -) 81 mg PO DAILY [facility] Last Admin: 05/02/19 10:38 Dose: 81 mg Atorvastatin Calcium (Lipitor -) 20 mg PO HS [facility] Last Admin: 05/01/19 21:17 Dose: 20 mg Carbidopa/Levodopa (Sinemet *Cr* 50/200 -) 1 combo PO 0700,1200,1700 [facility] Last Admin: 05/02/19 06:23 Dose: 1 combo Digoxin (Lanoxin -) 0.125 mg PO DAILY [facility] Last Admin: 05/02/19 10:38 Dose: 0.125 mg Diltiazem HCl (Cardizem Cd -) 120 mg PO DAILY [facility] Last Admin: 05/02/19 10:37 Dose: 120 mg Donepezil HCl (Aricept -) 10 mg PO DAILY [facility] Last Admin: 05/02/19 10:38 Dose: 10 mg Insulin Aspart (Novolog Vial Sliding Scale -) 1 vial SQ ACHS [facility]; Protocol Last Admin: 05/02/19 06:23 Dose: Not Given Memantine (Namenda -) 5 mg PO BID [facility] Last Admin: 05/02/19 10:37 Dose: 5 mg Tamsulosin HCl (Flomax -) 0.4 mg PO DAILY@0830 [facility] Last Admin: 05/02/19 10:38 Dose: 0.4 mg Torsemide (Demadex -) 40 mg PO DAILY [facility] Last Admin: 05/02/19 10:38 Dose: 40 mg - Objective Vital Signs: Vital Signs Temperature 98 F 05/02/19 09:00 Pulse Rate 111 H 05/02/19 10:38 Respiratory Rate 18 05/02/19 09:00 Blood Pressure 127/82 05/02/19 09:00 O2 Sat by Pulse Oximetry (%) 96 05/02/19 09:00 Constitutional: Yes: Well Nourished, No Distress, Calm Cardiovascular: Yes: Pulse Irregular, JVD (possible), S1, S2. No: Gallop, Murmur Respiratory: Yes: Regular, CTA Bilaterally, Diminished (R base). No: Accessory Muscle Use, Rales, Wheezes Extremities: No: Cold Edema: No Neurological: Yes: Alert. No: Seizure Psychiatric: No: Agitated Labs: CBC, BMP 05/01/19 06:34 05/01/19 06:34 Assessment/Plan tele: AFL rates 60s-80s (transiently to 30s (slow AF) during overnight hours). IMP: 1. 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 severe LV systolic dysfuntion, new (on office echo 05/03) 3. CAD s/p CABG (2009: AARUZ to LAD, SVG to PDA, SVG to Ramus sequential to OM ) 4. HTN, DM w/ CKD 5. Parkinson's disease REC: -Rates improved with addition of Dig (used for adjunct rate control as patient with chronic "soft" BP and prior adverse reaction to Metoprolol (dizziness) and refuses to take it. -Continue Cardizem CD; as LV dyfx is suspected to be rate related, should improved with rate control--reasonable to continue it in this setting. -digoxin level ok--same dose -observe HR with ambulation -if rate control cannot be obtained medically, will have to consider flutter ablation -Continue Eliquis adjusted for age, weight and renal fx -torsemide increased 04/30 for rales on exam: atx vs infiltrate R base on CXR. ? JVD on exam (uncertain), no sob or edema--continue same torsemide. monitor bmp -Echo in office with new severe LV dysfx (suspect rate related)--to be repeated after period of rate control. -Nuclear stress friday (as cause of decreased EF)
--- NOTE | 2019-05-02 13:12 | PN ---
Physical Exam: SUBJECTIVE: Patient seen and examined pt is better and has no symptoms of sob, cp or palpitations seen by cardio getting no distress no fever or chills. MORONGO 84 yo male with a significant PMH of AF DM, HTN, BPH, CAD s/p CABG x 5 (2009) , who presents to the ED after being seen in PCP office (Dr Vila) with shortness of breath & palpitations that lasted 30 minutes, according to . Patinet does have ISABEL & orthopnea sleeping w/ 2 pillows. Baseline leg edema that wifes states has been worse over last week. Patient went to PCP office today, and on exam was diaphoretic, pale, & tachycardic. EMS was called for transfer to ED. OBJECTIVE: Vital Signs Period Temp Pulse Resp BP Sys/Franco Pulse Ox Last 24 Hr 97.5 F-98.4 F 84-111 18-20 100-134/50-85 93-96 GENERAL: The patient is awake, alert, and fully oriented, in no acute distress. HEAD: Normal with no signs of trauma. EYES: PERRL, extraocular movements intact, sclera anicteric, conjunctiva clear. No ptosis. ENT: Ears normal, nares patent, oropharynx clear without exudates, moist mucous membranes. NECK: supple. LUNGS: Breath sounds equal, clear to auscultation bilaterally, no wheezes, no crackles, no accessory muscle use. HEART: irregular rate and rhythm, S1, S2 without murmur, rub or gallop. ABDOMEN: Soft, nontender, nondistended, normoactive bowel sounds, no guarding, no rebound, no hepatosplenomegaly, no masses. EXTREMITIES: 2+ pulses, warm, well-perfused, no edema. NEUROLOGICAL: alert and awake and oriented Laboratory Results - last 24 hr 05/01/19 05/01/19 05/02/19 16:24 21:16 05:38 POC Glucometer 132 132 117 Digoxin 05/02/19 06:49 POC Glucometer Digoxin 0.80 Active Medications Generic Name Dose Route Start Last Admin Trade Name Freq PRN Reason Stop Dose Admin Apixaban 2.5 mg 04/28/19 22:00 05/02/19 10:38 Eliquis - PO 2.5 mg BID [facility] Administration Aspirin 81 mg 04/29/19 10:00 05/02/19 10:38 Asa - PO 81 mg DAILY [facility] Administration Atorvastatin Calcium 20 mg 04/29/19 22:00 05/01/19 21:17 Lipitor - PO 20 mg HS JESS Administration Carbidopa/Levodopa 1 combo 04/29/19 07:00 05/02/19 12:31 Sinemet *Cr* 50/200 - PO 1 combo 0700,1200,1700 [facility] Administration Digoxin 0.125 mg 04/30/19 20:00 05/02/19 10:38 Lanoxin - PO 0.125 mg DAILY [facility] Administration Diltiazem HCl 120 mg 04/29/19 10:00 05/02/19 10:37 Cardizem Cd - PO 120 mg DAILY [facility] Administration Donepezil HCl 10 mg 04/29/19 10:00 05/02/19 10:38 Aricept - PO 10 mg DAILY [facility] Administration Insulin Aspart 1 vial 04/28/19 22:00 05/02/19 11:30 Novolog Vial Sliding Scale - SQ Not Given [facility]S [facility] Protocol Memantine 5 mg 04/28/19 22:00 05/02/19 10:37 Namenda - PO 5 mg BID [facility] Administration Tamsulosin HCl 0.4 mg 04/29/19 08:30 05/02/19 10:38 Flomax - PO 0.4 mg DAILY@0830 [facility] Administration Torsemide 40 mg 04/30/19 10:00 05/02/19 10:38 Demadex - PO 40 mg DAILY [facility] Administration ASSESSMENT/PLAN: 1 Atrial fibrillation ./ aflutter his heart rate is controlled He is on eliquis,digoxin and cardizem 2-cad on aspirin and atorvastatin and he is pain free 3- parkinsonism stable continue the sinemet 4-dm he is stable and on sliding scale. 5-bph no symptoms , continue flomax 6 - dementia stable and continue aricept . Visit type - Emergency Visit Emergency Visit: Yes ED Registration Date: 04/28/19 Care time: The patient presented to the Emergency Department on the above date and was hospitalized for further evaluation of their emergent condition. - New Patient This patient is new to me today: Yes Date on this admission: 05/02/19 - Critical Care Critical Care patient: No - Discharge Referral Referred to [facility] Med P.C.: No
[2019-05-02] MEDS: ATORVASTATIN CA 20 MG TABLET (FP) PO SCH (21:22)
[2019-05-03] MEDS: INSULIN SLIDING SCALE (NOVOLOG) 1 VIAL SQ SCH ×4 (06:10→21:58)
--- NOTE | 2019-05-03 07:24 | ECHO ---
Name: BROOKLYN CEDEÑO Exam:Adult Echocardiogram Study Date: 04/29/2019 08:52 AM Age: 84 yrs Height: 67 in MMode/2D Measurements & Calculations IVSd: 1.0 cm Ao root diam: 3.2 cm LVIDd: 5.4 cm LA dimension: 4.9 cm LVIDs: 4.1 cm LVPWd: 1.2 cm LVPWs: 1.7 cm EDV(Teich): 142.4 ml ESV(Teich): 74.1 ml LVOT diam: 2.2 cm RV S Raoul: 12.4 cm/sec Doppler Measurements & Calculations Ao V2 max: 120.8 cm/sec LV V1 max P.2 mmHg Ao max P.9 mmHg LV V1 mean P.3 mmHg Ao V2 mean: 88.4 cm/sec LV V1 max: 73.7 cm/sec Ao mean P.5 mmHg LV V1 mean: 54.0 cm/sec Ao V2 VTI: 21.1 cm LV V1 VTI: 13.3 cm MARIANO(I,D): 2.3 cm2 MARIANO(V,D): 2.3 cm2 MR max raoul: 420.0 cm/sec SV(LVOT): 49.3 ml MR max P.6 mmHg TR max raoul: 271.4 cm/sec PA V2 max: 100.4 cm/sec TR max P.5 mmHg PA max P.1 mmHg RVSP(TR): 39.5 mmHg Med Peak E' Raoul: 5.0 cm/sec RAP systole: 10.0 mmHg Lat Peak E' Raoul: 6.9 cm/sec Left Ventricle Left ventricular systolic function is severely reduced. Ejection Fraction = 25-30%. There is severe g lobal hypokinesis of the left ventricle. Right Ventricle The right ventricle is grossly normal size. The right ventricular systolic function is moderate to se verely reduced. Atria The left atrium is mildly dilated. Right atrial size is normal. Mitral Valve There is mild mitral valve thickening. There is no mitral valve stenosis. There is mild mitral regurg itation. Tricuspid Valve The tricuspid valve is not well visualized, but is grossly normal. There is mild tricuspid regurgitat ion. Right ventricular systolic pressure is elevated at 30-40mmHg. Aortic Valve There is mild aortic sclerosis.;. No hemodynamically significant valvular aortic stenosis. Mild aorti c regurgitation. Pulmonic Valve The pulmonic valve is not well seen, but is grossly normal. There is no pulmonic valvular stenosis. M ild pulmonic valvular regurgitation. Great Vessels The aortic root is normal size. Pericardium/Pleura There is no pericardial effusion. Interpretation Summary There is severe global hypokinesis of the left ventricle. Left ventricular systolic function is severely reduced. Ejection Fraction = 25-30%. The right ventricular systolic function is moderate to severely reduced. The left atrium is mildly dilated. There is mild mitral regurgitation. There is mild tricuspid regurgitation. Right ventricular systolic pressure is elevated at 30-40mmHg. There is mild aortic sclerosis.; Mild aortic regurgitation. There is no pericardial effusion. MD Moore *Hardeep 04/29/2019 10:23 AM
--- NOTE | 2019-05-03 07:41 | PN ---
Progress Note, Physician Chief Complaint: Sent by Dr Vila after seeing in office for c/o SOB & palpitations. No complaints offered overnight. Awaiting TTE & Nuclear ST History of Present Illness: 84 yo male with a significant PMH of AF DM, HTN, BPH, CAD s/p CABG x 5 (2009) , who presents to the ED after being seen in PCP office (Dr Vila) with shortness of breath & palpitations that lasted 30 minutes, according to . Roddy does have ISABEL & orthopnea sleeping w/ 2 pillows. Baseline leg edema that wifes states has been worse over last week. Patient went to PCP office today, and on exam was diaphoretic, pale, & tachycardic. EMS was called for transfer to ED. - Current Medication List Current Medications: Active Medications Apixaban (Eliquis -) 2.5 mg PO BID [facility] Last Admin: 05/02/19 21:22 Dose: 2.5 mg Aspirin (Asa -) 81 mg PO DAILY [facility] Last Admin: 05/02/19 10:38 Dose: 81 mg Atorvastatin Calcium (Lipitor -) 20 mg PO HS [facility] Last Admin: 05/02/19 21:22 Dose: 20 mg Carbidopa/Levodopa (Sinemet *Cr* 50/200 -) 1 combo PO 0700,1200,1700 [facility] Last Admin: 05/03/19 06:10 Dose: Not Given Digoxin (Lanoxin -) 0.125 mg PO DAILY [facility] Last Admin: 05/02/19 10:38 Dose: 0.125 mg Diltiazem HCl (Cardizem Cd -) 120 mg PO DAILY [facility] Last Admin: 05/02/19 10:37 Dose: 120 mg Donepezil HCl (Aricept -) 10 mg PO DAILY [facility] Last Admin: 05/02/19 10:38 Dose: 10 mg Insulin Aspart (Novolog Vial Sliding Scale -) 1 vial SQ [facility]; Protocol Last Admin: 05/03/19 06:10 Dose: Not Given Memantine (Namenda -) 5 mg PO BID [facility] Last Admin: 05/02/19 21:22 Dose: 5 mg Tamsulosin HCl (Flomax -) 0.4 mg PO DAILY@0830 [facility] Last Admin: 05/02/19 10:38 Dose: 0.4 mg Torsemide (Demadex -) 40 mg PO DAILY [facility] Last Admin: 05/02/19 10:38 Dose: 40 mg - Objective Vital Signs: Vital Signs Temperature 98.2 F 05/03/19 05:45 Pulse Rate 86 05/03/19 05:45 Respiratory Rate 20 05/03/19 05:45 Blood Pressure 137/75 05/03/19 05:45 O2 Sat by Pulse Oximetry (%) 96 05/02/19 20:53 Constitutional: Yes: Well Nourished, No Distress, Calm Eyes: Yes: WNL, Conjunctiva Clear, EOM Intact HENT: Yes: WNL, Atraumatic, Normocephalic Neck: Yes: WNL, Supple, Trachea Midline Cardiovascular: Yes: WNL, Pulse Irregular Respiratory: Yes: WNL, Regular, CTA Bilaterally, SOB on Exertion (mild) Gastrointestinal: Yes: WNL, Normal Bowel Sounds, Soft ...Rectal Exam: Yes: Deferred Genitourinary: Yes: WNL Breast(s): Yes: WNL Musculoskeletal: Yes: WNL Extremities: Yes: WNL Edema: No Peripheral Pulses WNL: Yes Integumentary: Yes: WNL Neurological: Yes: WNL, Alert, Oriented, Confusion (at times) ...Motor Strength: WNL, LLE, RLE (used rolling walker) Psychiatric: Yes: WNL, Alert, Oriented Labs: CBC, BMP 05/01/19 06:34 05/01/19 06:34 - ....Imaging Other: Pending (TTE & Nuclear ST) Problem List - Problems (1) HLD (hyperlipidemia) Assessment/Plan: low fat low cholesterol diet c/w atorvastin Code(s): E78.5 - HYPERLIPIDEMIA, UNSPECIFIED (2) Atrial fibrillation with rapid ventricular response Assessment/Plan: AF w/ RVR on CM and EKG on admission , now in aflutter rate controlled c/w cardizem CD c/w Digoxin rate controlled now DIg level .8, maintain current dose maintain K>4.0 , Mg >2,0 TTE/ST planned for today Code(s): I48.91 - UNSPECIFIED ATRIAL FIBRILLATION (3) CHF (congestive heart failure) Assessment/Plan: EF on recent TTE 40-45% c/w increased dose of torsemide cardiology consultation appreciated TTE/ Nuclear ST pending Code(s): I50.9 - HEART FAILURE, UNSPECIFIED (4) Gait instability Assessment/Plan: PT request placed fall precautions Code(s): R26.81 - UNSTEADINESS ON FEET (5) Localized swelling of both lower legs Assessment/Plan: c/w torsemide Code(s): R22.43 - LOCALIZED SWELLING, MASS AND LUMP, LOWER LIMB, BILATERAL (6) Diabetes Assessment/Plan: BGM AC/HS with novolog sliding scale hold metformin Code(s): E11.9 - TYPE 2 DIABETES MELLITUS WITHOUT COMPLICATIONS (7) HTN (hypertension) Assessment/Plan: low fat low cholesterol diet normotensive presently c/w diltiazem Code(s): I10 - ESSENTIAL (PRIMARY) HYPERTENSION (8) Parkinson disease Assessment/Plan: c/w sinemet PT following Code(s): G20 - PARKINSON'S DISEASE (9) Dementia Assessment/Plan: c/w namenda & aricept hold quetiapine, QTc 578 fall precautions frequent orientation encourage family visitation Code(s): F03.90 - UNSPECIFIED DEMENTIA WITHOUT BEHAVIORAL DISTURBANCE (10) Prophylactic measure Assessment/Plan: FEN no need for additional IVF cardiac/diabetic diet monitor electrolytes DVT heparin sq bid Dispo maintain on telemetry full code discharge planning Code(s): Z29.9 - ENCOUNTER FOR PROPHYLACTIC MEASURES, UNSPECIFIED Visit type - Emergency Visit Emergency Visit: Yes ED Registration Date: 04/28/19 Care time: The patient presented to the Emergency Department on the above date and was hospitalized for further evaluation of their emergent condition. - New Patient This patient is new to me today: No - Critical Care Critical Care patient: No - Discharge Referral Referred to [facility] Med P.C.: No
[2019-05-03 08:16] LABS: BASO % 0.9 % (0-2.0); EOS % 1.5 % (0-4.5); HEMATOCRIT 41.1 % (35.4-49); HEMOGLOBIN 13.9 GM/dL (11.7-16.9); LYMPH % 24.9 % (8-40); MCH 29.6 pg (25.7-33.7); MCHC 33.7 g/dl (32.0-35.9); MEAN CELL VOLUME 87.7 fl (80-96); MEAN PLT VOLUME 8.3 fl (7.5-11.1); MONO % 10.8 % (3.8-10.2); NEUT % 61.9 % (42.8-82.8); PLATELET COUNT 208 K/MM3 (134-434); RBC 4.69 M/mm3 (4.00-5.60); RDW 15.4 % (11.9-15.9); WHITE BLOOD COUNT 3.9 K/mm3 (4.0-10.0)
[2019-05-03 08:41] LABS: INR 1.59 (0.83-1.09); PROTHROMBIN TIME (PATIENT) 18.8 SEC (9.7-13.0)
[2019-05-03 08:45] LABS: ALBUMIN 3.3 g/dl (3.4-5.0); ALK PHOS 70 U/L (45-117); ANION GAP 8 MMOL/L (8-16); CALCIUM 8.6 mg/dL (8.5-10.1); CHLORIDE 105 mmol/L (98-107); CO2 29 mmol/L (21-32); CREATININE 1.3 mg/dL (0.55-1.3); GLUCOSE,RANDOM 94 mg/dL (74-106); MAGNESIUM 2.7 mg/dL (1.8-2.4); POTASSIUM 3.8 mmol/L (3.5-5.1); SGOT/AST 23 U/L (15-37); SGPT/ALT 10 U/L (13-61); SODIUM 142 mmol/L (136-145); TOT PROT 6.4 g/dl (6.4-8.2)
[2019-05-03] MEDS ORDERED: REGADENOSON 0.4 MG/5 ML PRE-FILLED SYRINGE IVPUSH ONE ×2 (09:55→10:15)
[2019-05-03] MEDS: MEMANTINE HCL 5 MG TABLET (UD) PO SCH ×2 (12:11→21:53)
[2019-05-03] MEDS: TAMSULOSIN HCL 0.4 MG CAP PO SCH (12:11)
[2019-05-03] MEDS: TORSEMIDE 20 MG TABLET (FP) PO SCH (12:11)
[2019-05-03] MEDS: APIXABAN 2.5 MG TABLET PO SCH ×2 (12:11→21:53)
[2019-05-03] MEDS: DONEPEZIL HCL 10 MG TABLET (FP) PO SCH (12:11)
[2019-05-03] MEDS: ASPIRIN 81 MG CHEWABLE TABLETS PO SCH (12:11)
[2019-05-03] MEDS: DIGOXIN 0.125 MG TABLET (FP) PO SCH (12:12)
--- NOTE | 2019-05-03 16:38 | PN ---
Progress Note (short form) - Note Progress Note: no chest pain, palps, dizziness Current Medications Apixaban (Eliquis -) 2.5 mg PO BID [facility] Last Admin: 05/03/19 12:11 Dose: 2.5 mg Aspirin (Asa -) 81 mg PO DAILY [facility] Last Admin: 05/03/19 12:11 Dose: 81 mg Atorvastatin Calcium (Lipitor -) 20 mg PO HS [facility] Last Admin: 05/02/19 21:22 Dose: 20 mg Carbidopa/Levodopa (Sinemet *Cr* 50/200 -) 1 combo PO 0700,1200,1700 [facility] Last Admin: 05/03/19 12:22 Dose: 1 combo Digoxin (Lanoxin -) 0.125 mg PO DAILY [facility] Last Admin: 05/03/19 12:12 Dose: 0.125 mg Diltiazem HCl (Cardizem Cd -) 120 mg PO DAILY [facility] Last Admin: 05/03/19 12:11 Dose: 120 mg Donepezil HCl (Aricept -) 10 mg PO DAILY [facility] Last Admin: 05/03/19 12:11 Dose: 10 mg Insulin Aspart (Novolog Vial Sliding Scale -) 1 vial SQ [facility]; Protocol Last Admin: 05/03/19 12:09 Dose: Not Given Memantine (Namenda -) 5 mg PO BID [facility] Last Admin: 05/03/19 12:11 Dose: 5 mg Tamsulosin HCl (Flomax -) 0.4 mg PO DAILY@0830 [facility] Last Admin: 05/03/19 12:11 Dose: 0.4 mg Torsemide (Demadex -) 40 mg PO DAILY [facility] Last Admin: 05/03/19 12:11 Dose: 40 mg Vital Signs Period Temp Pulse Resp BP Sys/Franco Pulse Ox Last 24 Hr 97.5 F-98.3 F 83-88 18-20 117-137/51-88 96-96 Constitutional: Yes: Well Nourished, No Distress, Calm Cardiovascular: Yes: Pulse Irregular, JVD (possible), S1, S2. No: Gallop, Murmur Respiratory: Yes: Regular, CTA Bilaterally, Diminished (R base). No: Accessory Muscle Use, Rales, Wheezes Extremities: No: Cold Edema: No Neurological: Yes: Alert. No: Seizure Psychiatric: No: Agitated Assessment/Plan tele: AFL rates 60s-80s (transiently to 30s (slow AF) during overnight hours, episodes of HR 100s). tele alarms 170s-180s due to artifact, strips reviewed IMP: 1. 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 severe LV systolic dysfuntion, new (on office echo 05/03) 3. CAD s/p CABG (42009: ARAUZ to LAD, SVG to PDA, SVG to Ramus sequential to OM ) 4. HTN, DM w/ CKD 5. Parkinson's disease REC: -Rates improved with addition of Dig (used for adjunct rate control as patient with chronic "soft" BP and prior adverse reaction to Metoprolol (dizziness) and refuses to take it. -Continue Cardizem CD; as LV dyfx is suspected to be rate related, should improved with rate control--reasonable to continue it in this setting. -digoxin level ok--same dose -observe HR with ambulation -if rate control cannot be obtained medically, will have to consider flutter ablation - stable for now -Continue Eliquis adjusted for age, weight and renal fx -torsemide increased 04/30 for rales on exam: atx vs infiltrate R base on CXR. ? JVD on exam (uncertain), no sob or edema--continue same torsemide. monitor bmp -Echo in office with new severe LV dysfx (suspect rate related)--to be repeated after period of rate control. -Nuclear stress shows cardiomyopathy, no ischemia
[2019-05-03] MEDS: ATORVASTATIN CA 20 MG TABLET (FP) PO SCH (21:53)
[2019-05-04] MEDS: INSULIN SLIDING SCALE (NOVOLOG) 1 VIAL SQ SCH ×3 (06:06→17:05)
[2019-05-04] MEDS: DIGOXIN 0.125 MG TABLET (FP) PO SCH (09:02)
[2019-05-04] MEDS: TAMSULOSIN HCL 0.4 MG CAP PO SCH (09:02)
[2019-05-04] MEDS: DONEPEZIL HCL 10 MG TABLET (FP) PO SCH (09:02)
[2019-05-04] MEDS: MEMANTINE HCL 5 MG TABLET (UD) PO SCH (09:02)
[2019-05-04 09:03] VITALS: PULSE 65
[2019-05-04] MEDS: ASPIRIN 81 MG CHEWABLE TABLETS PO SCH (09:03)
[2019-05-04] MEDS: APIXABAN 2.5 MG TABLET PO SCH (09:03)
[2019-05-04] MEDS: TORSEMIDE 20 MG TABLET (FP) PO SCH (09:03)
[2019-05-04 10:21] LABS: HEMATOCRIT 43.4 % (35.4-49); HEMOGLOBIN 14.4 GM/dL (11.7-16.9); MCH 29.4 pg (25.7-33.7); MCHC 33.1 g/dl (32.0-35.9); MEAN CELL VOLUME 88.7 fl (80-96); MEAN PLT VOLUME 8.1 fl (7.5-11.1); PLATELET COUNT 218 K/MM3 (134-434); RBC 4.89 M/mm3 (4.00-5.60); RDW 15.9 % (11.9-15.9); WHITE BLOOD COUNT 4.2 K/mm3 (4.0-10.0)
[2019-05-04 10:39] LABS: ALBUMIN 3.2 g/dl (3.4-5.0); BILIRUBIN,TOTAL 0.8 mg/dL (0.2-1); BLOOD UREA NITROGEN 18.6 mg/dL (7-18); CALCIUM 8.8 mg/dL (8.5-10.1); CREATININE 1.1 mg/dL (0.55-1.3); MAGNESIUM 2.6 mg/dL (1.8-2.4); POTASSIUM 3.8 mmol/L (3.5-5.1); TOT PROT 6.2 g/dl (6.4-8.2)
--- NOTE | 2019-05-04 11:25 | PN ---
Progress Note (short form) - Note Progress Note: no chest pain, palps, dizziness Current Medications Apixaban (Eliquis -) 2.5 mg PO BID [facility] Last Admin: 05/04/19 09:03 Dose: 2.5 mg Aspirin (Asa -) 81 mg PO DAILY [facility] Last Admin: 05/04/19 09:03 Dose: 81 mg Atorvastatin Calcium (Lipitor -) 20 mg PO HS [facility] Last Admin: 05/03/19 21:53 Dose: 20 mg Carbidopa/Levodopa (Sinemet *Cr* 50/200 -) 1 combo PO 0700,1200,1700 [facility] Last Admin: 05/04/19 06:06 Dose: 1 combo Digoxin (Lanoxin -) 0.125 mg PO DAILY [facility] Last Admin: 05/04/19 09:02 Dose: 0.125 mg Diltiazem HCl (Cardizem Cd -) 120 mg PO DAILY [facility] Last Admin: 05/04/19 09:02 Dose: 120 mg Donepezil HCl (Aricept -) 10 mg PO DAILY [facility] Last Admin: 05/04/19 09:02 Dose: 10 mg Insulin Aspart (Novolog Vial Sliding Scale -) 1 vial SQ [facility]; Protocol Last Admin: 05/04/19 06:06 Dose: Not Given Memantine (Namenda -) 5 mg PO BID [facility] Last Admin: 05/04/19 09:02 Dose: 5 mg Tamsulosin HCl (Flomax -) 0.4 mg PO DAILY@0830 [facility] Last Admin: 05/04/19 09:02 Dose: 0.4 mg Torsemide (Demadex -) 40 mg PO DAILY [facility] Last Admin: 05/04/19 09:03 Dose: 40 mg Vital Signs Period Temp Pulse Resp BP Sys/Franco Pulse Ox Last 24 Hr 97.5 F-98.1 F 65-91 20-20 102-122/62-71 97 Constitutional: Yes: Well Nourished, No Distress, Calm Cardiovascular: Yes: Pulse Irregular, JVD (possible), S1, S2. No: Gallop, Murmur Respiratory: Yes: Regular, CTA Bilaterally, Diminished (R base). No: Accessory Muscle Use, Rales, Wheezes Extremities: No: Cold Edema: No Neurological: Yes: Alert. No: Seizure Psychiatric: No: Agitated Assessment/Plan tele: AFL rates 60s-80s (transiently to 30s (slow AF) during overnight hours, episodes of HR 100s). tele alarms 170s-180s due to artifact (reading flutter waves as QRS complex, strips reviewed IMP: 1. 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 severe LV systolic dysfuntion, new (on office echo 05/03) 3. CAD s/p CABG (42009: ARAUZ to LAD, SVG to PDA, SVG to Ramus sequential to OM ) 4. HTN, DM w/ CKD 5. Parkinson's disease REC: -Rates improved with addition of Dig (used for adjunct rate control as patient with chronic "soft" BP and prior adverse reaction to Metoprolol (dizziness) and refuses to take it. -Continue Cardizem CD; as LV dyfx is suspected to be rate related, should improved with rate control--reasonable to continue it in this setting. -digoxin level ok--same dose -observe HR with ambulation -if rate control cannot be obtained medically, will have to consider flutter ablation - stable for now -Continue Eliquis adjusted for age, weight and renal fx -torsemide increased 04/30 for rales on exam: atx vs infiltrate R base on CXR. ? JVD on exam (uncertain), no sob or edema--continue same torsemide. monitor bmp -Echo in office with new severe LV dysfx (suspect rate related)--to be repeated after period of rate control. -Nuclear stress shows cardiomyopathy, no ischemia continue torsemide, digoxin, cardizem at current doses. stable for dc from cardiac perspective
[2019-05-04 13:15] VITALS: BP 132/74; TEMP 98.3
--- NOTE | 2019-05-04 14:24 | DS ---
Physical Exam: SUBJECTIVE: Patient seen and examined at the bedside. In no acute distress. feels well. tolerating room air. denies chest pain. OBJECTIVE: cleared for d/c home by cardiology Vital Signs Period Temp Pulse Resp BP Sys/Franco Pulse Ox Last 24 Hr 97.5 F-98.3 F 65-91 20-20 102-132/62-74 97-97 PHYSICAL EXAM GENERAL: The patient is awake, alert, in no acute distress. HEAD: Normal with no signs of trauma. EYES: PERRL, extraocular movements intact, sclera anicteric, conjunctiva clear. ENT: Ears normal, nares patent, oropharynx clear without exudates, moist mucous membranes. NECK: Trachea midline LUNGS: diminished at the bases, tolerating room air ABDOMEN: Soft, nontender, nondistended EXTREMITIES: no edema. NEUROLOGICAL: Normal speech, gait not observed. PSYCH: Normal mood, normal affect. SKIN: Warm, dry, normal turgor, no rashes or lesions noted. LABS Laboratory Results - last 24 hr 05/03/19 05/03/19 05/04/19 16:54 21:56 05:34 WBC RBC Hgb Hct MCV MCH MCHC RDW Plt Count MPV Absolute Neuts (auto) Neutrophils % Lymphocytes % Nucleated RBC % Sodium Potassium Chloride Carbon Dioxide Anion Gap BUN Creatinine Est GFR (CKD-EPI)AfAm Est GFR (CKD-EPI)NonAf POC Glucometer 115 121 121 Random Glucose Calcium Magnesium Total Bilirubin AST ALT Alkaline Phosphatase Total Protein Albumin 05/04/19 05/04/19 05/04/19 09:25 09:25 13:25 WBC 4.2 RBC 4.89 Hgb 14.4 Hct 43.4 MCV 88.7 MCH 29.4 MCHC 33.1 RDW 15.9 Plt Count 218 MPV 8.1 Absolute Neuts (auto) 2.4 Neutrophils % No Result Required. Lymphocytes % No Result Required. Nucleated RBC % 0 Sodium 143 Potassium 3.8 Chloride 107 Carbon Dioxide 30 Anion Gap 6 L BUN 18.6 H Creatinine 1.1 Est GFR (CKD-EPI)AfAm 72.07 Est GFR (CKD-EPI)NonAf 62.19 POC Glucometer 174 Random Glucose 108 H Calcium 8.8 Magnesium 2.6 H Total Bilirubin 0.8 AST 19 ALT 8 L Alkaline Phosphatase 69 Total Protein 6.2 L Albumin 3.2 L HOSPITAL COURSE: Date of Admission:04/28/19 Date of Discharge: 05/04/19 Patient is an 84 year old male with a significant past medical history of diabetes, BPH, atrial fibrilation, hypertension, CAD s/p CABG x 5 (2009). He presented to the ED on 04/28/2019 after being seen by his PCP (Dr Vila) with shortness of breath & palpitations that lasted 30 minutes. He was noted then to be diaphoretic, pale, & tachycardic. EMS was called for transfer to ED. He has been followed by cardiology since admission and will be discharged home today. HOSPITAL COURSE BY PROBLEM LIST: Atrial fibrillation with RVR AF wit RVR on admssion, now rate controlled continue cardizem 120mg daily Continue digoxin 0.125mg daily (dig level 8) Maintain K 4.0, mag 2.0> Hyperlipidemia On low cholesterol diet. continue with statin therapy Congestive Heart Failure EF on recent TTE 40-45% Torsemide increased Nuclear stress shows cardiomyopathy, no ischemia continue torsemide, digoxin, cardizem Cardiology follow up as an outpatient. Diabetes continue metformin Hypertension BP controlled Parkinsons disease on Carbidopa/Levodopa Dementia On Aricept Minutes to complete discharge: 60 Discharge Summary Reason For Visit: CONGESTIVE HEART FAILURE,ATRIAL FILBRILLATION WITH Current Active Problems Atrial fibrillation with rapid ventricular response (Acute) CHF (congestive heart failure) (Acute) Dementia (Acute) HLD (hyperlipidemia) (Acute) Parkinson disease (Acute) Prophylactic measure (Acute) Condition: Improved - Instructions Diet, Activity, Other Instructions: Mr Shaw: You were admitted for congestive heart failure and atrial fibrillation with rapid rate. We will be sending you home with the following home medication recommendations. Start on Digixon 0.125mg once per day, this medication will help control your rate so that your heart does not beat too fast. Continue Cardizem CD 120mg once per day Continue Eliquis 2.5mg TWICE per day. Your Torsemide has been increased to Torsemide 40mg once per day (was torsemide 20mg) . You will need to follow up with Dr. Garcia for follow up and close monitoring of your kidney function since you are on a higher dose of Toresemide. Continue the medications as outlined in your discharge instructions. Thank you for allowing us to care for you Referrals: Rafiq Edwards MD [Primary Care Provider] - 1 Week Tish Messina MD [Staff Physician] - Disposition: HOME - Home Medications Comprehensive Discharge Medication List: Ambulatory Orders Potassium Chloride 20 meq PO DAILY 12/28/14 Tamsulosin HCl 0.4 mg PO DAILY 12/28/14 Aspirin 81 mg PO DAILY 11/13/17 Atorvastatin Ca [Lipitor] 20 mg PO DAILY 11/13/17 metFORMIN HCL [Metformin HCl] 500 mg PO BID 11/13/17 Donepezil HCl [Aricept] 10 mg PO DAILY 11/14/17 Carbidopa/Levodopa *Cr* 50/200 [Sinemet *Cr* 50/200 -] 1 combo PO 0700,1200, 1700 #90 tablet.er 01/01/18 Apixaban [Eliquis -] 2.5 mg PO BID 04/28/19 Cholecalciferol (Vitamin D3) [Vitamin D -] 50,000 unit PO WEEKLY 04/28/19 Diltiazem HCl [Cartia Xt] 120 mg PO DAILY 04/28/19 Memantine HCl [Namenda -] 5 mg PO BID 04/28/19 Quetiapine Fumarate [Seroquel -] 25 mg PO HS 04/28/19 Apixaban [Eliquis] 2.5 mg PO BID #60 tablet 05/04/19 Digoxin [Lanoxin -] 0.125 mg PO DAILY #60 tablet 05/04/19 Torsemide [Demadex -] 40 mg PO DAILY #60 tablet 05/04/19 This patient is new to me today: Yes Date on this admission: 05/04/19 Emergency Visit: Yes ED Registration Date: 04/28/19 Care time: The patient presented to the Emergency Department on the above date and was hospitalized for further evaluation of their emergent condition. Critical Care patient: No - Discharge Referral Referred to [facility] Med P.C.: No
[2019-05-04 15:53] LABS: PLATELET ESTIMATE ADEQUATE
== END 2019-05-04 18:53 | disposition home or self-care (01) | DRG 309 ==
LOC: JER 12:30 → JERBED 15:32 → J4W 17:58
PROVIDERS: ADMIT Internal Medicine; ATTEND Nurse Practitioner Family
DX: I48.92 Unspecified atrial flutter (principal); J98.11 Atelectasis; I13.0 Hypertensive heart and chronic kidney disease with heart failure and stage 1 through stage 4 chronic kidney disease, or unspecified chronic kidney disease; I11.0 Hypertensive heart disease with heart failure; I48.91 Unspecified atrial fibrillation; G20 Parkinson's disease; E78.5 Hyperlipidemia, unspecified; F03.90 Unspecified dementia, unspecified severity, without behavioral disturbance, psychotic disturbance, mood disturbance, and anxiety; N40.0 Benign prostatic hyperplasia without lower urinary tract symptoms; I25.10 Atherosclerotic heart disease of native coronary artery without angina pectoris; Z95.1 Presence of aortocoronary bypass graft; R26.81 Unsteadiness on feet; E11.9 Type 2 diabetes mellitus without complications; R00.0 Tachycardia, unspecified; R22.43 Localized swelling, mass and lump, lower limb, bilateral; I50.9 Heart failure, unspecified; I42.9 Cardiomyopathy, unspecified; N18.9 Chronic kidney disease, unspecified
CPT/HCPCS: 36415; 71045-TC-FY; 78452-TC; 80048; 80053; 80162; 82550; 82553; 82962; 83735; 83880; 84443; 84484; 85025; 85610; 93005; 93010; 93017; 93306-TC; 97116-GP; 97161-GP; 99285-25; A9502; J2785